=== PATIENT | female | born 1975 | race Caucasian/White ===

== ENCOUNTER 2023-04-26 02:41 | Emergency (ER) | payer OTHER, MEDICAID, SELFPAY ==
[2023-04-26 02:55] VITALS: PULSE 71; O2SAT 97
[2023-04-26 02:59] VITALS: BP 176/81; PULSE 74; RESP 26; TEMP 37.1; O2SAT 97; BMI 41.1
--- NOTE | 2023-04-26 03:06 | DI.RAD.S_ITS ---
PROCEDURE: XR CHEST 2V INDICATIONS: PRODUCTIVE COUGH TECHNIQUE: 2 views of the chest were acquired. COMPARISON: None. FINDINGS: Surgical changes and devices: Status post left clavicle fixation Lungs and pleura: Lungs are clear. No pleural effusions or pneumothorax. Mediastinum: Mediastinal contours are normal. Heart size is normal. Bones and chest wall: No suspicious bony abnormalities. Soft tissues appear unremarkable. IMPRESSION: No acute cardiopulmonary abnormality is seen. Findings are concordant with preliminary interpretation provided by [facility]. Approved by: Jo Pardees M.D. on 04/26/2023 at 11:34
--- NOTE | 2023-04-26 03:07 | ED_ITS ---
HPI - URI/Sore Throat General Chief Complaint: Shortness of Breath/Dyspnea Stated Complaint: cold gotten worse, possible uti, back pain, sweats Time Seen by Provider: 04/26/23 02:44 Source: patient Mode of arrival: Ambulatory History of Present Illness HPI Narrative: 47-year-old female with history of asthma presents by private vehicle from home for cough, body aches, possible UTI. Patient was seen at [place] [facility] 3 days ago for productive cough. She states that she tested negative for strep throat and had an unremarkable x-ray. She was sent home with steroids and Tessalon Perles, but states she was upset because she was discharged without antibiotics. She states that she feels like her cough has gotten worse. She feels intermittently hot and cold and continues to have a productive cough. She also states that she thinks that she may have a urinary tract infection. When she coughs she leaks urine and has been wearing a diaper due to her stress incontinence. Related Data Home Medications Medication Instructions Recorded Confirmed CA PANTOTHENATE/FOLIC ACID/VIT 1 tab PO QDAY ##0 07/05/12 (MULTIVITAMIN) Previous Rx's Medication Instructions Recorded hydrocodone-homatropine 5 mg-1.5 5 ml PO Q4-6H PRN cough #200 mL 04/26/23 mg/5 mL oral syrup (Hydrocodone Compound) Allergies Allergy/AdvReac Type Severity Reaction Status Date / Time amoxicillin Allergy Verified 04/26/23 02:59 latex Allergy Verified 04/26/23 02:59 Review of Systems Review of Systems Narrative: Negative except as noted above Patient History Social History Smoking Status: Current every day smoker Smoking Status: Current every day smoker Substance Use Type: does not use Exam Initial Vital Signs Initial Vital Signs: Vital Signs Pulse Rate 71 04/26/23 02:55 Pulse Oximetry 97 04/26/23 02:55 Const: Awake, alert, no acute distress, nontoxic appearing Cardiac: regular rate, regular rhythm RESP: Speaking in complete sentences without dyspnea, soft expiratory wheezes upper lung james GI: Atraumatic, soft, nontender, nondistended, no rebound, no guarding MSK: Atraumatic, full range of motion, pulses equal Skin: Warm, Dry, intact, no rashes Neuro: AO x3, CN II-XII grossly intact, moves all extremities Psych: affect normal, mood normal, not suicidal, not homicidal Course Orders Ordered: ED Orders 04/26/23 03:06 Chest [XR chest 2V] Stat 04/26/23 03:07 UA Complete [Urinalysis and Microscopic] Stat 04/26/23 03:40 CBC Auto Diff [Complete Blood Count AUTO DIFF] Stat CMP [Comprehensive Metabolic Panel] Stat Discontinued Medications Albuterol/Ipratropium (Albuterol/Ipratropium 3 Ml Ampul) 6 ml INH NOW ONE Stop: 04/26/23 03:07 Last Admin: 04/26/23 03:19 Dose: 6 ml Documented By: Dexamethasone (Dexamethasone 10 Mg/Ml Vial) 10 mg IV NOW ONE Stop: 04/26/23 03:07 Last Admin: 04/26/23 03:52 Dose: 10 mg Documented By: Sodium Chloride (Normal Saline 0.9%) 1,000 mls @ 1,000 mls/hr IV BOLUS ONE Stop: 04/26/23 04:05 Last Admin: 04/26/23 03:47 Dose: 1,000 mls/hr Documented By: Ketorolac Tromethamine (Ketorolac 30 Mg/Ml Vial) 15 mg IV NOW ONE Stop: 04/26/23 03:07 Last Admin: 04/26/23 03:50 Dose: 15 mg Documented By: Ondansetron HCl (Ondansetron 4 Mg/2 Ml Inj) 4 mg IV NOW ONE Stop: 04/26/23 03:07 Last Admin: 04/26/23 03:49 Dose: 4 mg Documented By: Vital Signs Vital signs: Vital Signs - 8 hr 04/26/23 02:55 04/26/23 02:59 04/26/23 03:44 Temperature 98.8 F Pulse Rate 71 74 69 Respiratory Rate 26 H Blood Pressure 176/81 H Pulse Oximetry 97 97 99 Oxygen Delivery Method Room Air 04/26/23 03:46 04/26/23 03:46 04/26/23 04:00 Temperature Pulse Rate 68 Respiratory Rate Blood Pressure 150/74 H 149/72 H Pulse Oximetry 97 Oxygen Delivery Method 04/26/23 04:00 Temperature Pulse Rate 63 Respiratory Rate 18 Blood Pressure Pulse Oximetry 96 Oxygen Delivery Method MDM - URI/Sore Throat Lab Data 04/26/23 03:40 04/26/23 03:40 Labs: Lab Results 04/26/23 Range/Units 03:40 WBC 13.4 H (4.5-11.0) X10^3/uL RBC 4.70 (4.0-5.2) X10^6/uL Hgb 13.1 (12.0-16.0) g/dL Hct 39.6 (36-46) % MCV 84.2 (80-100) fL MCH 27.9 (26-34) PG MCHC 33.1 (30-36) % RDW 12.8 (11.6-14.8) % Plt Count 356 (150-400) X10^3/uL Neut % (Auto) 79.3 H (50-75) % Lymph % (Auto) 15.8 L (25-40) % [place] % (Auto) 3.6 (3-14) % Eos % (Auto) 0.1 L (2-4) % Baso % (Auto) 1.2 (0-2) % Neut # (Auto) 86356 H (5727-0365) /uL Lymph # (Auto) 2100 (4971-3419) /uL [place] # (Auto) 500 (0-900) /uL Eos # (Auto) 0 (0-450) /uL Baso # (Auto) 200 H (0-100) /uL Sodium 140 (137-145) mmol/L Potassium 4.1 (3.4-5.1) mmol/L Chloride 107 (98-107) mmol/L Carbon Dioxide 22 (22-32) mmol/L BUN 9 (7-17) mg/dL Creatinine 0.52 (0.52-1.04) mg/dL Estimated GFR > 60 (>60) mL/min BUN/Creatinine Ratio 17.3 (6-22) Glucose 127 H (70-100) mg/dL Calcium 9.2 (8.4-10.2) mg/dL Total Bilirubin 0.3 (0.2-1.3) mg/dL AST 18 (14-36) IU/L ALT 18 (<35) IU/L Alkaline Phosphatase 67 (38-126) U/L Total Protein 7.9 (6.3-8.2) g/dL Albumin 4.1 (3.5-5.0) g/dL Globulin 3.8 (1.7-4.1) g/dL Albumin/Globulin Ratio 1.1 (1.0-2.8) Point of Care Testing Test Results Negative Urine Dip Bedside Urine Glucose Negative Bedside Urine Bilirubin - Negative Bedside Urine Ketone - Negative Urine Specific [place] 1.01 Bedside Urine Occult Blood +/- Bedside Urine pH 7 Bedside Urine Protein - Negative Bedside Urine Urobilinogen - Negative Bedside Urine Nitrite - Negative Bedside Urine Leukocytes - Negative Esterase MDM Narrative Medical decision making narrative: Well-appearing patient with worsening cough with back pain and stress incontinence following an upper respiratory infection. Patient is speaking in complete sentences without dyspnea, saturating well on room air. She does have mild expiratory wheezes on pulmonary exam. We will order additional steroids and breathing treatments. Patient feeling improved after nebulizers and additional steroids. No further wheezing on pulmonary exam. Laboratory work is significant for mild leukocytosis with WBC count 13.4, however she has been on steroids for the last 3 days and has no other signs or symptoms of a bacterial illness. Urinalysis negative for infection. Two-view chest x-ray negative for pneumonia. Patient advised of lab and imaging findings, we will send additional cough medications to pharmacy of choice. Patient advised of the anticipated course of recovering from bronchitis. She states that she has plenty of refills of her albuterol inhaler and does not need any additional at this time. ED return precautions discussed at bedside. Patient expressed understanding of the plan and is in agreement at this time. All questions answered at the time of discharge. Discharge Plan Departure Patient Disposition: Home Clinical Impression: Bronchitis, Bilateral wheezing Instructions: DI for Acute Bronchitis Prescriptions: New hydrocodone-homatropine [Hydrocodone Compound] 5-1.5 mg/5 mL syrup 5 ml PO Q4-6H PRN (Reason: cough) Qty: 200 0RF No Action CA PANTOTHENATE/FOLIC ACID/VIT (MULTIVITAMIN) 1 tab PO QDAY Qty: 0 Referrals: Man Burks MD [Primary Care Provider] - Stand Alone Forms: Patient Portal/API
[2023-04-26] MEDS: ALBUTEROL/IPRATROPIUM 3 ML AMPUL 6 ML INH (03:19)
[2023-04-26 03:44] VITALS: PULSE 69; O2SAT 99
[2023-04-26 03:46] VITALS: BP 150/74; PULSE 68; O2SAT 97
[2023-04-26] MEDS: SODIUM CHLORIDE 0.9% 1,000 ML 1000 ML IV (03:47)
[2023-04-26] MEDS: ONDANSETRON 4 MG/2 ML INJ IV (03:49)
[2023-04-26] MEDS: KETOROLAC 30 MG/ML VIAL 15 MG IV (03:50)
[2023-04-26] MEDS: DEXAMETHASONE 10 MG/ML VIAL IV (03:52)
[2023-04-26 03:53] LABS: Add Manual Diff / Slide Review NO; Basophils Absolute Auto 200 /uL (0-100); Basophils Percent Auto 1.2 % (0-2); Eosinophils Absolute Auto 0 /uL (0-450); Eosinophils Percent Auto 0.1 % (2-4); Hematocrit 39.6 % (36-46); Hemoglobin 13.1 g/dL (12.0-16.0); Lymphocytes Absolute Auto 2100 /uL (1100-4500); Lymphocytes Percent Auto 15.8 % (25-40); Mean Corpuscular HGB Conc 33.1 % (30-36); Mean Corpuscular Hemoglobin 27.9 PG (26-34); Mean Corpuscular Volume 84.2 fL (80-100); Monocytes Absolute Auto 500 /uL (0-900); Monocytes Percent Auto 3.6 % (3-14); Neutrophils Absolute Auto 10600 /uL (1500-7000); Neutrophils Percent Auto 79.3 % (50-75); Platelet Count 356 X10^3/uL (150-400); Red Cell Distribution Width 12.8 % (11.6-14.8); White Blood Cell Count 13.4 X10^3/uL (4.5-11.0)
[2023-04-26 04:00] VITALS: BP 149/72; PULSE 63; RESP 18; O2SAT 96
[2023-04-26 04:02] LABS: Alanine Aminotransferase 18 IU/L (<35); Albumin 4.1 g/dL (3.5-5.0); Albumin Globulin Ratio 1.1 (1.0-2.8); Alkaline Phosphatase 67 U/L (38-126); Aspartate Aminotransferase 18 IU/L (14-36); BUN Creatinine Ratio 17.3 (6-22); Bilirubin Total 0.3 mg/dL (0.2-1.3); Blood Urea Nitrogen 9 mg/dL (7-17); Calcium 9.2 mg/dL (8.4-10.2); Carbon Dioxide 22 mmol/L (22-32); Chloride 107 mmol/L (98-107); Estimated Glomerular Filt Rate > 60 mL/min (>60); Globulin 3.8 g/dL (1.7-4.1); Glucose 127 mg/dL (70-100); HEMOLYSIS < 15 (0-50); Potassium 4.1 mmol/L (3.4-5.1); Sodium 140 mmol/L (137-145); Total Protein 7.9 g/dL (6.3-8.2)
== END 2023-04-26 05:25 | disposition home or self-care (01) ==
PROVIDERS: Emergency Provider Emergency Medicine; PCP Family Medicine
DX: J40 Bronchitis, not specified as acute or chronic (principal)
CPT/HCPCS: 36415; 71046; 80053; 81003; 81025; 85025; 94640; 96374; 96375; 99284; J1100; J1885; J2405

== ENCOUNTER 2023-10-06 02:35 | Emergency (ER) | payer OTHER, MEDICAID, SELFPAY ==
[2023-10-06 02:40] VITALS: PULSE 88; RESP 18; TEMP 36.6; O2SAT 100; BMI 37.3
--- NOTE | 2023-10-06 03:07 | ED.WOUNDLAC ---
HPI - Wound/Laceration General Chief Complaint: Wound/Laceration Stated Complaint: cut finger left hand Time Seen by Provider: 10/06/23 02:40 Source: patient Mode of arrival: Ambulatory History of Present Illness HPI narrative: 47-year-old female presents for evaluation of laceration. Patient accidentally cut her hand on a piece of staying glass at home while trying to find the TV remote. States that she has had a tetanus shot within the last 5 years. She states that the wound bled a lot initially and she did not have a bandage, so she came to the ER. Related Data Home Medications Medication Instructions Recorded Confirmed CA PANTOTHENATE/FOLIC ACID/VIT 1 tab PO QDAY ##0 07/05/12 (MULTIVITAMIN) Previous Rx's Medication Instructions Recorded hydrocodone-homatropine 5 mg-1.5 5 ml PO Q4-6H PRN cough #200 mL 04/26/23 mg/5 mL oral syrup (Hydrocodone Compound) Allergies Allergy/AdvReac Type Severity Reaction Status Date / Time amoxicillin Allergy Verified 04/26/23 02:59 latex Allergy Verified 04/26/23 02:59 Patient History Social History Smoking Status: Current every day smoker Smoking Status: Current every day smoker Substance Use Type: does not use Exam Initial Vital Signs Initial Vital Signs: Vital Signs Temperature 97.9 F 10/06/23 02:40 Pulse Rate 88 10/06/23 02:40 Respiratory Rate 18 10/06/23 02:40 Pulse Oximetry 100 10/06/23 02:40 Oxygen Delivery Method Room Air 10/06/23 02:40 Const: Awake, alert, no acute distress, nontoxic appearing MSK: Atraumatic, full range of motion, pulses equal Skin: Warm, Dry, 1 cm superficial laceration Neuro: AO x3, CN II-XII grossly intact, moves all extremities Course Vital Signs Vital signs: Vital Signs - 8 hr 10/06/23 02:40 Temperature 97.9 F Pulse Rate 88 Respiratory Rate 18 Pulse Oximetry 100 Oxygen Delivery Method Room Air MDM - Wound/Laceration MDM Narrative Medical decision making narrative: Small laceration from stain glass. Up-to-date on tetanus. Wound cleaned by nursing staff. Small amount of Dermabond applied. Band-Aid applied. Extra Band-Aids sent with the patient home Discharge Plan Departure Patient Disposition: Home Clinical Impression: Laceration Instructions: DI for Minor Laceration Activity Restrictions/Additional Instructions: Keep clean and dry. This will heal on its own in the next several days. Prescriptions: No Action CA PANTOTHENATE/FOLIC ACID/VIT (MULTIVITAMIN) 1 tab PO QDAY Qty: 0 hydrocodone-homatropine [Hydrocodone Compound] 5-1.5 mg/5 mL syrup 5 ml PO Q4-6H PRN (Reason: cough) Qty: 200 0RF Referrals: Man Burks MD [Primary Care Provider] - Stand Alone Forms: Patient Portal/API
== END 2023-10-06 03:29 | disposition home or self-care (01) ==
PROVIDERS: Emergency Provider Emergency Medicine; PCP Family Medicine
DX: S61.219A Laceration without foreign body of unspecified finger without damage to nail, initial encounter (principal); W25.XXXA Contact with sharp glass, initial encounter
CPT/HCPCS: 99281; 99282

== ENCOUNTER 2023-10-29 07:19 | Emergency (ER) | payer OTHER, MEDICAID, SELFPAY ==
[2023-10-29 07:37] VITALS: BP 159/106; PULSE 97; RESP 18; TEMP 37.1; O2SAT 98; BMI 41.1
[2023-10-29 07:44] VITALS: PULSE 88
[2023-10-29 07:46] VITALS: BP 159/106; PULSE 97; RESP 18; TEMP 37.1; O2SAT 98; BMI 41.1
--- NOTE | 2023-10-29 07:59 | ED.EXTPRO ---
HPI - Extremity Problem General Chief complaint: Extremity Problem,Nontraumatic Stated complaint: r knee sx 10/27 needs pain meds Time Seen by Provider: 10/29/23 07:43 Source: patient and family Mode of arrival: Wheelchair History of Present Illness HPI Narrative: Patient healthy 48-year-old female presents today with severe right knee pain. She is status post total knee arthroplasty out of orthopedics and [place] she would surgery on October 26. She reports severe pain. She says she ran out of her oxycodone last night her last dose was at 2:30 a.m.. She called yesterday for refill on her medication they were supposed to send it in but they have not. Denies any fever or chills. There is no erythema. She is trying to keep it elevated as much as possible. Related Data Home Medications Medication Instructions Recorded Confirmed CA PANTOTHENATE/FOLIC ACID/VIT 1 tab PO QDAY ##0 07/05/12 (MULTIVITAMIN) Previous Rx's Medication Instructions Recorded hydrocodone-homatropine 5 mg-1.5 5 ml PO Q4-6H PRN cough #200 mL 04/26/23 mg/5 mL oral syrup (Hydrocodone Compound) Allergies Allergy/AdvReac Type Severity Reaction Status Date / Time amoxicillin Allergy Verified 04/26/23 02:59 latex Allergy Verified 04/26/23 02:59 Patient History Social History Smoking Status: Current every day smoker Smoking Status: Current every day smoker Substance Use Type: does not use Exam Initial Vital Signs Initial Vital Signs: Vital Signs Temperature 98.8 F 10/29/23 07:37 Pulse Rate 97 H 10/29/23 07:37 Respiratory Rate 18 10/29/23 07:37 Blood Pressure 159/106 H 10/29/23 07:37 Pulse Oximetry 98 10/29/23 07:37 Oxygen Delivery Method Room Air 10/29/23 07:37 GENERAL: Crying tearful 48-year-old female CARDIOVASCULAR: peripheral pulses in tact, cap refill <2 sec RESPIRATORY: No respiratory distress, speaks in full sentences without difficulty EXTREMITIES: Normal range of motion, no clubbing or edema. Neurovascularly intact Right lower extremity postsurgical bandage in place Candelario wrap in place Candelario wrap has been removed no significant erythema distal pedal pulse is present NEUROLOGICAL: Cranial nerves II through XII grossly intact. Normal gait and speech. SKIN: Warm, dry, no petechiae, no rashes or lesions. Course Orders Ordered: ED Orders 10/29/23 08:03 US perip venous low extrem rt Stat Discontinued Medications Hydromorphone HCl (Hydromorphone 1 Mg Inj) 1 mg SUBCUT NOW ONE Stop: 10/29/23 08:04 Last Admin: 10/29/23 08:22 Dose: 1 mg Documented By: KIKE Oxycodone HCl (Oxycodone Ir 5 Mg Tablet) 10 mg PO NOW ONE Stop: 10/29/23 09:19 Last Admin: 10/29/23 09:44 Dose: 10 mg Documented By: KIKE Vital Signs Vital signs: Vital Signs - 8 hr 10/29/23 07:37 10/29/23 07:44 10/29/23 07:46 Temperature 98.8 F 98.8 F Pulse Rate 97 H 97 H Pulse Rate [Right Posterior Tibial] 88 Respiratory Rate 18 18 Blood Pressure 159/106 H 159/106 H Pulse Oximetry 98 98 Oxygen Delivery Method Room Air Room Air 10/29/23 08:12 10/29/23 09:47 Temperature Pulse Rate 99 H 69 Pulse Rate [Right Posterior Tibial] Respiratory Rate 18 18 Blood Pressure 160/99 H 178/88 H Pulse Oximetry 96 96 Oxygen Delivery Method Room Air MDM - Extremity (Nontraumatic) Imaging Data US - DVT: Radiologist's Impression: PROCEDURE: US [facility] VENOUS LOW EXTREM RT INDICATIONS: POST TKA - SWELLING/PAIN TECHNIQUE: Real-time imaging, as well as color and pulse Doppler interrogation, were performed of the lower extremity deep veins from the inguinal ligament to the popliteal fossa, with documentation of the visualized calf veins. COMPARISON: None. FINDINGS: The common femoral, femoral, popliteal, and the visualized calf veins are normally compressible, and free of intraluminal thrombus. Color and pulse Doppler demonstrate normal phasic intraluminal flow. There is normal augmentation response to distal compression maneuver. Of note, the proximal to mid posterior tibial vein are not well seen; however, the distal posterior tibial vein is compressible with no thrombus. The peroneal vein is not well seen secondary to edema. The focal area of pain in the right lateral knee corresponds an ovoid complex fluid collection measuring 6.6 x 0.8 x 2.8 cm. IMPRESSION: 1. No findings of lower extremity deep venous thrombosis. Of note, the below the knee veins are not well seen secondary to edema. 2. Small complex fluid collection in the right lateral knee corresponds to focal area of pain measuring 6.6 x 0.8 x 2.8 cm which may reflect a hematoma. Dictated by: Enedina Centeno M.D. on 10/29/2023 at 9:07 MDM Narrative Medical decision making narrative: Patient is a 48-year-old female postop day 3. Right TKA presenting today with severe right knee pain. She is out of her oxycodone. He does have significant swelling on exam and she is quite tearful. Peripheral pulses are intact pain is not out of proportion. No concern for compartment syndrome. She has no erythema or evidence of infection. Ultrasound is negative for DVT but does show swelling and fluid collection right lateral knee measuring 6.6 x 0.8 x 2.8 cm probably reflecting a hematoma at the area of pain for patient At this time patient's orthopedic has called in a prescription for her oxycodone. Recommend supportive care elevation and ice. She was given subcutaneous Dilaudid here in the ED which did seem to help Discharge Plan Departure Patient Disposition: Home Clinical Impression: Post-operative pain Activity Restrictions/Additional Instructions: *You have been diagnosed with postoperative pain *What to do: At this time please elevate and ice as much as possible. Ambulation as tolerated. Please talk with your orthopedic surgeon in regards to pain medications *Continue to take medications as directed *Follow up with your primary care provider in 2-3 days or call [phone] *Return to ER if you should have increasing redness fever pain or any new, worsening or concerning symptoms Prescriptions: No Action CA PANTOTHENATE/FOLIC ACID/VIT (MULTIVITAMIN) 1 tab PO QDAY Qty: 0 hydrocodone-homatropine [Hydrocodone Compound] 5-1.5 mg/5 mL syrup 5 ml PO Q4-6H PRN (Reason: cough) Qty: 200 0RF Referrals: Man Burks MD [Primary Care Provider] - Stand Alone Forms: Patient Portal/API
--- NOTE | 2023-10-29 08:03 | DI.US.S_ITS ---
PROCEDURE: US PERIPH VENOUS LOW EXTREM RT INDICATIONS: POST TKA - SWELLING/PAIN TECHNIQUE: Real-time imaging, as well as color and pulse Doppler interrogation, were performed of the lower extremity deep veins from the inguinal ligament to the popliteal fossa, with documentation of the visualized calf veins. COMPARISON: None. FINDINGS: The common femoral, femoral, popliteal, and the visualized calf veins are normally compressible, and free of intraluminal thrombus. Color and pulse Doppler demonstrate normal phasic intraluminal flow. There is normal augmentation response to distal compression maneuver. Of note, the proximal to mid posterior tibial vein are not well seen; however, the distal posterior tibial vein is compressible with no thrombus. The peroneal vein is not well seen secondary to edema. The focal area of pain in the right lateral knee corresponds an ovoid complex fluid collection measuring 6.6 x 0.8 x 2.8 cm. IMPRESSION: 1. No findings of lower extremity deep venous thrombosis. Of note, the below the knee veins are not well seen secondary to edema. 2. Small complex fluid collection in the right lateral knee corresponds to focal area of pain measuring 6.6 x 0.8 x 2.8 cm which may reflect a hematoma. Dictated by: Enedina Centeno M.D. on 10/29/2023 at 9:07 Approved by: Enedina Centeno M.D. on 10/29/2023 at 9:09
[2023-10-29 08:12] VITALS: BP 160/99; PULSE 99; RESP 18; O2SAT 96
[2023-10-29] MEDS: HYDROMORPHONE 1 MG INJ SUBCUT (08:22)
[2023-10-29] MEDS: OXYCODONE IR 5 MG TABLET 10 MG PO (09:44)
[2023-10-29 09:47] VITALS: BP 178/88; PULSE 69; RESP 18; O2SAT 96
== END 2023-10-29 09:55 | disposition home or self-care (01) ==
PROVIDERS: Emergency Provider Emergency Medicine; Family Provider Family Medicine; PCP Family Medicine
DX: G89.18 Other acute postprocedural pain (principal); M25.561 Pain in right knee; Z96.651 Presence of right artificial knee joint
CPT/HCPCS: 93971; 96372; 99283; J1170

== ENCOUNTER 2024-01-19 13:45 | Outpatient (RCR) | payer OTHER, MEDICAID, SELFPAY ==
--- NOTE | 2023-10-30 15:55 | PT.OIE ---
Current Diagnoses Unilateral primary osteoarthritis, right knee (10/30/23) Stiffness of right knee, not elsewhere classified (10/30/23) Other lack of coordination (10/30/23) Weakness (10/30/23) Visit Care Team Role Provider Type Man Burks MD Family Provider Non-Staff Primary Care Provider Specialty: Family Practice Address: [address] [place] [address], [id number] Email: Abe Cordova DO Attending Provider Non-Staff Referring Provider Specialty: Orthopedic Surgery Address: [address] [place] [address], [id number] Email: Physical Therapy Initial Evaluation PT-OP-A Visit Information Start: 10/30/23 07:30 Freq: Status: Active Protocol: Document 10/30/23 09:03 NM (Rec: 10/30/23 09:54 NM [id number]) Out-Patient Physical Therapy Visit Information Visit Information Visit Type Initial Evaluation Visit Note DOS: 10/27/23 R TKA Latex allergy Visit Start Time 09:05 Visit Stop Time 09:50 Visit Number 04/01 Evaluation Information Evaluation Date 10/30/23 Precautions Precautions latex allergy R TKA DOS 10/27/23 PT-OP-B Current Condition Start: 10/30/23 07:30 Freq: Status: Active Protocol: Document 10/30/23 09:03 NM (Rec: 10/30/23 09:54 NM [id number]) Current Condition History of Current Condition Onset Date DOS 10/27/23 Current Complaints pain, limited ROM and mobility History of Current Condition Pt present s/p R TKA from Dr. Abe Cordova on 10/26, [facility]. She presents with w /c, standard walker. She went to ED yesterday due to pain, she did not have her medication (oxycodone). Pt states that she had severe degeneration of her R knee, no specific AL. 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 States that she thinks she tore something in her L knee due to pain; severely hyperextends her L knee. She did not use an AD prior to surgery but had limited mobility. She is using standard walker at home, working on WB status. She is doing toe circles, ankle pumps, toe wiggles following discharge from hospital. She live with and her mom in an apartment. Pt lives in a home with an elevator, has stairs (lives on 3rd floor). Has a w/c, shower chair, FWW. Her leg is wrapped with soraya bandage, pt states has removed soraya bandage. Wearing 1 sandal . Pt is icing and elevating. Treatment Goals Patient/Caregiver Goals wants to be able to kneel, stairs PT-OP-C Subjective Start: 10/30/23 07:30 Freq: Status: Active Protocol: Document 10/30/23 09:03 NM (Rec: 10/30/23 09:54 NM [id number]) OP-PT Subjective Patient Comments Patient Comments pt consents to participate in PT Patient Questionnaires Lower Extremity Functional Scale LEFS Score 50 OP-PT Pain Assessment Location R knee Pain Location Details anterior knee to foot Intensity 8 Scale Used Numeric (0 - 10) Description Aching,Sharp Frequency Constant Pain Aggravating Factors Position,Changing Position,ADL 's,Activity,Standing,Sitting, Walking Pain Alleviating Factors Cold,Rest PT-OP-F Manual Assessment Start: 10/30/23 07:30 Freq: Status: Active Protocol: Document 10/30/23 09:03 NM (Rec: 10/30/23 17:12 NM [id number]) Manual Assessments Soft Tissue Assessment Soft Tissue Mobility Assessment Increased edema along entire RLE. Decreased R heel cord length Joint Mobility Assessment Joint Mobility Assessment Decreased AROM/PROM R knee with empty end feel PT-OP-G Mobility & Gait Start: 10/30/23 07:30 Freq: Status: Active Protocol: Document 10/30/23 09:03 NM (Rec: 10/30/23 17:12 NM [id number]) OP Mobility Evaluation Bed Mobility Rolling min A to assist with RLE Supine to and from Sit min A to assist with RLE to EOB Transfers Sit to Stand CGA to steady to standard walker, RLE in front and pt NWB OP Gait Assessment Gait Gait Assistance Required: Contact Guard Assist Distance (Feet) 20 Able to Maintain Weight Bearing Status No During Gait Assistive Devices Assistive Device Gait Belt,Standard Walker Gait Deviations General Gait Pattern Antalgic,Decreased Stride Length,Step-to Gait Factors Limiting Gait Function Factors Limiting Gait Function Decreased Activity Tolerance, Decreased Strength,Difficulty Following Directions, Incoordination,Limited Range of Motion,Pain,Poor Balance Comments Gait Comments Pt NWB on RLE despite education regarding WBAT. RLE is plantarflexed PT-OP-J Posture/Palpation/Skin Start: 10/30/23 07:30 Freq: Status: Active Protocol: Document 10/30/23 09:03 NM (Rec: 10/30/23 09:54 NM [id number]) Posture Evaluation Position Standing Head/C-Spine Posture Forward Head L-Spine Posture Increased Lordosis Shoulder Posture (L) Rounded,(R) Rounded,(L) Forward,(R) Forward Pelvis Posture Anteriorly Tilted Weight Distribution Weight Shifted Left,Decreased Wt.Bear on (R) Hip Posture (L) Externally Rotated,(R) Externally Rotated Knee Posture (L) Genu Valgus,(R) Genu Valgus Patellar Posture (L) Superior,(R) Superior Ankle/Foot Posture (R) Plantarflexed Comments Posture Comments Demos strong L knee hyperextension Palpation Assessment Location R knee Palpation Findings Edema,Soft Tissue Tightness Palpation Details Increased edema entire RLE, especially near incision No tenderness along posterior calf to knee/thigh Tenderness along R knee Skin Assessment Circumference Measurement RLE Location ankle figure 8 : 54 cm Comments around patellar: 45 cm Incisional Assessment Incision Appearance/Comments Incision covered by bandage with 1 spot of blood. Otherwise, clean, dry and intact. No signs or symptoms of infection or DVT Other Assessments Skin Assessment Comments Bruising along shanna-lateral thigh, posterior calf PT-OP-K Range of Motion Start: 10/30/23 07:30 Freq: Status: Active Protocol: Document 10/30/23 09:03 NM (Rec: 10/30/23 09:54 NM [id number]) Knee Goniometric Range of Motion Knee Right Flexion Active (degrees) 50 Extension Active (degrees) 20 Comments empty end feel Left Flexion Active (degrees) 120 Hyper-Extension Active 5 PT-OP-M Strength Start: 10/30/23 07:30 Freq: Status: Active Protocol: Document 10/30/23 09:03 NM (Rec: 10/30/23 09:54 NM [id number]) Hip Strength Hip Manual Muscle Testing Right Flexion (L2) 3- Fair- Extension (S1) 3- Fair- Abduction 3- Fair- Adduction 3- Fair- Comments extension tested in standing Left Flexion (L2) 4- Good- Extension (S1) 4- Good- Abduction 4- Good- Adduction 4- Good- Comments extension tested in standing Knee Strength Knee Manual Muscle Testing Right Flexion (S2) 3 Fair Extension (L3) 1 Trace Left Flexion (S2) 4- Good- Extension (L3) 4- Good- Ankle/Foot Strength Ankle and Foot Manual Muscle Testing Right Dorsiflexion (L4) 3+ Fair+ Plantarflexion (S1) 4+ Good+ Left Dorsiflexion (L4) 4 Good Plantarflexion (S1) 4 Good Inversion 4 Good PT-OP-Q Treatments Start: 10/30/23 07:30 Freq: Status: Active Protocol: Document 10/30/23 09:03 NM (Rec: 10/30/23 17:12 NM [id number]) Therapeutic Exercises Supine Exercises knee extension stretch Supine Exercise Name gravity assisted Side right Equipment Used towel roll under ankle Reps/Minutes 30 quad set Supine Exercise Name long sitting Side right Equipment Used small pillow under knee Reps/Minutes 10x2 hold Comments PT tapping at quad to facilitate; edu to perform tapping at home ankle pumps Supine Exercise Name for swelling management Side right Reps/Minutes 30 Sitting Exercises knee extension stretch Sitting Exercise Name gravity assisted (HEP) Side right Equipment Used heel rest of w/c Reps/Minutes 60 Comments cued to use lower surface vs chair, short times only knee flexion stretch Sitting Exercise Name slide RLE bwd, then L assist to flex ext (HEP) Side right Equipment Used AAROM Reps/Minutes 10 with 3 hold Comments cued to remain gentle, not push into pain heel slides Sitting Exercise Name long sitting; AAROM (HEP) Side right Equipment Used gait belt; cued AROM > AAROM to tolerance Reps/Minutes 2x10 Comments reports loosens w/ activity Self-Care/Home Management Treatment Education Patient Education Pain Management,Safety Other Education Education on signs and symptoms of DVT, infection with emphasis to immediately go to ER if occurs Recommended getting FWW for better mobility and to improve WB status PT-OP-T Assessment and Plan Start: 10/30/23 07:30 Freq: Status: Active Protocol: Document 10/30/23 09:03 NM (Rec: 10/30/23 17:12 NM [id number]) Physical Therapy Assessment Rehab Potential Rehabilitation Potential Fair Evaluation Complexity Number of Personal Factors/Comorbidities 3 or More Number of Body Systems Impaired 4 or More Clinical Presentation at Evaluation Stable Impairments Impairments Activity Tolerance,Balance, Edema,Functional Activities, Functional Mobility,Gait, Integument,Pain,Posture,ROM, Sensation,Soft Tissue Mobility ,Strength,Transfers Other Concerns Barriers to Rehabilitation PMH: blood pressure, falls, fibromyalgia, headaches, arthritis, neck pain, back pain, seizures Goals Six Impairment R knee flexion AROM lacking; currenlty 50 deg Short Term Goal (STG) Pt will improve R knee flexion to at least 90 deg in order to demonstrate improved ROM for stairs and gait STG Duration 6 weeks Skilled Nursing Goal (LTG) Pt will improve R knee flexion to at least 115 deg in order to demonstrate improved ROM for stairs and gait LTG Duration 10 weeks Five Impairment stairs Short Term Goal (STG) Pt will be able to perform at least 10 step ups with RLE and 1 or fewer hand rail assist in order to demonstrate increased R knee ROM and strength STG Duration 6 weeks Skilled Nursing Goal (LTG) Pt will perform at least 12 stairs with reciprocal pattern and 1 or fewer hand rail assist in order to demonstrate improved BLE strength and R knee mobility to perform stairs up to apartment LTG Duration 12 weeks Four Impairment gait Short Term Goal (STG) Pt will ambulate without LRAD at least short community distances (500 ft) in order to demonstrate improved BLE strength and normalized gait mechanics, if appropriate STG Duration 6 weeks Skilled Nursing Goal (LTG) Pt will ambulate without LRAD with normalized gait mechanics at least 1000 ft in order to demonstrate improved BLE strength, if appropriate LTG Duration 12 weeks Three Impairment transfers Short Term Goal (STG) Pt will be able to transfer on /off bed IND in order to demonstrate improved strength and less caregiver burden STG Duration 3 weeks Skilled Nursing Goal (LTG) Pt will be able to perform at least 10 STS with or without LRAD in order to demonstrate improved BLE strength for transfers and gait LTG Duration 12 weeks Two Impairment R knee strength Short Term Goal (STG) Pt will improve R knee flex/ ext strength to at least 4-/5 MMT in order to demonstrate increased strength for gait, transfers, and functional mobility STG Duration 8 weeks Telephoner Goal (LTG) Pt will improve R knee flex/ ext strength to at least 4+/5 MMT in order to demonstrate increased strength for gait, transfers, and functional mobility LTG Duration 12 weeks One Impairment R knee AROM ext lacking 20 deg Short Term Goal (STG) Pt will improve R knee extension AROM to at least 10 deg in order to improve terminal extension for gait STG Duration 4 weeks Skilled Nursing Goal (LTG) Pt will improve R knee extension AROM to at least 3 deg in order to improve terminal extension for gait LTG Duration 8 weeks Assessment Summary Assessment Pt is a 48 y.o. female presenting s/p R TKA performed on 10/28/23. Pt is currently using a wheelchair for mobility and a standard walker for ambulation; pt has several DME in her home. Pt is able to be WBAT, but is currently not placing weight on RLE due to pain during gait . PT educated pt on WB precautions, in addition to recommending use of FWW instead of standard walker. Pt currently has impairments in R knee ROM, strength, pain management, gait, standing tolerance, balance, activity tolerance, and QOL. Currently, pt has decreased quad activation. Pt's pain is well managed with medication and cryotherapy. Pt's incision is covered by bandage which is intact; no signs or symptoms of infection or DVT; pt and family educated on signs and symptoms, in addition to information regarding immediate transport to ED. Pt has limited number of insurance visits; thus, plan to reduce frequency as pt's ROM progresses. PT educated pt on exam findings and strongly emphasized importance of performing HEP for carryover between sessions. She would benefit from skilled PT for R knee mobility and strengthening, gait, and balance training in order to improve activity tolerance and functional mobility. Physical Therapy Plan Frequency and Duration Frequency of Treatment 1-2x/wk Duration of treatment (weeks) 12 Plan of Care Start Date 10/30/23 Plan of Care End Date 01/22/24 Therapeutic Interventions Therapeutic Interventions Balance Training,Gait Training ,Home Exercise Program,Joint Mobilizations,Lymphedema Management,Manual Therapy, Neuromuscular Re-education, Orthotic/Prosthetic Management ,Patient/Caregiver Education, Self-Care/Home Management, Sensory Integration,Soft Tissue Mobilization, Therapeutic Activities, Therapeutic Exercises Modalities Cold Pack/Ice Massage,Electric Stimulation,Hot Packs, Ultrasound Next Visit Focus/Plan Next Note Type Treatment Note Next Visit Plan e-stim quad swelling management. Review HEP: QS, knee flex and ext stretches, Heel slides, seated hip abduction, clams
--- NOTE | 2023-11-02 15:42 | PT.OTN ---
Current Diagnoses Unilateral primary osteoarthritis, right knee (11/02/23) Stiffness of right knee, not elsewhere classified (11/02/23) Other lack of coordination (11/02/23) Weakness (11/02/23) Physical Therapy Treatment Note PT-OP-A Visit Information Start: 10/30/23 07:30 Freq: Status: Active Protocol: Document 11/02/23 09:02 NM (Rec: 11/02/23 09:29 NM [id number]) Out-Patient Physical Therapy Visit Information Visit Information Visit Type Treatment Note Visit Note DOS: 10/27/23 R TKA Latex allergy Visit Start Time 09:02 Visit Stop Time 09:45 Visit Number 05/02 Evaluation Information Evaluation Date 10/30/23 Precautions Precautions latex allergy R TKA DOS 10/27/23 PT-OP-B Current Condition Start: 10/30/23 07:30 Freq: Status: Active Protocol: Document 10/30/23 09:03 NM (Rec: 10/30/23 09:54 NM [id number]) Current Condition History of Current Condition Onset Date DOS 10/27/23 Current Complaints pain, limited ROM and mobility History of Current Condition Pt present s/p R TKA from Dr. Abe Cordova on 10/26, [facility]. She presents with w /c, standard walker. She went to ED yesterday due to pain, she did not have her medication (oxycodone). Pt states that she had severe degeneration of her R knee, no specific AL. 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 States that she thinks she tore something in her L knee due to pain; severely hyperextends her L knee. She did not use an AD prior to surgery but had limited mobility. She is using standard walker at home, working on WB status. She is doing toe circles, ankle pumps, toe wiggles following discharge from hospital. She live with and her mom in an apartment. Pt lives in a home with an elevator, has stairs (lives on 3rd floor). Has a w/c, shower chair, FWW. Her leg is wrapped with soraya bandage, pt states has removed soraya bandage. Wearing 1 sandal . Pt is icing and elevating. Treatment Goals Patient/Caregiver Goals wants to be able to kneel, stairs PT-OP-C Subjective Start: 10/30/23 07:30 Freq: Status: Active Protocol: Document 11/02/23 09:02 NM (Rec: 11/02/23 09:29 NM [id number]) OP-PT Subjective Patient Comments Patient Comments Pt presents with w/c today, no walker. She did not go to [facility] on Thursday to get a different walker, so no walker right now; planning on going tomorrow when open. States / R knee pain, just took a pill this am PT-OP-F Manual Assessment Start: 10/30/23 07:30 Freq: Status: Active Protocol: Document 10/30/23 09:03 NM (Rec: 10/30/23 17:12 NM [id number]) Manual Assessments Soft Tissue Assessment Soft Tissue Mobility Assessment Increased edema along entire RLE. Decreased R heel cord length Joint Mobility Assessment Joint Mobility Assessment Decreased AROM/PROM R knee with empty end feel PT-OP-G Mobility & Gait Start: 10/30/23 07:30 Freq: Status: Active Protocol: Document 10/30/23 09:03 NM (Rec: 10/30/23 17:12 NM [id number]) OP Mobility Evaluation Bed Mobility Rolling min A to assist with RLE Supine to and from Sit min A to assist with RLE to EOB Transfers Sit to Stand CGA to steady to standard walker, RLE in front and pt NWB OP Gait Assessment Gait Gait Assistance Required: Contact Guard Assist Distance (Feet) 20 Able to Maintain Weight Bearing Status No During Gait Assistive Devices Assistive Device Gait Belt,Standard Walker Gait Deviations General Gait Pattern Antalgic,Decreased Stride Length,Step-to Gait Factors Limiting Gait Function Factors Limiting Gait Function Decreased Activity Tolerance, Decreased Strength,Difficulty Following Directions, Incoordination,Limited Range of Motion,Pain,Poor Balance Comments Gait Comments Pt NWB on RLE despite education regarding WBAT. RLE is plantarflexed PT-OP-J Posture/Palpation/Skin Start: 10/30/23 07:30 Freq: Status: Active Protocol: Document 10/30/23 09:03 NM (Rec: 10/30/23 09:54 NM [id number]) Posture Evaluation Position Standing Head/C-Spine Posture Forward Head L-Spine Posture Increased Lordosis Shoulder Posture (L) Rounded,(R) Rounded,(L) Forward,(R) Forward Pelvis Posture Anteriorly Tilted Weight Distribution Weight Shifted Left,Decreased Wt.Bear on (R) Hip Posture (L) Externally Rotated,(R) Externally Rotated Knee Posture (L) Genu Valgus,(R) Genu Valgus Patellar Posture (L) Superior,(R) Superior Ankle/Foot Posture (R) Plantarflexed Comments Posture Comments Demos strong L knee hyperextension Palpation Assessment Location R knee Palpation Findings Edema,Soft Tissue Tightness Palpation Details Increased edema entire RLE, especially near incision No tenderness along posterior calf to knee/thigh Tenderness along R knee Skin Assessment Circumference Measurement RLE Location ankle figure 8 : 54 cm Comments around patellar: 45 cm Incisional Assessment Incision Appearance/Comments Incision covered by bandage with 1 spot of blood. Otherwise, clean, dry and intact. No signs or symptoms of infection or DVT Other Assessments Skin Assessment Comments Bruising along shanna-lateral thigh, posterior calf PT-OP-K Range of Motion Start: 10/30/23 07:30 Freq: Status: Active Protocol: Document 10/30/23 09:03 NM (Rec: 10/30/23 09:54 NM [id number]) Knee Goniometric Range of Motion Knee Right Flexion Active (degrees) 50 Extension Active (degrees) 20 Comments empty end feel Left Flexion Active (degrees) 120 Hyper-Extension Active 5 PT-OP-M Strength Start: 10/30/23 07:30 Freq: Status: Active Protocol: Document 10/30/23 09:03 NM (Rec: 10/30/23 09:54 NM [id number]) Hip Strength Hip Manual Muscle Testing Right Flexion (L2) 3- Fair- Extension (S1) 3- Fair- Abduction 3- Fair- Adduction 3- Fair- Comments extension tested in standing Left Flexion (L2) 4- Good- Extension (S1) 4- Good- Abduction 4- Good- Adduction 4- Good- Comments extension tested in standing Knee Strength Knee Manual Muscle Testing Right Flexion (S2) 3 Fair Extension (L3) 1 Trace Left Flexion (S2) 4- Good- Extension (L3) 4- Good- Ankle/Foot Strength Ankle and Foot Manual Muscle Testing Right Dorsiflexion (L4) 3+ Fair+ Plantarflexion (S1) 4+ Good+ Left Dorsiflexion (L4) 4 Good Plantarflexion (S1) 4 Good Inversion 4 Good PT-OP-Q Treatments Start: 10/30/23 07:30 Freq: Status: Active Protocol: Document 11/02/23 09:02 NM (Rec: 11/02/23 09:29 NM [id number]) Therapeutic Exercises Supine Exercises quad set Supine Exercise Name long sitting Side right Equipment Used small pillow under knee Reps/Minutes 5x3 Comments PT tapping at quad to facilitate; trace activation Sitting Exercises march Sitting Exercise Name edu to trial at home Side right Reps/Minutes 5 Comments very limited ROM LAQ Sitting Exercise Name edu to trial at home Side right Equipment Used pt tapping on quad Reps/Minutes 5 Comments limited ROM heel slides Sitting Exercise Name long sitting; AAROM (HEP review) Side right Equipment Used 1. gait belt; cued AROM > AAROM to tolerance, 2. with roller Reps/Minutes 1. 10 w/ 3, 2. 5 w/ 5 Comments reports loosens w/ activity Gait Training Gait Activity FWW Device Used FWW Level of Assistance close SBA-CGA prn Surface stable Distance/Duration 40 ft Treatment Focus WBAT, foot flat, sequencing Comments Pt continues to demonstrate tendency for NWB on RLE with R foot pointed. Improved with cueing for foot flat in stance (unable to achieve heel strike) and increase use of UE to offload RLE; however, limited WB on RLE. Demos strong step to pattern Manual Therapy Treatment Consent Patient gave verbal consent for manual Yes treatment Soft Tissue Mobilization R knee Body Location swelling management Mobilization Type Rolling Intensity/Depth Superficial Body Position Hooklying Comments Superficial distal > proximal from ankle to thigh to swelling management. Educated on use of compression hose PT-OP-R Modalities Start: 11/02/23 09:29 Freq: Status: Active Protocol: Document 11/02/23 09:02 NM (Rec: 11/02/23 09:33 NM [id number]) Electric Stimulation Electric Stimulation German Stimulation Body Location R quad Intensity 16.5 Frequency 50 bps Contraction Type Normal Patient Position Sitting Comments 8 minutes: 10/20 cycle w/ 5 sec ramp in long sitting. Small pillow under leg for support, performing quad set. Monitored throughout for pain PT-OP-T Assessment and Plan Start: 10/30/23 07:30 Freq: Status: Active Protocol: Document 11/02/23 09:02 NM (Rec: 11/02/23 09:29 NM [id number]) Physical Therapy Assessment Goals Six Impairment R knee flexion AROM lacking; currenlty 50 deg Short Term Goal (STG) Pt will improve R knee flexion to at least 90 deg in order to demonstrate improved ROM for stairs and gait STG Duration 6 weeks Shelter Goal (LTG) Pt will improve R knee flexion to at least 115 deg in order to demonstrate improved ROM for stairs and gait LTG Duration 10 weeks Five Impairment stairs Short Term Goal (STG) Pt will be able to perform at least 10 step ups with RLE and 1 or fewer hand rail assist in order to demonstrate increased R knee ROM and strength STG Duration 6 weeks Social Work Nurse Goal (LTG) Pt will perform at least 12 stairs with reciprocal pattern and 1 or fewer hand rail assist in order to demonstrate improved BLE strength and R knee mobility to perform stairs up to apartment LTG Duration 12 weeks Four Impairment gait Short Term Goal (STG) Pt will ambulate without LRAD at least short community distances (500 ft) in order to demonstrate improved BLE strength and normalized gait mechanics, if appropriate STG Duration 6 weeks Social Work Nurse Goal (LTG) Pt will ambulate without LRAD with normalized gait mechanics at least 1000 ft in order to demonstrate improved BLE strength, if appropriate LTG Duration 12 weeks Three Impairment transfers Short Term Goal (STG) Pt will be able to transfer on /off bed IND in order to demonstrate improved strength and less caregiver burden STG Duration 3 weeks Shelter Goal (LTG) Pt will be able to perform at least 10 STS with or without LRAD in order to demonstrate improved BLE strength for transfers and gait LTG Duration 12 weeks Two Impairment R knee strength Short Term Goal (STG) Pt will improve R knee flex/ ext strength to at least 4-/5 MMT in order to demonstrate increased strength for gait, transfers, and functional mobility STG Duration 8 weeks Social Work Nurse Goal (LTG) Pt will improve R knee flex/ ext strength to at least 4+/5 MMT in order to demonstrate increased strength for gait, transfers, and functional mobility LTG Duration 12 weeks One Impairment R knee AROM ext lacking 20 deg Short Term Goal (STG) Pt will improve R knee extension AROM to at least 10 deg in order to improve terminal extension for gait STG Duration 4 weeks Social Work Nurse Goal (LTG) Pt will improve R knee extension AROM to at least 3 deg in order to improve terminal extension for gait LTG Duration 8 weeks Assessment Summary Assessment Pt tolerated session fair with good effort. Demos small improvement in quad/hip flexor activation compared to at initial evaluation Thursday; however, still trace activation of quad. Strong limitation in R knee extension and flexion AROM. Pt responds well to German e-stim to improve quad facilitation, but still limited; has decreased hip flexion AROM in sitting as well. Initiated manual therapy to assist with superfical soft tissue mobilization and swelling management of RLE. PT re- educated pt on elevation above heart level with cryotherapy. Requires less assist with transfers on/off bed, in addition to STS; still requires at 2 UE assist (1 FWW and 1 on chair) to rise. During gait treatment, pt still demosntrates strong preference for NWB of RLE. Demos slightly smoother motion with FWW than with standard walker, able to use UE to offload better with cueing. Pt also requires cues for WBAT on RLE, PT providing verbal cues for at least foot flat in stance with UE assist vs maintain knee flex with ankle plantarflexion. Pt would benefit from skilled PT for R knee mobility and strengthening in order to improve functional mobility. Physical Therapy Plan Frequency and Duration Frequency of Treatment 1-2x/wk Duration of treatment (weeks) 12 Plan of Care Start Date 10/30/23 Plan of Care End Date 01/22/24 Therapeutic Interventions Therapeutic Interventions Balance Training,Gait Training ,Home Exercise Program,Joint Mobilizations,Lymphedema Management,Manual Therapy, Neuromuscular Re-education, Orthotic/Prosthetic Management ,Patient/Caregiver Education, Self-Care/Home Management, Sensory Integration,Soft Tissue Mobilization, Therapeutic Activities, Therapeutic Exercises Modalities Cold Pack/Ice Massage,Electric Stimulation,Hot Packs, Ultrasound Next Visit Focus/Plan Next Note Type Treatment Note Next Visit Plan e-stim quad swelling management Review HEP: QS amd SAQ, knee flex and ext stretches, Heel slides, seated hip abduction, clams. STS, wall slides
--- NOTE | 2023-11-06 12:53 | PT.OTN ---
Current Diagnoses Unilateral primary osteoarthritis, right knee (11/06/23) Stiffness of right knee, not elsewhere classified (11/06/23) Other lack of coordination (11/06/23) Weakness (11/06/23) Physical Therapy Treatment Note PT-OP-A Visit Information Start: 10/30/23 07:30 Freq: Status: Active Protocol: Document 11/06/23 11:17 NM (Rec: 11/06/23 12:28 NM [id number]) Out-Patient Physical Therapy Visit Information Visit Information Visit Type Treatment Note Visit Note DOS: 10/27/23 R TKA Latex allergy Visit Start Time 11:19 Visit Stop Time 12:09 Visit Number 05/30 Evaluation Information Evaluation Date 10/30/23 Precautions Precautions latex allergy R TKA DOS 10/27/23 PT-OP-B Current Condition Start: 10/30/23 07:30 Freq: Status: Active Protocol: Document 10/30/23 09:03 NM (Rec: 10/30/23 09:54 NM [id number]) Current Condition History of Current Condition Onset Date DOS 10/27/23 Current Complaints pain, limited ROM and mobility History of Current Condition Pt present s/p R TKA from Dr. Abe Cordova on 10/26, [facility]. She presents with w /c, standard walker. She went to ED yesterday due to pain, she did not have her medication (oxycodone). Pt states that she had severe degeneration of her R knee, no specific AL. 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 States that she thinks she tore something in her L knee due to pain; severely hyperextends her L knee. She did not use an AD prior to surgery but had limited mobility. She is using standard walker at home, working on WB status. She is doing toe circles, ankle pumps, toe wiggles following discharge from hospital. She live with and her mom in an apartment. Pt lives in a home with an elevator, has stairs (lives on 3rd floor). Has a w/c, shower chair, FWW. Her leg is wrapped with soraya bandage, pt states has removed soraya bandage. Wearing 1 sandal . Pt is icing and elevating. Treatment Goals Patient/Caregiver Goals wants to be able to kneel, stairs PT-OP-C Subjective Start: 10/30/23 07:30 Freq: Status: Active Protocol: Document 11/06/23 11:17 NM (Rec: 11/06/23 12:28 NM [id number]) OP-PT Subjective Patient Comments Patient Comments Pt presents with increased swelling in RLE, bruising evident at ankle to knee. Swelling is increased at thigh , calf. Pt has been wearing a compression sock but states that it broke so she needs a new one. Her pain levels fluctuate between 7-8/10. Pt also reports that she slept a lot yesterday so didn't walk as much. States better getting into bed PT-OP-F Manual Assessment Start: 10/30/23 07:30 Freq: Status: Active Protocol: Document 10/30/23 09:03 NM (Rec: 10/30/23 17:12 NM [id number]) Manual Assessments Soft Tissue Assessment Soft Tissue Mobility Assessment Increased edema along entire RLE. Decreased R heel cord length Joint Mobility Assessment Joint Mobility Assessment Decreased AROM/PROM R knee with empty end feel PT-OP-G Mobility & Gait Start: 10/30/23 07:30 Freq: Status: Active Protocol: Document 10/30/23 09:03 NM (Rec: 10/30/23 17:12 NM [id number]) OP Mobility Evaluation Bed Mobility Rolling min A to assist with RLE Supine to and from Sit min A to assist with RLE to EOB Transfers Sit to Stand CGA to steady to standard walker, RLE in front and pt NWB OP Gait Assessment Gait Gait Assistance Required: Contact Guard Assist Distance (Feet) 20 Able to Maintain Weight Bearing Status No During Gait Assistive Devices Assistive Device Gait Belt,Standard Walker Gait Deviations General Gait Pattern Antalgic,Decreased Stride Length,Step-to Gait Factors Limiting Gait Function Factors Limiting Gait Function Decreased Activity Tolerance, Decreased Strength,Difficulty Following Directions, Incoordination,Limited Range of Motion,Pain,Poor Balance Comments Gait Comments Pt NWB on RLE despite education regarding WBAT. RLE is plantarflexed PT-OP-J Posture/Palpation/Skin Start: 10/30/23 07:30 Freq: Status: Active Protocol: Document 10/30/23 09:03 NM (Rec: 10/30/23 09:54 NM [id number]) Posture Evaluation Position Standing Head/C-Spine Posture Forward Head L-Spine Posture Increased Lordosis Shoulder Posture (L) Rounded,(R) Rounded,(L) Forward,(R) Forward Pelvis Posture Anteriorly Tilted Weight Distribution Weight Shifted Left,Decreased Wt.Bear on (R) Hip Posture (L) Externally Rotated,(R) Externally Rotated Knee Posture (L) Genu Valgus,(R) Genu Valgus Patellar Posture (L) Superior,(R) Superior Ankle/Foot Posture (R) Plantarflexed Comments Posture Comments Demos strong L knee hyperextension Palpation Assessment Location R knee Palpation Findings Edema,Soft Tissue Tightness Palpation Details Increased edema entire RLE, especially near incision No tenderness along posterior calf to knee/thigh Tenderness along R knee Skin Assessment Circumference Measurement RLE Location ankle figure 8 : 54 cm Comments around patellar: 45 cm Incisional Assessment Incision Appearance/Comments Incision covered by bandage with 1 spot of blood. Otherwise, clean, dry and intact. No signs or symptoms of infection or DVT Other Assessments Skin Assessment Comments Bruising along shanna-lateral thigh, posterior calf PT-OP-K Range of Motion Start: 10/30/23 07:30 Freq: Status: Active Protocol: Document 10/30/23 09:03 NM (Rec: 10/30/23 09:54 NM [id number]) Knee Goniometric Range of Motion Knee Right Flexion Active (degrees) 50 Extension Active (degrees) 20 Comments empty end feel Left Flexion Active (degrees) 120 Hyper-Extension Active 5 PT-OP-M Strength Start: 10/30/23 07:30 Freq: Status: Active Protocol: Document 10/30/23 09:03 NM (Rec: 10/30/23 09:54 NM [id number]) Hip Strength Hip Manual Muscle Testing Right Flexion (L2) 3- Fair- Extension (S1) 3- Fair- Abduction 3- Fair- Adduction 3- Fair- Comments extension tested in standing Left Flexion (L2) 4- Good- Extension (S1) 4- Good- Abduction 4- Good- Adduction 4- Good- Comments extension tested in standing Knee Strength Knee Manual Muscle Testing Right Flexion (S2) 3 Fair Extension (L3) 1 Trace Left Flexion (S2) 4- Good- Extension (L3) 4- Good- Ankle/Foot Strength Ankle and Foot Manual Muscle Testing Right Dorsiflexion (L4) 3+ Fair+ Plantarflexion (S1) 4+ Good+ Left Dorsiflexion (L4) 4 Good Plantarflexion (S1) 4 Good Inversion 4 Good PT-OP-Q Treatments Start: 10/30/23 07:30 Freq: Status: Active Protocol: Document 11/06/23 11:17 NM (Rec: 11/06/23 12:28 NM [id number]) Therapeutic Exercises Supine Exercises SAQ Supine Exercise Name HEP Side right Equipment Used small foam roller Reps/Minutes 2x8 w/ PT assist for TKE at end range Comments improved quad activation, minor end range lag knee flexion Side bilateral Equipment Used blue andorran ball Reps/Minutes 15 ea Comments cued use RLE more than L; ROM improve 90 to 100 deg knee extension stretch Supine Exercise Name gravity assisted Side right Equipment Used towel roll under ankle Reps/Minutes 30 quad set Supine Exercise Name long sitting Side right Equipment Used small pillow under knee Reps/Minutes 5x3 Comments PT tapping at quad to facilitate; trace activation ankle pumps Supine Exercise Name for swelling management Side right Equipment Used elevated on bolster Reps/Minutes 2x60 Sitting Exercises knee extension Side right Resistance AROM Equipment Used foot pressing into blue andorran ball for TKE Reps/Minutes 15 with 2 hold Comments improved quad activation, fatiguing; PT assist w/ positioning march Side right Reps/Minutes 10 Comments warm up; improved ROM LAQ Side right Reps/Minutes 3 Comments improved quad activation and ROM but still limited overall knee flexion stretch Sitting Exercise Name slide RLE bwd, then L assist to flex ext (HEP review) Side right Equipment Used AROM > AAROM w/ slider Reps/Minutes 15 with 3 hold Comments cued to remain gentle, not push into pain Gait Training Gait Activity FWW Device Used FWW Level of Assistance close SBA Surface stable Distance/Duration 100 ft, 50 ft, 25 ft, 25 ft Treatment Focus WBAT, foot flat, sequencing, step through pattern Comments Improved WB on RLE with initial cueing as pt hesitant. Able to maintain foot flat, unable to heel strike but improved toe off from stance phase. Still demos step to pattern with LLE. Requires cues to push with UE more with R stance to decrease pain and improve TKE Manual Therapy Treatment Other Other Manual Treatments Assessment for DVT: Pt continues to present with bruising along R anterior and posterior lower leg, in addition to dark bruises along R heel. No increased redness or temperature compared to LLE . No tenderness along posterior calf except along bruising near knee. (-) Cody' s sign. with Farhad Jiménez, PT Swellin cm at R ankle circumferance (28 cm L), 50 cm at mid calf (30 cm L), 46 cm R at patella (40 cm L), 58 cm figure 8 Self-Care/Home Management Treatment Education Other Education 8 minutes- with Farhad Jiménez , PT, education on signs/ symptoms of DVT and swelling management PT-OP-R Modalities Start: 11/02/23 09:29 Freq: Status: Active Protocol: Document 11/06/23 11:17 NM (Rec: 11/06/23 12:28 NM [id number]) Hot Pack/Cold Pack Treatment Cold Pack Location R knee Patient Position Hooklying Patient Tolerance Good Comments skin PT-OP-T Assessment and Plan Start: 10/30/23 07:30 Freq: Status: Active Protocol: Document 11/06/23 11:17 NM (Rec: 11/06/23 12:28 NM [id number]) Physical Therapy Assessment Goals Six Impairment R knee flexion AROM lacking; currenlty 50 deg Short Term Goal (STG) Pt will improve R knee flexion to at least 90 deg in order to demonstrate improved ROM for stairs and gait STG Duration 6 weeks Shelter Goal (LTG) Pt will improve R knee flexion to at least 115 deg in order to demonstrate improved ROM for stairs and gait LTG Duration 10 weeks Five Impairment stairs Short Term Goal (STG) Pt will be able to perform at least 10 step ups with RLE and 1 or fewer hand rail assist in order to demonstrate increased R knee ROM and strength STG Duration 6 weeks Shelter Goal (LTG) Pt will perform at least 12 stairs with reciprocal pattern and 1 or fewer hand rail assist in order to demonstrate improved BLE strength and R knee mobility to perform stairs up to apartment LTG Duration 12 weeks Four Impairment gait Short Term Goal (STG) Pt will ambulate without LRAD at least short community distances (500 ft) in order to demonstrate improved BLE strength and normalized gait mechanics, if appropriate STG Duration 6 weeks Cissp Goal (LTG) Pt will ambulate without LRAD with normalized gait mechanics at least 1000 ft in order to demonstrate improved BLE strength, if appropriate LTG Duration 12 weeks Three Impairment transfers Short Term Goal (STG) Pt will be able to transfer on /off bed IND in order to demonstrate improved strength and less caregiver burden STG Duration 3 weeks Shelter Goal (LTG) Pt will be able to perform at least 10 STS with or without LRAD in order to demonstrate improved BLE strength for transfers and gait LTG Duration 12 weeks Two Impairment R knee strength Short Term Goal (STG) Pt will improve R knee flex/ ext strength to at least 4-/5 MMT in order to demonstrate increased strength for gait, transfers, and functional mobility STG Duration 8 weeks Cissp Goal (LTG) Pt will improve R knee flex/ ext strength to at least 4+/5 MMT in order to demonstrate increased strength for gait, transfers, and functional mobility LTG Duration 12 weeks One Impairment R knee AROM ext lacking 20 deg Short Term Goal (STG) Pt will improve R knee extension AROM to at least 10 deg in order to improve terminal extension for gait STG Duration 4 weeks Shelter Goal (LTG) Pt will improve R knee extension AROM to at least 3 deg in order to improve terminal extension for gait LTG Duration 8 weeks Assessment Summary Assessment Pt tolerated session well. Currently 10 days post-op. Demos improved quad activation and knee flexion with exercise today. Pt able to perform SAQ with slight knee ext lag compared to last session. Demos good effort. Continued with promoting knee extension ROM and quad facilitation with knee extension into a ball. Better quad/hip flexor activation today in sitting. Pt R knee flexion AROM improved from 90 deg to 100 deg following knee flex on ball. Emphasis on gait training today to improve pt WB on RLE in stance and for improved weight acceptance into foot flat. Pt still demos hesistant step-to gait pattern but improved with reps . Fatigues quickly and limited by decreased activity tolerance. Pt still has increased swelling in RLE. Educated on signs/symptoms DVT . Physical Therapy Plan Frequency and Duration Frequency of Treatment 1-2x/wk Duration of treatment (weeks) 12 Plan of Care Start Date 10/30/23 Plan of Care End Date 01/22/24 Therapeutic Interventions Therapeutic Interventions Balance Training,Gait Training ,Home Exercise Program,Joint Mobilizations,Lymphedema Management,Manual Therapy, Neuromuscular Re-education, Orthotic/Prosthetic Management ,Patient/Caregiver Education, Self-Care/Home Management, Sensory Integration,Soft Tissue Mobilization, Therapeutic Activities, Therapeutic Exercises Modalities Cold Pack/Ice Massage,Electric Stimulation,Hot Packs, Ultrasound Next Visit Focus/Plan Next Note Type Treatment Note Next Visit Plan e-stim quad for SAQ swelling management work STS, QS and SAQ > LAQ, knee ext into ball, wall slide or ball knee flex, knee flex and ext stretches, seated hip abduction, clams. STS, wall slides. Gait to promote WBAT, step through
--- NOTE | 2023-11-10 16:33 | PT.OTN ---
Current Diagnoses Unilateral primary osteoarthritis, right knee (11/13/23) Stiffness of right knee, not elsewhere classified (11/13/23) Other lack of coordination (11/13/23) Weakness (11/13/23) Physical Therapy Treatment Note PT-OP-A Visit Information Start: 10/30/23 07:30 Freq: Status: Active Protocol: Document 11/17/23 16:16 TS (Rec: 11/17/23 16:23 TS [id number]) Out-Patient Physical Therapy Visit Information Visit Information Visit Type Treatment Note Visit Note DOS: 10/27/23 R TKA Latex allergy Visit Start Time 13:45 Visit Stop Time 14:28 Visit Number 06/30 Number of TEST RACK OPERATOR Visits 1 PT-OP-B Current Condition Start: 10/30/23 07:30 Freq: Status: Active Protocol: Document 10/30/23 09:03 NM (Rec: 10/30/23 09:54 NM [id number]) Current Condition History of Current Condition Onset Date DOS 10/27/23 Current Complaints pain, limited ROM and mobility History of Current Condition Pt present s/p R TKA from Dr. Abe Cordova on 10/26, [facility]. She presents with w /c, standard walker. She went to ED yesterday due to pain, she did not have her medication (oxycodone). Pt states that she had severe degeneration of her R knee, no specific AL. 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 States that she thinks she tore something in her L knee due to pain; severely hyperextends her L knee. She did not use an AD prior to surgery but had limited mobility. She is using standard walker at home, working on WB status. She is doing toe circles, ankle pumps, toe wiggles following discharge from hospital. She live with and her mom in an apartment. Pt lives in a home with an elevator, has stairs (lives on 3rd floor). Has a w/c, shower chair, FWW. Her leg is wrapped with soraya bandage, pt states has removed soraya bandage. Wearing 1 sandal . Pt is icing and elevating. Treatment Goals Patient/Caregiver Goals wants to be able to kneel, stairs PT-OP-C Subjective Start: 10/30/23 07:30 Freq: Status: Active Protocol: Document 11/17/23 16:16 TS (Rec: 11/17/23 16:23 TS [id number]) OP-PT Subjective Patient Comments Patient Comments Pt reports using heat on knee for pain. She has been doing her HEP and has been ambulating out in the community. Bruising on leg is mostly gone. PT-OP-F Manual Assessment Start: 10/30/23 07:30 Freq: Status: Active Protocol: Document 10/30/23 09:03 NM (Rec: 10/30/23 17:12 NM [id number]) Manual Assessments Soft Tissue Assessment Soft Tissue Mobility Assessment Increased edema along entire RLE. Decreased R heel cord length Joint Mobility Assessment Joint Mobility Assessment Decreased AROM/PROM R knee with empty end feel PT-OP-G Mobility & Gait Start: 10/30/23 07:30 Freq: Status: Active Protocol: Document 10/30/23 09:03 NM (Rec: 10/30/23 17:12 NM [id number]) OP Mobility Evaluation Bed Mobility Rolling min A to assist with RLE Supine to and from Sit min A to assist with RLE to EOB Transfers Sit to Stand CGA to steady to standard walker, RLE in front and pt NWB OP Gait Assessment Gait Gait Assistance Required: Contact Guard Assist Distance (Feet) 20 Able to Maintain Weight Bearing Status No During Gait Assistive Devices Assistive Device Gait Belt,Standard Walker Gait Deviations General Gait Pattern Antalgic,Decreased Stride Length,Step-to Gait Factors Limiting Gait Function Factors Limiting Gait Function Decreased Activity Tolerance, Decreased Strength,Difficulty Following Directions, Incoordination,Limited Range of Motion,Pain,Poor Balance Comments Gait Comments Pt NWB on RLE despite education regarding WBAT. RLE is plantarflexed PT-OP-J Posture/Palpation/Skin Start: 10/30/23 07:30 Freq: Status: Active Protocol: Document 10/30/23 09:03 NM (Rec: 10/30/23 09:54 NM [id number]) Posture Evaluation Position Standing Head/C-Spine Posture Forward Head L-Spine Posture Increased Lordosis Shoulder Posture (L) Rounded,(R) Rounded,(L) Forward,(R) Forward Pelvis Posture Anteriorly Tilted Weight Distribution Weight Shifted Left,Decreased Wt.Bear on (R) Hip Posture (L) Externally Rotated,(R) Externally Rotated Knee Posture (L) Genu Valgus,(R) Genu Valgus Patellar Posture (L) Superior,(R) Superior Ankle/Foot Posture (R) Plantarflexed Comments Posture Comments Demos strong L knee hyperextension Palpation Assessment Location R knee Palpation Findings Edema,Soft Tissue Tightness Palpation Details Increased edema entire RLE, especially near incision No tenderness along posterior calf to knee/thigh Tenderness along R knee Skin Assessment Circumference Measurement RLE Location ankle figure 8 : 54 cm Comments around patellar: 45 cm Incisional Assessment Incision Appearance/Comments Incision covered by bandage with 1 spot of blood. Otherwise, clean, dry and intact. No signs or symptoms of infection or DVT Other Assessments Skin Assessment Comments Bruising along shanna-lateral thigh, posterior calf PT-OP-K Range of Motion Start: 10/30/23 07:30 Freq: Status: Active Protocol: Document 10/30/23 09:03 NM (Rec: 10/30/23 09:54 NM [id number]) Knee Goniometric Range of Motion Knee Right Flexion Active (degrees) 50 Extension Active (degrees) 20 Comments empty end feel Left Flexion Active (degrees) 120 Hyper-Extension Active 5 PT-OP-M Strength Start: 10/30/23 07:30 Freq: Status: Active Protocol: Document 10/30/23 09:03 NM (Rec: 10/30/23 09:54 NM [id number]) Hip Strength Hip Manual Muscle Testing Right Flexion (L2) 3- Fair- Extension (S1) 3- Fair- Abduction 3- Fair- Adduction 3- Fair- Comments extension tested in standing Left Flexion (L2) 4- Good- Extension (S1) 4- Good- Abduction 4- Good- Adduction 4- Good- Comments extension tested in standing Knee Strength Knee Manual Muscle Testing Right Flexion (S2) 3 Fair Extension (L3) 1 Trace Left Flexion (S2) 4- Good- Extension (L3) 4- Good- Ankle/Foot Strength Ankle and Foot Manual Muscle Testing Right Dorsiflexion (L4) 3+ Fair+ Plantarflexion (S1) 4+ Good+ Left Dorsiflexion (L4) 4 Good Plantarflexion (S1) 4 Good Inversion 4 Good PT-OP-Q Treatments Start: 10/30/23 07:30 Freq: Status: Active Protocol: Document 11/17/23 16:16 TS (Rec: 11/17/23 16:23 TS [id number]) Therapeutic Exercises Supine Exercises knee extension stretch Supine Exercise Name gravity assisted Side right Equipment Used towel roll under ankle Reps/Minutes 30 Comments Feels good stretch. quad set Supine Exercise Name long sitting Side right Equipment Used small pillow under knee Reps/Minutes 5x3 Sitting Exercises march Side right Reps/Minutes 10 LAQ Side right Reps/Minutes 7 Comments Improved quad act. Leans back in sitting for compensation heel slides Sitting Exercise Name long sitting; AAROM (HEP review) Side right Equipment Used AAROM Reps/Minutes 5x5 hold Comments increased knee flexion. Self-Care/Home Management Treatment Education Other Education Educated pt on ice pack use at home and not heat at this time. Ice pack was applied to knee for 10mins due to burning pain in back of calf. Pt reported decreased pain. PT-OP-R Modalities Start: 11/02/23 09:29 Freq: Status: Active Protocol: Document 11/13/23 08:17 NM (Rec: 11/13/23 09:03 NM [id number]) Electric Stimulation Electric Stimulation Congolese Stimulation Body Location R quad Intensity 16.5 Frequency 50 bps Contraction Type Normal Patient Position Sitting Comments 8 minutes: 10/10 cycle w/ 0.5 sec ramp in long sitting and sitting off EOB. Foam roller under leg for support, performing quad set, LAQ, knee ext into ball. Monitored throughout for pain and assessing skin prior/after, improved quad activation PT-OP-T Assessment and Plan Start: 10/30/23 07:30 Freq: Status: Active Protocol: Document 11/17/23 16:16 TS (Rec: 11/17/23 16:23 TS [id number]) Physical Therapy Assessment Goals Six Impairment R knee flexion AROM lacking; currently 50 deg Short Term Goal (STG) Pt will improve R knee flexion to at least 90 deg in order to demonstrate improved ROM for stairs and gait 11/10/23: 89D AROM 11/13/23: 98 deg post manual and wall slides STG Duration 6 weeks Auto Striper Goal (LTG) Pt will improve R knee flexion to at least 115 deg in order to demonstrate improved ROM for stairs and gait LTG Duration 10 weeks Five Impairment stairs Short Term Goal (STG) Pt will be able to perform at least 10 step ups with RLE and 1 or fewer hand rail assist in order to demonstrate increased R knee ROM and strength STG Duration 6 weeks Group Home Goal (LTG) Pt will perform at least 12 stairs with reciprocal pattern and 1 or fewer hand rail assist in order to demonstrate improved BLE strength and R knee mobility to perform stairs up to apartment LTG Duration 12 weeks Four Impairment gait Short Term Goal (STG) Pt will ambulate without LRAD at least short community distances (500 ft) in order to demonstrate improved BLE strength and normalized gait mechanics, if appropriate STG Duration 6 weeks Group Home Goal (LTG) Pt will ambulate without LRAD with normalized gait mechanics at least 1000 ft in order to demonstrate improved BLE strength, if appropriate LTG Duration 12 weeks Three Impairment transfers Short Term Goal (STG) Pt will be able to transfer on /off bed IND in order to demonstrate improved strength and less caregiver burden 11/13/23: pt able to transfer on /off bed IND with minimal pain STG Duration 3 weeks MET Group Home Goal (LTG) Pt will be able to perform at least 10 STS with or without LRAD in order to demonstrate improved BLE strength for transfers and gait LTG Duration 12 weeks Two Impairment R knee strength Short Term Goal (STG) Pt will improve R knee flex/ ext strength to at least 4-/5 MMT in order to demonstrate increased strength for gait, transfers, and functional mobility STG Duration 8 weeks Auto Striper Goal (LTG) Pt will improve R knee flex/ ext strength to at least 4+/5 MMT in order to demonstrate increased strength for gait, transfers, and functional mobility LTG Duration 12 weeks One Impairment R knee AROM ext lacking 20 deg Short Term Goal (STG) Pt will improve R knee extension AROM to at least 10 deg in order to improve terminal extension for gait 11/13/23: lacking 10 deg ext post e-stim and manual tx STG Duration 4 weeks Group Home Goal (LTG) Pt will improve R knee extension AROM to at least 3 deg in order to improve terminal extension for gait LTG Duration 8 weeks Assessment Summary Assessment Pt has increased pain and burning in calf muscle this session. Demonstrates increased quad act with LAQ. She has 89D of AROM this session. Swelling has improved and has slight bruising around ankle. Educated pt on not using heat at this time to reduce swelling, recommended speaking to MD at 2 week follow up about use of heat. [ End ] Physical Therapy Plan Next Visit Focus/Plan Next Visit Plan e-stim quad for SAQ swelling management work STS, QS and SAQ > LAQ, knee ext into ball, wall slide or ball knee flex, knee flex and ext stretches, seated hip abduction, clams. STS, wall
--- NOTE | 2023-11-10 16:44 | PT.OTN ---
Current Diagnoses Unilateral primary osteoarthritis, right knee (11/10/23) Stiffness of right knee, not elsewhere classified (11/10/23) Other lack of coordination (11/10/23) Weakness (11/10/23) Physical Therapy Treatment Note PT-OP-A Visit Information Start: 10/30/23 07:30 Freq: Status: Active Protocol: Document 11/10/23 13:42 TS (Rec: 11/10/23 16:43 TS [id number]) Out-Patient Physical Therapy Visit Information Visit Information Visit Type Treatment Note Visit Note DOS: 10/27/23 R TKA Latex allergy Visit Start Time 13:45 Visit Stop Time 14:28 Visit Number 06/30 Number of ASSISTANT PROFESSOR OF MARINE BIOLOGY Visits 1 PT-OP-B Current Condition Start: 10/30/23 07:30 Freq: Status: Active Protocol: Document 10/30/23 09:03 NM (Rec: 10/30/23 09:54 NM [id number]) Current Condition History of Current Condition Onset Date DOS 10/27/23 Current Complaints pain, limited ROM and mobility History of Current Condition Pt present s/p R TKA from Dr. Abe Cordova on 10/26, [facility]. She presents with w /c, standard walker. She went to ED yesterday due to pain, she did not have her medication (oxycodone). Pt states that she had severe degeneration of her R knee, no specific AL. 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 States that she thinks she tore something in her L knee due to pain; severely hyperextends her L knee. She did not use an AD prior to surgery but had limited mobility. She is using standard walker at home, working on WB status. She is doing toe circles, ankle pumps, toe wiggles following discharge from hospital. She live with and her mom in an apartment. Pt lives in a home with an elevator, has stairs (lives on 3rd floor). Has a w/c, shower chair, FWW. Her leg is wrapped with soraya bandage, pt states has removed soraya bandage. Wearing 1 sandal . Pt is icing and elevating. Treatment Goals Patient/Caregiver Goals wants to be able to kneel, stairs PT-OP-C Subjective Start: 10/30/23 07:30 Freq: Status: Active Protocol: Document 11/10/23 13:42 TS (Rec: 11/10/23 16:43 TS [id number]) OP-PT Subjective Patient Comments Patient Comments Pt reports using heat on knee for pain. She has been doing her HEP and has been ambulating out in the community. Bruising on leg is mostly gone. PT-OP-F Manual Assessment Start: 10/30/23 07:30 Freq: Status: Active Protocol: Document 10/30/23 09:03 NM (Rec: 10/30/23 17:12 NM [id number]) Manual Assessments Soft Tissue Assessment Soft Tissue Mobility Assessment Increased edema along entire RLE. Decreased R heel cord length Joint Mobility Assessment Joint Mobility Assessment Decreased AROM/PROM R knee with empty end feel PT-OP-G Mobility & Gait Start: 10/30/23 07:30 Freq: Status: Active Protocol: Document 10/30/23 09:03 NM (Rec: 10/30/23 17:12 NM [id number]) OP Mobility Evaluation Bed Mobility Rolling min A to assist with RLE Supine to and from Sit min A to assist with RLE to EOB Transfers Sit to Stand CGA to steady to standard walker, RLE in front and pt NWB OP Gait Assessment Gait Gait Assistance Required: Contact Guard Assist Distance (Feet) 20 Able to Maintain Weight Bearing Status No During Gait Assistive Devices Assistive Device Gait Belt,Standard Walker Gait Deviations General Gait Pattern Antalgic,Decreased Stride Length,Step-to Gait Factors Limiting Gait Function Factors Limiting Gait Function Decreased Activity Tolerance, Decreased Strength,Difficulty Following Directions, Incoordination,Limited Range of Motion,Pain,Poor Balance Comments Gait Comments Pt NWB on RLE despite education regarding WBAT. RLE is plantarflexed PT-OP-J Posture/Palpation/Skin Start: 10/30/23 07:30 Freq: Status: Active Protocol: Document 10/30/23 09:03 NM (Rec: 10/30/23 09:54 NM [id number]) Posture Evaluation Position Standing Head/C-Spine Posture Forward Head L-Spine Posture Increased Lordosis Shoulder Posture (L) Rounded,(R) Rounded,(L) Forward,(R) Forward Pelvis Posture Anteriorly Tilted Weight Distribution Weight Shifted Left,Decreased Wt.Bear on (R) Hip Posture (L) Externally Rotated,(R) Externally Rotated Knee Posture (L) Genu Valgus,(R) Genu Valgus Patellar Posture (L) Superior,(R) Superior Ankle/Foot Posture (R) Plantarflexed Comments Posture Comments Demos strong L knee hyperextension Palpation Assessment Location R knee Palpation Findings Edema,Soft Tissue Tightness Palpation Details Increased edema entire RLE, especially near incision No tenderness along posterior calf to knee/thigh Tenderness along R knee Skin Assessment Circumference Measurement RLE Location ankle figure 8 : 54 cm Comments around patellar: 45 cm Incisional Assessment Incision Appearance/Comments Incision covered by bandage with 1 spot of blood. Otherwise, clean, dry and intact. No signs or symptoms of infection or DVT Other Assessments Skin Assessment Comments Bruising along shanna-lateral thigh, posterior calf PT-OP-K Range of Motion Start: 10/30/23 07:30 Freq: Status: Active Protocol: Document 10/30/23 09:03 NM (Rec: 10/30/23 09:54 NM [id number]) Knee Goniometric Range of Motion Knee Right Flexion Active (degrees) 50 Extension Active (degrees) 20 Comments empty end feel Left Flexion Active (degrees) 120 Hyper-Extension Active 5 PT-OP-M Strength Start: 10/30/23 07:30 Freq: Status: Active Protocol: Document 10/30/23 09:03 NM (Rec: 10/30/23 09:54 NM [id number]) Hip Strength Hip Manual Muscle Testing Right Flexion (L2) 3- Fair- Extension (S1) 3- Fair- Abduction 3- Fair- Adduction 3- Fair- Comments extension tested in standing Left Flexion (L2) 4- Good- Extension (S1) 4- Good- Abduction 4- Good- Adduction 4- Good- Comments extension tested in standing Knee Strength Knee Manual Muscle Testing Right Flexion (S2) 3 Fair Extension (L3) 1 Trace Left Flexion (S2) 4- Good- Extension (L3) 4- Good- Ankle/Foot Strength Ankle and Foot Manual Muscle Testing Right Dorsiflexion (L4) 3+ Fair+ Plantarflexion (S1) 4+ Good+ Left Dorsiflexion (L4) 4 Good Plantarflexion (S1) 4 Good Inversion 4 Good PT-OP-Q Treatments Start: 10/30/23 07:30 Freq: Status: Active Protocol: Document 11/10/23 13:42 TS (Rec: 11/10/23 16:43 TS [id number]) Therapeutic Exercises Supine Exercises knee extension stretch Supine Exercise Name gravity assisted Side right Equipment Used towel roll under ankle Reps/Minutes 30 Comments Feels good stretch. quad set Supine Exercise Name long sitting Side right Equipment Used small pillow under knee Reps/Minutes 5x3 Sitting Exercises march Side right Reps/Minutes 10 LAQ Side right Reps/Minutes 7 Comments Improved quad act. Leans back in sitting for compensation heel slides Sitting Exercise Name long sitting; AAROM (HEP review) Side right Equipment Used AAROM Reps/Minutes 5x5 hold Comments increased knee flexion. Self-Care/Home Management Treatment Education Other Education Educated pt on ice pack use at home and not heat at this time. Ice pack was applied to knee for 10mins due to burning pain in back of calf. Pt reported decreased pain. PT-OP-R Modalities Start: 11/02/23 09:29 Freq: Status: Active Protocol: Document 11/06/23 11:17 NM (Rec: 11/06/23 12:28 NM [id number]) Hot Pack/Cold Pack Treatment Cold Pack Location R knee Patient Position Hooklying Patient Tolerance Good Comments skin PT-OP-T Assessment and Plan Start: 10/30/23 07:30 Freq: Status: Active Protocol: Document 11/10/23 13:42 TS (Rec: 11/10/23 16:43 TS [id number]) Physical Therapy Assessment Goals Six Impairment R knee flexion AROM lacking; currenlty 50 deg Short Term Goal (STG) Pt will improve R knee flexion to at least 90 deg in order to demonstrate improved ROM for stairs and gait 11/10/23: 89D AROM STG Duration 6 weeks Penitentiary Goal (LTG) Pt will improve R knee flexion to at least 115 deg in order to demonstrate improved ROM for stairs and gait LTG Duration 10 weeks Five Impairment stairs Short Term Goal (STG) Pt will be able to perform at least 10 step ups with RLE and 1 or fewer hand rail assist in order to demonstrate increased R knee ROM and strength STG Duration 6 weeks Penitentiary Goal (LTG) Pt will perform at least 12 stairs with reciprocal pattern and 1 or fewer hand rail assist in order to demonstrate improved BLE strength and R knee mobility to perform stairs up to apartment LTG Duration 12 weeks Four Impairment gait Short Term Goal (STG) Pt will ambulate without LRAD at least short community distances (500 ft) in order to demonstrate improved BLE strength and normalized gait mechanics, if appropriate STG Duration 6 weeks Penitentiary Goal (LTG) Pt will ambulate without LRAD with normalized gait mechanics at least 1000 ft in order to demonstrate improved BLE strength, if appropriate LTG Duration 12 weeks Three Impairment transfers Short Term Goal (STG) Pt will be able to transfer on /off bed IND in order to demonstrate improved strength and less caregiver burden STG Duration 3 weeks Penitentiary Goal (LTG) Pt will be able to perform at least 10 STS with or without LRAD in order to demonstrate improved BLE strength for transfers and gait LTG Duration 12 weeks Two Impairment R knee strength Short Term Goal (STG) Pt will improve R knee flex/ ext strength to at least 4-/5 MMT in order to demonstrate increased strength for gait, transfers, and functional mobility STG Duration 8 weeks Manager Search Goal (LTG) Pt will improve R knee flex/ ext strength to at least 4+/5 MMT in order to demonstrate increased strength for gait, transfers, and functional mobility LTG Duration 12 weeks One Impairment R knee AROM ext lacking 20 deg Short Term Goal (STG) Pt will improve R knee extension AROM to at least 10 deg in order to improve terminal extension for gait STG Duration 4 weeks Manager Search Goal (LTG) Pt will improve R knee extension AROM to at least 3 deg in order to improve terminal extension for gait LTG Duration 8 weeks Assessment Summary Assessment Pt has increased pain and burning in calf muscle this session. Demonstrates increased quad act with LAQ. She has 89D of AROM this session. Swelling has improved and has slight bruising around ankle. Educated pt on not using heat at this time to reduce swelling, recommended speaking to MD at 2 week follow up about use of heat. Physical Therapy Plan Next Visit Focus/Plan Next Note Type Treatment Note Next Visit Plan e-stim quad for SAQ swelling management work STS, QS and SAQ > LAQ, knee ext into ball, wall slide or ball knee flex, knee flex and ext stretches, seated hip abduction, clams. STS, wall slides. Gait to promote WBAT, step through
--- NOTE | 2023-11-13 13:29 | PT.OTN ---
Current Diagnoses Unilateral primary osteoarthritis, right knee (11/13/23) Stiffness of right knee, not elsewhere classified (11/13/23) Other lack of coordination (11/13/23) Weakness (11/13/23) Physical Therapy Treatment Note PT-OP-A Visit Information Start: 10/30/23 07:30 Freq: Status: Active Protocol: Document 11/13/23 08:17 NM (Rec: 11/13/23 09:03 NM [id number]) Out-Patient Physical Therapy Visit Information Visit Information Visit Type Treatment Note Visit Note DOS: 10/27/23 R TKA Latex allergy Visit Start Time 08:18 Visit Stop Time 09:00 Visit Number 07/30 Number of HOSPICE SOCIAL WORKER Visits 0 Evaluation Information Evaluation Date 10/30/23 Precautions Precautions latex allergy R TKA DOS 10/27/23 PT-OP-B Current Condition Start: 10/30/23 07:30 Freq: Status: Active Protocol: Document 10/30/23 09:03 NM (Rec: 10/30/23 09:54 NM [id number]) Current Condition History of Current Condition Onset Date DOS 10/27/23 Current Complaints pain, limited ROM and mobility History of Current Condition Pt present s/p R TKA from Dr. Abe Cordova on 10/26, [facility]. She presents with w /c, standard walker. She went to ED yesterday due to pain, she did not have her medication (oxycodone). Pt states that she had severe degeneration of her R knee, no specific AL. 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 States that she thinks she tore something in her L knee due to pain; severely hyperextends her L knee. She did not use an AD prior to surgery but had limited mobility. She is using standard walker at home, working on WB status. She is doing toe circles, ankle pumps, toe wiggles following discharge from hospital. She live with and her mom in an apartment. Pt lives in a home with an elevator, has stairs (lives on 3rd floor). Has a w/c, shower chair, FWW. Her leg is wrapped with soraya bandage, pt states has removed soraya bandage. Wearing 1 sandal . Pt is icing and elevating. Treatment Goals Patient/Caregiver Goals wants to be able to kneel, stairs PT-OP-C Subjective Start: 10/30/23 07:30 Freq: Status: Active Protocol: Document 11/13/23 08:17 NM (Rec: 11/13/23 09:03 NM [id number]) OP-PT Subjective Patient Comments Patient Comments Pt reports 6/10 R knee pain today. Saw surgeon yesterday, reports that MD is happy and can remove bandage next week. Pt's swelling is lessened. Reports compliance with HEP 2- 3x/day. States has been trying to FWW, states gets up once every two hours. Feels like walking better but still slow and limited. Tries not to overdo it. Pt states MD said can use heat as desired on scar as long as feels good and does not cause pain. PT-OP-F Manual Assessment Start: 10/30/23 07:30 Freq: Status: Active Protocol: Document 10/30/23 09:03 NM (Rec: 10/30/23 17:12 NM [id number]) Manual Assessments Soft Tissue Assessment Soft Tissue Mobility Assessment Increased edema along entire RLE. Decreased R heel cord length Joint Mobility Assessment Joint Mobility Assessment Decreased AROM/PROM R knee with empty end feel PT-OP-G Mobility & Gait Start: 10/30/23 07:30 Freq: Status: Active Protocol: Document 10/30/23 09:03 NM (Rec: 10/30/23 17:12 NM [id number]) OP Mobility Evaluation Bed Mobility Rolling min A to assist with RLE Supine to and from Sit min A to assist with RLE to EOB Transfers Sit to Stand CGA to steady to standard walker, RLE in front and pt NWB OP Gait Assessment Gait Gait Assistance Required: Contact Guard Assist Distance (Feet) 20 Able to Maintain Weight Bearing Status No During Gait Assistive Devices Assistive Device Gait Belt,Standard Walker Gait Deviations General Gait Pattern Antalgic,Decreased Stride Length,Step-to Gait Factors Limiting Gait Function Factors Limiting Gait Function Decreased Activity Tolerance, Decreased Strength,Difficulty Following Directions, Incoordination,Limited Range of Motion,Pain,Poor Balance Comments Gait Comments Pt NWB on RLE despite education regarding WBAT. RLE is plantarflexed PT-OP-J Posture/Palpation/Skin Start: 10/30/23 07:30 Freq: Status: Active Protocol: Document 10/30/23 09:03 NM (Rec: 10/30/23 09:54 NM [id number]) Posture Evaluation Position Standing Head/C-Spine Posture Forward Head L-Spine Posture Increased Lordosis Shoulder Posture (L) Rounded,(R) Rounded,(L) Forward,(R) Forward Pelvis Posture Anteriorly Tilted Weight Distribution Weight Shifted Left,Decreased Wt.Bear on (R) Hip Posture (L) Externally Rotated,(R) Externally Rotated Knee Posture (L) Genu Valgus,(R) Genu Valgus Patellar Posture (L) Superior,(R) Superior Ankle/Foot Posture (R) Plantarflexed Comments Posture Comments Demos strong L knee hyperextension Palpation Assessment Location R knee Palpation Findings Edema,Soft Tissue Tightness Palpation Details Increased edema entire RLE, especially near incision No tenderness along posterior calf to knee/thigh Tenderness along R knee Skin Assessment Circumference Measurement RLE Location ankle figure 8 : 54 cm Comments around patellar: 45 cm Incisional Assessment Incision Appearance/Comments Incision covered by bandage with 1 spot of blood. Otherwise, clean, dry and intact. No signs or symptoms of infection or DVT Other Assessments Skin Assessment Comments Bruising along shanna-lateral thigh, posterior calf PT-OP-K Range of Motion Start: 10/30/23 07:30 Freq: Status: Active Protocol: Document 10/30/23 09:03 NM (Rec: 10/30/23 09:54 NM [id number]) Knee Goniometric Range of Motion Knee Right Flexion Active (degrees) 50 Extension Active (degrees) 20 Comments empty end feel Left Flexion Active (degrees) 120 Hyper-Extension Active 5 PT-OP-M Strength Start: 10/30/23 07:30 Freq: Status: Active Protocol: Document 10/30/23 09:03 NM (Rec: 10/30/23 09:54 NM [id number]) Hip Strength Hip Manual Muscle Testing Right Flexion (L2) 3- Fair- Extension (S1) 3- Fair- Abduction 3- Fair- Adduction 3- Fair- Comments extension tested in standing Left Flexion (L2) 4- Good- Extension (S1) 4- Good- Abduction 4- Good- Adduction 4- Good- Comments extension tested in standing Knee Strength Knee Manual Muscle Testing Right Flexion (S2) 3 Fair Extension (L3) 1 Trace Left Flexion (S2) 4- Good- Extension (L3) 4- Good- Ankle/Foot Strength Ankle and Foot Manual Muscle Testing Right Dorsiflexion (L4) 3+ Fair+ Plantarflexion (S1) 4+ Good+ Left Dorsiflexion (L4) 4 Good Plantarflexion (S1) 4 Good Inversion 4 Good PT-OP-Q Treatments Start: 10/30/23 07:30 Freq: Status: Active Protocol: Document 11/13/23 08:17 NM (Rec: 11/13/23 09:03 NM [id number]) Therapeutic Exercises Supine Exercises bridge Supine Exercise Name HEP Side bilateral Equipment Used arms across chest Reps/Minutes 2x10x2 Comments RLe slightly further for pain mgmt; cued strong glute squeeze wall slide Supine Exercise Name for knee flexion: 1. sustained stretch, 2. heel slides Side right Reps/Minutes 1. 4 min, 2. 10x2 Comments pre- 92 deg; 98 deg post knee flexion Side bilateral Equipment Used orange sao tomean ball Reps/Minutes 20 ea Comments cued use RLE more than L quad set Supine Exercise Name during e-stim Side right Equipment Used 1/2 foam roller under knee Reps/Minutes 3 min Comments no heel elevation Sitting Exercises knee extension Sitting Exercise Name during e-stim Side right Equipment Used foot pressing into blue sao tomean ball for TKE Reps/Minutes 2 min LAQ Sitting Exercise Name during e-stim Side right Reps/Minutes 3 min Comments less trunk comp, still lacking TKE knee extension stretch Sitting Exercise Name gravity assisted (HEP review) Side right Equipment Used on 1/2 foam roller Reps/Minutes 2x60 Manual Therapy Treatment Consent Patient gave verbal consent for manual Yes treatment Soft Tissue Mobilization R knee Body Location swelling management, HS, quad, calf Mobilization Type Rolling Intensity/Depth Superficial Body Position Hooklying Comments Superficial distal > proximal from ankle to thigh to swelling management. Increased restrictions of HS, hip flexors. Tenderness at posterior knee and distal hamstring Other Other Manual Treatments Bruising noted along posterior heel in strap-like position, dark red/purple. Bruising also noted along R lateral malleolus, deep purple-red. Pt states that she bumped it on her wheelchair PT-OP-R Modalities Start: 11/02/23 09:29 Freq: Status: Active Protocol: Document 11/13/23 08:17 NM (Rec: 11/13/23 09:03 NM [id number]) Electric Stimulation Electric Stimulation Icelandic Stimulation Body Location R quad Intensity 16.5 Frequency 50 bps Contraction Type Normal Patient Position Sitting Comments 8 minutes: 10/10 cycle w/ 0.5 sec ramp in long sitting and sitting off EOB. Foam roller under leg for support, performing quad set, LAQ, knee ext into ball. Monitored throughout for pain and assessing skin prior/after, improved quad activation PT-OP-T Assessment and Plan Start: 10/30/23 07:30 Freq: Status: Active Protocol: Document 11/13/23 08:17 NM (Rec: 11/13/23 09:03 NM [id number]) Physical Therapy Assessment Goals Six Impairment R knee flexion AROM lacking; currently 50 deg Short Term Goal (STG) Pt will improve R knee flexion to at least 90 deg in order to demonstrate improved ROM for stairs and gait 11/10/23: 89D AROM 11/13/23: 98 deg post manual and wall slides STG Duration 6 weeks Skilled Nursing Goal (LTG) Pt will improve R knee flexion to at least 115 deg in order to demonstrate improved ROM for stairs and gait LTG Duration 10 weeks Five Impairment stairs Short Term Goal (STG) Pt will be able to perform at least 10 step ups with RLE and 1 or fewer hand rail assist in order to demonstrate increased R knee ROM and strength STG Duration 6 weeks Sewer Pipe Layer Helper Goal (LTG) Pt will perform at least 12 stairs with reciprocal pattern and 1 or fewer hand rail assist in order to demonstrate improved BLE strength and R knee mobility to perform stairs up to apartment LTG Duration 12 weeks Four Impairment gait Short Term Goal (STG) Pt will ambulate without LRAD at least short community distances (500 ft) in order to demonstrate improved BLE strength and normalized gait mechanics, if appropriate STG Duration 6 weeks Sewer Pipe Layer Helper Goal (LTG) Pt will ambulate without LRAD with normalized gait mechanics at least 1000 ft in order to demonstrate improved BLE strength, if appropriate LTG Duration 12 weeks Three Impairment transfers Short Term Goal (STG) Pt will be able to transfer on /off bed IND in order to demonstrate improved strength and less caregiver burden 11/13/23: pt able to transfer on /off bed IND with minimal pain STG Duration 3 weeks MET Skilled Nursing Goal (LTG) Pt will be able to perform at least 10 STS with or without LRAD in order to demonstrate improved BLE strength for transfers and gait LTG Duration 12 weeks Two Impairment R knee strength Short Term Goal (STG) Pt will improve R knee flex/ ext strength to at least 4-/5 MMT in order to demonstrate increased strength for gait, transfers, and functional mobility STG Duration 8 weeks Sewer Pipe Layer Helper Goal (LTG) Pt will improve R knee flex/ ext strength to at least 4+/5 MMT in order to demonstrate increased strength for gait, transfers, and functional mobility LTG Duration 12 weeks One Impairment R knee AROM ext lacking 20 deg Short Term Goal (STG) Pt will improve R knee extension AROM to at least 10 deg in order to improve terminal extension for gait 11/13/23: lacking 10 deg ext post e-stim and manual tx STG Duration 4 weeks Sewer Pipe Layer Helper Goal (LTG) Pt will improve R knee extension AROM to at least 3 deg in order to improve terminal extension for gait LTG Duration 8 weeks Assessment Summary Assessment Pt tolerated session well. Currently 2 weeks post op. Pt has 98 deg R knee flexion at end of session, limited by swelling, pain, and girth of lower calf muscle. Progressed to wall slides to improve R knee flexion AROM; cues required to prevent pt from remaining within comfortable knee flexion ROM. Pt progressed to bridge. Educated to avoid maintaining hip ER positioning in sitting and supine for sustained periods. Demos better quad activation today with LAQ, knee ext, but lacking 10 deg of terminal knee extension. Continued with Icelandic e-stim to improve quad activation. PT educated on ambulating with FWW at home for safety since she reports her balance feels off and to ambulate several times per hour to help with swelling and stiffness management. Pt would benefit from skilled PT for R knee flexibility and strengthening to improve functional mobility and transfers. Physical Therapy Plan Frequency and Duration Frequency of Treatment 1-2x/wk Duration of treatment (weeks) 12 Plan of Care Start Date 10/30/23 Plan of Care End Date 01/22/24 Therapeutic Interventions Therapeutic Interventions Balance Training,Gait Training ,Home Exercise Program,Joint Mobilizations,Lymphedema Management,Manual Therapy, Neuromuscular Re-education, Orthotic/Prosthetic Management ,Patient/Caregiver Education, Self-Care/Home Management, Sensory Integration,Soft Tissue Mobilization, Therapeutic Activities, Therapeutic Exercises Modalities Cold Pack/Ice Massage,Electric Stimulation,Hot Packs, Ultrasound Next Visit Focus/Plan Next Note Type Treatment Note Next Visit Plan Practice gait with 4WW if pt brings next session. e-stim quad for LAQ, knee ext. STS from elevated surface to FWW, SAQ > LAQ, wall slides and knee flex on ball, knee ext into ball, knee flex and ext stretches, seated hip abduction, lateral stepping without resistance but with hand support. swelling management and STM to HS/quad, TFL Normalize gait with FWW or 4WW
--- NOTE | 2023-11-20 12:23 | PT.OTN ---
Current Diagnoses Unilateral primary osteoarthritis, right knee (11/20/23) Stiffness of right knee, not elsewhere classified (11/20/23) Other lack of coordination (11/20/23) Weakness (11/20/23) Physical Therapy Treatment Note PT-OP-A Visit Information Start: 10/30/23 07:30 Freq: Status: Active Protocol: Document 11/20/23 11:23 NM (Rec: 11/20/23 12:22 NM [id number]) Out-Patient Physical Therapy Visit Information Visit Information Visit Type Treatment Note Visit Note DOS: 10/27/23 R TKA Latex allergy Visit Start Time 11:24 Visit Stop Time 12:04 Visit Number 08/30 Evaluation Information Evaluation Date 10/30/23 Precautions Precautions latex allergy R TKA DOS 10/27/23 PT-OP-B Current Condition Start: 10/30/23 07:30 Freq: Status: Active Protocol: Document 10/30/23 09:03 NM (Rec: 10/30/23 09:54 NM [id number]) Current Condition History of Current Condition Onset Date DOS 10/27/23 Current Complaints pain, limited ROM and mobility History of Current Condition Pt present s/p R TKA from Dr. Abe Cordova on 10/26, [facility]. She presents with w /c, standard walker. She went to ED yesterday due to pain, she did not have her medication (oxycodone). Pt states that she had severe degeneration of her R knee, no specific AL. 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 States that she thinks she tore something in her L knee due to pain; severely hyperextends her L knee. She did not use an AD prior to surgery but had limited mobility. She is using standard walker at home, working on WB status. She is doing toe circles, ankle pumps, toe wiggles following discharge from hospital. She live with and her mom in an apartment. Pt lives in a home with an elevator, has stairs (lives on 3rd floor). Has a w/c, shower chair, FWW. Her leg is wrapped with soraya bandage, pt states has removed soraya bandage. Wearing 1 sandal . Pt is icing and elevating. Treatment Goals Patient/Caregiver Goals wants to be able to kneel, stairs PT-OP-C Subjective Start: 10/30/23 07:30 Freq: Status: Active Protocol: Document 11/20/23 11:23 NM (Rec: 11/20/23 12:22 NM [id number]) OP-PT Subjective Patient Comments Patient Comments Pt reports doing better but was sick earlier this week. She presents with FWW. Has been trying to walk around home without help or AD. Pt reports that she went the ER the other night, had electricity from R hip to to the knee, got meds filled; also has sciatic issues; states resolved. Reports compliance with HEP. Cat also jumped on her RLE yesterday, landing at top of scar; now has a red guy at the tip of her scar. PT-OP-F Manual Assessment Start: 10/30/23 07:30 Freq: Status: Active Protocol: Document 10/30/23 09:03 NM (Rec: 10/30/23 17:12 NM [id number]) Manual Assessments Soft Tissue Assessment Soft Tissue Mobility Assessment Increased edema along entire RLE. Decreased R heel cord length Joint Mobility Assessment Joint Mobility Assessment Decreased AROM/PROM R knee with empty end feel PT-OP-G Mobility & Gait Start: 10/30/23 07:30 Freq: Status: Active Protocol: Document 10/30/23 09:03 NM (Rec: 10/30/23 17:12 NM [id number]) OP Mobility Evaluation Bed Mobility Rolling min A to assist with RLE Supine to and from Sit min A to assist with RLE to EOB Transfers Sit to Stand CGA to steady to standard walker, RLE in front and pt NWB OP Gait Assessment Gait Gait Assistance Required: Contact Guard Assist Distance (Feet) 20 Able to Maintain Weight Bearing Status No During Gait Assistive Devices Assistive Device Gait Belt,Standard Walker Gait Deviations General Gait Pattern Antalgic,Decreased Stride Length,Step-to Gait Factors Limiting Gait Function Factors Limiting Gait Function Decreased Activity Tolerance, Decreased Strength,Difficulty Following Directions, Incoordination,Limited Range of Motion,Pain,Poor Balance Comments Gait Comments Pt NWB on RLE despite education regarding WBAT. RLE is plantarflexed PT-OP-J Posture/Palpation/Skin Start: 10/30/23 07:30 Freq: Status: Active Protocol: Document 10/30/23 09:03 NM (Rec: 10/30/23 09:54 NM [id number]) Posture Evaluation Position Standing Head/C-Spine Posture Forward Head L-Spine Posture Increased Lordosis Shoulder Posture (L) Rounded,(R) Rounded,(L) Forward,(R) Forward Pelvis Posture Anteriorly Tilted Weight Distribution Weight Shifted Left,Decreased Wt.Bear on (R) Hip Posture (L) Externally Rotated,(R) Externally Rotated Knee Posture (L) Genu Valgus,(R) Genu Valgus Patellar Posture (L) Superior,(R) Superior Ankle/Foot Posture (R) Plantarflexed Comments Posture Comments Demos strong L knee hyperextension Palpation Assessment Location R knee Palpation Findings Edema,Soft Tissue Tightness Palpation Details Increased edema entire RLE, especially near incision No tenderness along posterior calf to knee/thigh Tenderness along R knee Skin Assessment Circumference Measurement RLE Location ankle figure 8 : 54 cm Comments around patellar: 45 cm Incisional Assessment Incision Appearance/Comments Incision covered by bandage with 1 spot of blood. Otherwise, clean, dry and intact. No signs or symptoms of infection or DVT Other Assessments Skin Assessment Comments Bruising along shanna-lateral thigh, posterior calf PT-OP-K Range of Motion Start: 10/30/23 07:30 Freq: Status: Active Protocol: Document 10/30/23 09:03 NM (Rec: 10/30/23 09:54 NM [id number]) Knee Goniometric Range of Motion Knee Right Flexion Active (degrees) 50 Extension Active (degrees) 20 Comments empty end feel Left Flexion Active (degrees) 120 Hyper-Extension Active 5 PT-OP-M Strength Start: 10/30/23 07:30 Freq: Status: Active Protocol: Document 10/30/23 09:03 NM (Rec: 10/30/23 09:54 NM [id number]) Hip Strength Hip Manual Muscle Testing Right Flexion (L2) 3- Fair- Extension (S1) 3- Fair- Abduction 3- Fair- Adduction 3- Fair- Comments extension tested in standing Left Flexion (L2) 4- Good- Extension (S1) 4- Good- Abduction 4- Good- Adduction 4- Good- Comments extension tested in standing Knee Strength Knee Manual Muscle Testing Right Flexion (S2) 3 Fair Extension (L3) 1 Trace Left Flexion (S2) 4- Good- Extension (L3) 4- Good- Ankle/Foot Strength Ankle and Foot Manual Muscle Testing Right Dorsiflexion (L4) 3+ Fair+ Plantarflexion (S1) 4+ Good+ Left Dorsiflexion (L4) 4 Good Plantarflexion (S1) 4 Good Inversion 4 Good PT-OP-Q Treatments Start: 10/30/23 07:30 Freq: Status: Active Protocol: Document 11/20/23 11:23 NM (Rec: 11/20/23 12:22 NM [id number]) Therapeutic Exercises Supine Exercises knee flexion Side bilateral Equipment Used orange portuguese ball Reps/Minutes 20 ea Comments cued use RLE more than L knee extension stretch Supine Exercise Name gravity assisted Side right Equipment Used 4 block under ankle/calf Reps/Minutes 2 min Sitting Exercises STS Sitting Exercise Name HEP Side bilateral Equipment Used standard chair, arms in front for ant weight shift Reps/Minutes 2x5 Comments better w/ fwd reach, but still momentum; cued TKE, slow lower LAQ Side right Reps/Minutes 15x3 hold Comments pt tapping for facilitation; improved quad act, still lack TKE Standing Exercises side steps Side bilateral Resistance AROM Equipment Used B hand support on rail Reps/Minutes 10 ft ea direction Comments mild pain in R stance, cued TKE minisquats Side bilateral Equipment Used standard chair behind pt Reps/Minutes 15 TKE Standing Exercise Name HEP Side right Resistance level 3 band at knee-latex free Equipment Used PT holding band Reps/Minutes 15x3 hold Comments cued limit trunk motion, hip ext; improved quad set Gait Training Gait Activity spc Device Used spc Level of Assistance close SBA Surface stable Distance/Duration 8 minutes Treatment Focus sequencing, WB, stance TKE, positioning, balance Comments Education and rationale for placement in L hand, sequencing. Pt performing various distances around clinic. Cueing for TKE, heel strike, knee/hip flex during swing, and upright posture. Improved sequecing with reps. Performed also with STS transfer from standard chair. IND at end of session Manual Therapy Treatment Consent Patient gave verbal consent for manual Yes treatment Soft Tissue Mobilization R knee Body Location swelling management, HS, quad, calf Mobilization Type Rolling Intensity/Depth Superficial Body Position Hooklying Comments Superficial distal > proximal from ankle to thigh to swelling management. Still exhibits a lot of swelling at her thigh compared to the rest of her leg. Increased restrictions of HS, quad. Tenderness at posterior knee and distal hamstring, reduced with mobilization 100 deg (pre) > 102 deg post, 11 deg > 10 deg Joint Mobilizations R knee Joint patellar, tibiofemoral Direction sup/inf, PA and AP Grade II Body Position Hooklying Reps/Duration 10 ea Comments Monitored for pain. Post soft tissue mobilization to improve joint mobility. Limited patellar motion and small tibiofemoral motion too. Monitored for pain Neuro Re-Education Treatment Balance Activities SLS Details for time Comments LLE: 10 sec RLE: 2 sec before LOB Self-Care/Home Management Treatment Education Patient Education Fall Risk,Joint Protection, Pain Management Other Education Educated on continued use of AD at home, recommended spc use over discarding AD since 4ww does not fit well throughout home. Recommended compression hose from sock to thigh on RLE to decrease swelling PT-OP-R Modalities Start: 11/02/23 09:29 Freq: Status: Active Protocol: Document 11/13/23 08:17 NM (Rec: 11/13/23 09:03 NM [id number]) Electric Stimulation Electric Stimulation Thai Stimulation Body Location R quad Intensity 16.5 Frequency 50 bps Contraction Type Normal Patient Position Sitting Comments 8 minutes: 10/10 cycle w/ 0.5 sec ramp in long sitting and sitting off EOB. Foam roller under leg for support, performing quad set, LAQ, knee ext into ball. Monitored throughout for pain and assessing skin prior/after, improved quad activation PT-OP-T Assessment and Plan Start: 10/30/23 07:30 Freq: Status: Active Protocol: Document 11/20/23 11:23 NM (Rec: 11/20/23 12:22 NM [id number]) Physical Therapy Assessment Goals Six Impairment R knee flexion AROM lacking; currently 50 deg Short Term Goal (STG) Pt will improve R knee flexion to at least 90 deg in order to demonstrate improved ROM for stairs and gait 11/10/23: 89D AROM 11/13/23: 98 deg post manual and wall slides 11/20/23: 100 deg prior to manual treatment STG Duration 6 weeks MET Correction Goal (LTG) Pt will improve R knee flexion to at least 115 deg in order to demonstrate improved ROM for stairs and gait LTG Duration 10 weeks Five Impairment stairs Short Term Goal (STG) Pt will be able to perform at least 10 step ups with RLE and 1 or fewer hand rail assist in order to demonstrate increased R knee ROM and strength STG Duration 6 weeks Correction Goal (LTG) Pt will perform at least 12 stairs with reciprocal pattern and 1 or fewer hand rail assist in order to demonstrate improved BLE strength and R knee mobility to perform stairs up to apartment LTG Duration 12 weeks Four Impairment gait Short Term Goal (STG) Pt will ambulate without LRAD at least short community distances (500 ft) in order to demonstrate improved BLE strength and normalized gait mechanics, if appropriate STG Duration 6 weeks Slot Machine Key Person Goal (LTG) Pt will ambulate without LRAD with normalized gait mechanics at least 1000 ft in order to demonstrate improved BLE strength, if appropriate LTG Duration 12 weeks Three Impairment transfers Short Term Goal (STG) Pt will be able to transfer on /off bed IND in order to demonstrate improved strength and less caregiver burden 11/13/23: pt able to transfer on /off bed IND with minimal pain STG Duration 3 weeks MET Correction Goal (LTG) Pt will be able to perform at least 10 STS with or without LRAD in order to demonstrate improved BLE strength for transfers and gait LTG Duration 12 weeks Two Impairment R knee strength Short Term Goal (STG) Pt will improve R knee flex/ ext strength to at least 4-/5 MMT in order to demonstrate increased strength for gait, transfers, and functional mobility STG Duration 8 weeks Correction Goal (LTG) Pt will improve R knee flex/ ext strength to at least 4+/5 MMT in order to demonstrate increased strength for gait, transfers, and functional mobility LTG Duration 12 weeks One Impairment R knee AROM ext lacking 20 deg Short Term Goal (STG) Pt will improve R knee extension AROM to at least 10 deg in order to improve terminal extension for gait 11/13/23: lacking 10 deg ext post e-stim and manual tx STG Duration 4 weeks Slot Machine Key Person Goal (LTG) Pt will improve R knee extension AROM to at least 3 deg in order to improve terminal extension for gait LTG Duration 8 weeks Assessment Summary Assessment Pt tolerated session well, demonstrates improved quad activation. Pt progressed to standing TKE with band to facilitate better knee extension during stance and gait. Trialed mini-squats and STS for improved transfers, BLE strengthening, and knee flexion. Pt requires cueing initially for form, still reliant on momentum to rise but demonstrates improved weight shifting and equal weight bearing with reps. Currently 3 weeks post op; has 100 deg R knee flexion at start of session (102 post) and still lacking 10 deg of ext at end of session. Pt would benefit from skilled PT for progressive BLE strengthening and flexibility of R knee in order to maximize functional mobility, improve balance, promote independence and decrease fall risk. Physical Therapy Plan Frequency and Duration Frequency of Treatment 1-2x/wk Duration of treatment (weeks) 12 Plan of Care Start Date 10/30/23 Plan of Care End Date 01/22/24 Therapeutic Interventions Therapeutic Interventions Balance Training,Gait Training ,Home Exercise Program,Joint Mobilizations,Lymphedema Management,Manual Therapy, Neuromuscular Re-education, Orthotic/Prosthetic Management ,Patient/Caregiver Education, Self-Care/Home Management, Sensory Integration,Soft Tissue Mobilization, Therapeutic Activities, Therapeutic Exercises Modalities Cold Pack/Ice Massage,Electric Stimulation,Hot Packs, Ultrasound Next Visit Focus/Plan Next Note Type Treatment Note Next Visit Plan Review STS vs mini-squat, LAQ and TKE. wall slides vs knee flex. Lateral stepping, seated hip abduction e-stim quad for LAQ as needed, knee ext. swelling management and STM to HS/quad, TFL; grade I-II joint mob of knee and patella Normalize gait with 4ww and/or spc
--- NOTE | 2023-11-24 16:37 | PT.OTN ---
Current Diagnoses Unilateral primary osteoarthritis, right knee (11/24/23) Stiffness of right knee, not elsewhere classified (11/24/23) Other lack of coordination (11/24/23) Weakness (11/24/23) Physical Therapy Treatment Note PT-OP-A Visit Information Start: 10/30/23 07:30 Freq: Status: Active Protocol: Document 11/24/23 14:32 TS (Rec: 11/24/23 16:37 TS [id number]) Out-Patient Physical Therapy Visit Information Visit Information Visit Type Treatment Note Visit Start Time 14:30 Visit Stop Time 15:15 Visit Number 09/29 Number of IT DATA ARCHITECT Visits 1 PT-OP-B Current Condition Start: 10/30/23 07:30 Freq: Status: Active Protocol: Document 10/30/23 09:03 NM (Rec: 10/30/23 09:54 NM [id number]) Current Condition History of Current Condition Onset Date DOS 10/27/23 Current Complaints pain, limited ROM and mobility History of Current Condition Pt present s/p R TKA from Dr. Abe Cordova on 10/26, [facility]. She presents with w /c, standard walker. She went to ED yesterday due to pain, she did not have her medication (oxycodone). Pt states that she had severe degeneration of her R knee, no specific AL. 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 States that she thinks she tore something in her L knee due to pain; severely hyperextends her L knee. She did not use an AD prior to surgery but had limited mobility. She is using standard walker at home, working on WB status. She is doing toe circles, ankle pumps, toe wiggles following discharge from hospital. She live with and her mom in an apartment. Pt lives in a home with an elevator, has stairs (lives on 3rd floor). Has a w/c, shower chair, FWW. Her leg is wrapped with soraya bandage, pt states has removed soraya bandage. Wearing 1 sandal . Pt is icing and elevating. Treatment Goals Patient/Caregiver Goals wants to be able to kneel, stairs PT-OP-C Subjective Start: 10/30/23 07:30 Freq: Status: Active Protocol: Document 11/24/23 14:32 TS (Rec: 11/24/23 16:37 TS [id number]) OP-PT Subjective Patient Comments Patient Comments Pt reports she is seeing progress. Came in today with 4WW. PT-OP-F Manual Assessment Start: 10/30/23 07:30 Freq: Status: Active Protocol: Document 10/30/23 09:03 NM (Rec: 10/30/23 17:12 NM [id number]) Manual Assessments Soft Tissue Assessment Soft Tissue Mobility Assessment Increased edema along entire RLE. Decreased R heel cord length Joint Mobility Assessment Joint Mobility Assessment Decreased AROM/PROM R knee with empty end feel PT-OP-G Mobility & Gait Start: 10/30/23 07:30 Freq: Status: Active Protocol: Document 10/30/23 09:03 NM (Rec: 10/30/23 17:12 NM [id number]) OP Mobility Evaluation Bed Mobility Rolling min A to assist with RLE Supine to and from Sit min A to assist with RLE to EOB Transfers Sit to Stand CGA to steady to standard walker, RLE in front and pt NWB OP Gait Assessment Gait Gait Assistance Required: Contact Guard Assist Distance (Feet) 20 Able to Maintain Weight Bearing Status No During Gait Assistive Devices Assistive Device Gait Belt,Standard Walker Gait Deviations General Gait Pattern Antalgic,Decreased Stride Length,Step-to Gait Factors Limiting Gait Function Factors Limiting Gait Function Decreased Activity Tolerance, Decreased Strength,Difficulty Following Directions, Incoordination,Limited Range of Motion,Pain,Poor Balance Comments Gait Comments Pt NWB on RLE despite education regarding WBAT. RLE is plantarflexed PT-OP-J Posture/Palpation/Skin Start: 10/30/23 07:30 Freq: Status: Active Protocol: Document 10/30/23 09:03 NM (Rec: 10/30/23 09:54 NM [id number]) Posture Evaluation Position Standing Head/C-Spine Posture Forward Head L-Spine Posture Increased Lordosis Shoulder Posture (L) Rounded,(R) Rounded,(L) Forward,(R) Forward Pelvis Posture Anteriorly Tilted Weight Distribution Weight Shifted Left,Decreased Wt.Bear on (R) Hip Posture (L) Externally Rotated,(R) Externally Rotated Knee Posture (L) Genu Valgus,(R) Genu Valgus Patellar Posture (L) Superior,(R) Superior Ankle/Foot Posture (R) Plantarflexed Comments Posture Comments Demos strong L knee hyperextension Palpation Assessment Location R knee Palpation Findings Edema,Soft Tissue Tightness Palpation Details Increased edema entire RLE, especially near incision No tenderness along posterior calf to knee/thigh Tenderness along R knee Skin Assessment Circumference Measurement RLE Location ankle figure 8 : 54 cm Comments around patellar: 45 cm Incisional Assessment Incision Appearance/Comments Incision covered by bandage with 1 spot of blood. Otherwise, clean, dry and intact. No signs or symptoms of infection or DVT Other Assessments Skin Assessment Comments Bruising along shanna-lateral thigh, posterior calf PT-OP-K Range of Motion Start: 10/30/23 07:30 Freq: Status: Active Protocol: Document 10/30/23 09:03 NM (Rec: 10/30/23 09:54 NM [id number]) Knee Goniometric Range of Motion Knee Right Flexion Active (degrees) 50 Extension Active (degrees) 20 Comments empty end feel Left Flexion Active (degrees) 120 Hyper-Extension Active 5 PT-OP-M Strength Start: 10/30/23 07:30 Freq: Status: Active Protocol: Document 10/30/23 09:03 NM (Rec: 10/30/23 09:54 NM [id number]) Hip Strength Hip Manual Muscle Testing Right Flexion (L2) 3- Fair- Extension (S1) 3- Fair- Abduction 3- Fair- Adduction 3- Fair- Comments extension tested in standing Left Flexion (L2) 4- Good- Extension (S1) 4- Good- Abduction 4- Good- Adduction 4- Good- Comments extension tested in standing Knee Strength Knee Manual Muscle Testing Right Flexion (S2) 3 Fair Extension (L3) 1 Trace Left Flexion (S2) 4- Good- Extension (L3) 4- Good- Ankle/Foot Strength Ankle and Foot Manual Muscle Testing Right Dorsiflexion (L4) 3+ Fair+ Plantarflexion (S1) 4+ Good+ Left Dorsiflexion (L4) 4 Good Plantarflexion (S1) 4 Good Inversion 4 Good PT-OP-Q Treatments Start: 10/30/23 07:30 Freq: Status: Active Protocol: Document 11/24/23 14:32 TS (Rec: 11/24/23 16:37 TS [id number]) Therapeutic Exercises Supine Exercises bridge Supine Exercise Name HEP Side bilateral Equipment Used arms across chest Reps/Minutes 2x10x2 Comments Decreased knee flex on R side knee flexion Side bilateral Equipment Used orange serbian ball Reps/Minutes 20 ea Comments cued use RLE more than L Sitting Exercises Seated hip ABD Resistance LVL 3 latex free Reps/Minutes x15 Comments some discomfort in knee STS Sitting Exercise Name HEP Side bilateral Reps/Minutes 2x5 Comments Cued for hip hinge, less momentum used to today from 18 high. LAQ Side right Reps/Minutes 15x3 hold Comments cued for decreased hip flexion Standing Exercises TKE Standing Exercise Name HEP Side right Resistance level 3 band at knee-latex free Equipment Used PT holding band Reps/Minutes 15x3 hold Manual Therapy Treatment Joint Mobilizations R knee Joint patellar, tibiofemoral Direction sup/inf, PA and AP Grade II Body Position Hooklying Reps/Duration 10 ea Comments Pt has some discomfort with AP 's, reduced pressure PT-OP-R Modalities Start: 11/02/23 09:29 Freq: Status: Active Protocol: Document 11/13/23 08:17 NM (Rec: 11/13/23 09:03 NM [id number]) Electric Stimulation Electric Stimulation Georgian Stimulation Body Location R quad Intensity 16.5 Frequency 50 bps Contraction Type Normal Patient Position Sitting Comments 8 minutes: 10/10 cycle w/ 0.5 sec ramp in long sitting and sitting off EOB. Foam roller under leg for support, performing quad set, LAQ, knee ext into ball. Monitored throughout for pain and assessing skin prior/after, improved quad activation PT-OP-T Assessment and Plan Start: 10/30/23 07:30 Freq: Status: Active Protocol: Document 11/24/23 14:32 TS (Rec: 11/24/23 16:37 TS [id number]) Physical Therapy Assessment Goals Six Impairment R knee flexion AROM lacking; currently 50 deg Short Term Goal (STG) Pt will improve R knee flexion to at least 90 deg in order to demonstrate improved ROM for stairs and gait 11/10/23: 89D AROM 11/13/23: 98 deg post manual and wall slides 11/20/23: 100 deg prior to manual treatment STG Duration 6 weeks MET Detention Goal (LTG) Pt will improve R knee flexion to at least 115 deg in order to demonstrate improved ROM for stairs and gait LTG Duration 10 weeks Five Impairment stairs Short Term Goal (STG) Pt will be able to perform at least 10 step ups with RLE and 1 or fewer hand rail assist in order to demonstrate increased R knee ROM and strength STG Duration 6 weeks Detention Goal (LTG) Pt will perform at least 12 stairs with reciprocal pattern and 1 or fewer hand rail assist in order to demonstrate improved BLE strength and R knee mobility to perform stairs up to apartment LTG Duration 12 weeks Four Impairment gait Short Term Goal (STG) Pt will ambulate without LRAD at least short community distances (500 ft) in order to demonstrate improved BLE strength and normalized gait mechanics, if appropriate STG Duration 6 weeks Staff Internist Office Based Only Goal (LTG) Pt will ambulate without LRAD with normalized gait mechanics at least 1000 ft in order to demonstrate improved BLE strength, if appropriate LTG Duration 12 weeks Three Impairment transfers Short Term Goal (STG) Pt will be able to transfer on /off bed IND in order to demonstrate improved strength and less caregiver burden 11/13/23: pt able to transfer on /off bed IND with minimal pain STG Duration 3 weeks MET Staff Internist Office Based Only Goal (LTG) Pt will be able to perform at least 10 STS with or without LRAD in order to demonstrate improved BLE strength for transfers and gait LTG Duration 12 weeks Two Impairment R knee strength Short Term Goal (STG) Pt will improve R knee flex/ ext strength to at least 4-/5 MMT in order to demonstrate increased strength for gait, transfers, and functional mobility STG Duration 8 weeks Staff Internist Office Based Only Goal (LTG) Pt will improve R knee flex/ ext strength to at least 4+/5 MMT in order to demonstrate increased strength for gait, transfers, and functional mobility LTG Duration 12 weeks One Impairment R knee AROM ext lacking 20 deg Short Term Goal (STG) Pt will improve R knee extension AROM to at least 10 deg in order to improve terminal extension for gait 11/13/23: lacking 10 deg ext post e-stim and manual tx STG Duration 4 weeks Staff Internist Office Based Only Goal (LTG) Pt will improve R knee extension AROM to at least 3 deg in order to improve terminal extension for gait LTG Duration 8 weeks Assessment Summary Assessment Continued TKE and LAQ for knee extension, pt continues to lack full knee ext. She demonstrated deeper squat with use of handrail assist. Pt was instructed in pattela mobs and scar tissue management for at home. With increased reps of STS's pt demonstrated decreased use of momentum from 18 high surface. Pt would benefit from skilled PT for progressive BLE strengthening and flexibility of R knee in order to maximize functional mobility, improve balance, promote independence and decrease fall risk. [ End ] Physical Therapy Plan Next Visit Focus/Plan Next Visit Plan Review sidesteps, TKE and mini -squats, continue manual therapy.
--- NOTE | 2023-11-27 16:14 | PT.OTN ---
Current Diagnoses Unilateral primary osteoarthritis, right knee (11/27/23) Stiffness of right knee, not elsewhere classified (11/27/23) Other lack of coordination (11/27/23) Weakness (11/27/23) Physical Therapy Treatment Note PT-OP-A Visit Information Start: 10/30/23 07:30 Freq: Status: Active Protocol: Document 11/27/23 14:30 TS (Rec: 11/27/23 16:13 TS [id number]) Out-Patient Physical Therapy Visit Information Visit Information Visit Type Treatment Note Visit Start Time 14:40 Visit Stop Time 15:15 Visit Number 10/30 Number of LEADITE WORKER Visits 2 PT-OP-B Current Condition Start: 10/30/23 07:30 Freq: Status: Active Protocol: Document 10/30/23 09:03 NM (Rec: 10/30/23 09:54 NM [id number]) Current Condition History of Current Condition Onset Date DOS 10/27/23 Current Complaints pain, limited ROM and mobility History of Current Condition Pt present s/p R TKA from Dr. Abe Cordova on 10/26, [facility]. She presents with w /c, standard walker. She went to ED yesterday due to pain, she did not have her medication (oxycodone). Pt states that she had severe degeneration of her R knee, no specific AL. 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 States that she thinks she tore something in her L knee due to pain; severely hyperextends her L knee. She did not use an AD prior to surgery but had limited mobility. She is using standard walker at home, working on WB status. She is doing toe circles, ankle pumps, toe wiggles following discharge from hospital. She live with and her mom in an apartment. Pt lives in a home with an elevator, has stairs (lives on 3rd floor). Has a w/c, shower chair, FWW. Her leg is wrapped with soraya bandage, pt states has removed soraya bandage. Wearing 1 sandal . Pt is icing and elevating. Treatment Goals Patient/Caregiver Goals wants to be able to kneel, stairs PT-OP-C Subjective Start: 10/30/23 07:30 Freq: Status: Active Protocol: Document 11/27/23 14:30 TS (Rec: 11/27/23 16:13 TS [id number]) OP-PT Subjective Patient Comments Patient Comments Pt reports some bruising on anterior portion of knee from AP and had some pain later that day. She has been walking around the grocery store. PT-OP-F Manual Assessment Start: 10/30/23 07:30 Freq: Status: Active Protocol: Document 10/30/23 09:03 NM (Rec: 10/30/23 17:12 NM [id number]) Manual Assessments Soft Tissue Assessment Soft Tissue Mobility Assessment Increased edema along entire RLE. Decreased R heel cord length Joint Mobility Assessment Joint Mobility Assessment Decreased AROM/PROM R knee with empty end feel PT-OP-G Mobility & Gait Start: 10/30/23 07:30 Freq: Status: Active Protocol: Document 10/30/23 09:03 NM (Rec: 10/30/23 17:12 NM [id number]) OP Mobility Evaluation Bed Mobility Rolling min A to assist with RLE Supine to and from Sit min A to assist with RLE to EOB Transfers Sit to Stand CGA to steady to standard walker, RLE in front and pt NWB OP Gait Assessment Gait Gait Assistance Required: Contact Guard Assist Distance (Feet) 20 Able to Maintain Weight Bearing Status No During Gait Assistive Devices Assistive Device Gait Belt,Standard Walker Gait Deviations General Gait Pattern Antalgic,Decreased Stride Length,Step-to Gait Factors Limiting Gait Function Factors Limiting Gait Function Decreased Activity Tolerance, Decreased Strength,Difficulty Following Directions, Incoordination,Limited Range of Motion,Pain,Poor Balance Comments Gait Comments Pt NWB on RLE despite education regarding WBAT. RLE is plantarflexed PT-OP-J Posture/Palpation/Skin Start: 10/30/23 07:30 Freq: Status: Active Protocol: Document 10/30/23 09:03 NM (Rec: 10/30/23 09:54 NM [id number]) Posture Evaluation Position Standing Head/C-Spine Posture Forward Head L-Spine Posture Increased Lordosis Shoulder Posture (L) Rounded,(R) Rounded,(L) Forward,(R) Forward Pelvis Posture Anteriorly Tilted Weight Distribution Weight Shifted Left,Decreased Wt.Bear on (R) Hip Posture (L) Externally Rotated,(R) Externally Rotated Knee Posture (L) Genu Valgus,(R) Genu Valgus Patellar Posture (L) Superior,(R) Superior Ankle/Foot Posture (R) Plantarflexed Comments Posture Comments Demos strong L knee hyperextension Palpation Assessment Location R knee Palpation Findings Edema,Soft Tissue Tightness Palpation Details Increased edema entire RLE, especially near incision No tenderness along posterior calf to knee/thigh Tenderness along R knee Skin Assessment Circumference Measurement RLE Location ankle figure 8 : 54 cm Comments around patellar: 45 cm Incisional Assessment Incision Appearance/Comments Incision covered by bandage with 1 spot of blood. Otherwise, clean, dry and intact. No signs or symptoms of infection or DVT Other Assessments Skin Assessment Comments Bruising along shanna-lateral thigh, posterior calf PT-OP-K Range of Motion Start: 10/30/23 07:30 Freq: Status: Active Protocol: Document 10/30/23 09:03 NM (Rec: 10/30/23 09:54 NM [id number]) Knee Goniometric Range of Motion Knee Right Flexion Active (degrees) 50 Extension Active (degrees) 20 Comments empty end feel Left Flexion Active (degrees) 120 Hyper-Extension Active 5 PT-OP-M Strength Start: 10/30/23 07:30 Freq: Status: Active Protocol: Document 10/30/23 09:03 NM (Rec: 10/30/23 09:54 NM [id number]) Hip Strength Hip Manual Muscle Testing Right Flexion (L2) 3- Fair- Extension (S1) 3- Fair- Abduction 3- Fair- Adduction 3- Fair- Comments extension tested in standing Left Flexion (L2) 4- Good- Extension (S1) 4- Good- Abduction 4- Good- Adduction 4- Good- Comments extension tested in standing Knee Strength Knee Manual Muscle Testing Right Flexion (S2) 3 Fair Extension (L3) 1 Trace Left Flexion (S2) 4- Good- Extension (L3) 4- Good- Ankle/Foot Strength Ankle and Foot Manual Muscle Testing Right Dorsiflexion (L4) 3+ Fair+ Plantarflexion (S1) 4+ Good+ Left Dorsiflexion (L4) 4 Good Plantarflexion (S1) 4 Good Inversion 4 Good PT-OP-Q Treatments Start: 10/30/23 07:30 Freq: Status: Active Protocol: Document 11/27/23 14:30 TS (Rec: 11/27/23 16:13 TS [id number]) Therapeutic Exercises Sitting Exercises heel slides Sitting Exercise Name long sitting; AAROM (HEP review) Side right Equipment Used AAROM Reps/Minutes 5x5 hold Comments increased knee flexion. Standing Exercises Step ups Reps/Minutes x12 side steps Side bilateral Reps/Minutes 4x10' TKE Standing Exercise Name HEP Side right Resistance level 3 band at knee-latex free Equipment Used PT holding band Reps/Minutes 15x3 hold PT-OP-R Modalities Start: 11/02/23 09:29 Freq: Status: Active Protocol: Document 11/13/23 08:17 NM (Rec: 11/13/23 09:03 NM [id number]) Electric Stimulation Electric Stimulation Icelandic Stimulation Body Location R quad Intensity 16.5 Frequency 50 bps Contraction Type Normal Patient Position Sitting Comments 8 minutes: 10/10 cycle w/ 0.5 sec ramp in long sitting and sitting off EOB. Foam roller under leg for support, performing quad set, LAQ, knee ext into ball. Monitored throughout for pain and assessing skin prior/after, improved quad activation PT-OP-T Assessment and Plan Start: 10/30/23 07:30 Freq: Status: Active Protocol: Document 11/27/23 14:30 TS (Rec: 11/27/23 16:13 TS [id number]) Physical Therapy Assessment Goals Six Impairment R knee flexion AROM lacking; currently 50 deg Short Term Goal (STG) Pt will improve R knee flexion to at least 90 deg in order to demonstrate improved ROM for stairs and gait 11/10/23: 89D AROM 11/13/23: 98 deg post manual and wall slides 11/20/23: 100 deg prior to manual treatment STG Duration 6 weeks MET Director Skills Goal (LTG) Pt will improve R knee flexion to at least 115 deg in order to demonstrate improved ROM for stairs and gait LTG Duration 10 weeks Five Impairment stairs Short Term Goal (STG) Pt will be able to perform at least 10 step ups with RLE and 1 or fewer hand rail assist in order to demonstrate increased R knee ROM and strength 11/27/23: met STG Duration 6 weeks Senior Living Goal (LTG) Pt will perform at least 12 stairs with reciprocal pattern and 1 or fewer hand rail assist in order to demonstrate improved BLE strength and R knee mobility to perform stairs up to apartment LTG Duration 12 weeks Four Impairment gait Short Term Goal (STG) Pt will ambulate without LRAD at least short community distances (500 ft) in order to demonstrate improved BLE strength and normalized gait mechanics, if appropriate 11/27/23: 250' with 4WW, 250' w /out 4WW. STG Duration 6 weeks Director Skills Goal (LTG) Pt will ambulate without LRAD with normalized gait mechanics at least 1000 ft in order to demonstrate improved BLE strength, if appropriate LTG Duration 12 weeks Three Impairment transfers Short Term Goal (STG) Pt will be able to transfer on /off bed IND in order to demonstrate improved strength and less caregiver burden 11/13/23: pt able to transfer on /off bed IND with minimal pain STG Duration 3 weeks MET Senior Living Goal (LTG) Pt will be able to perform at least 10 STS with or without LRAD in order to demonstrate improved BLE strength for transfers and gait LTG Duration 12 weeks Two Impairment R knee strength Short Term Goal (STG) Pt will improve R knee flex/ ext strength to at least 4-/5 MMT in order to demonstrate increased strength for gait, transfers, and functional mobility STG Duration 8 weeks Director Skills Goal (LTG) Pt will improve R knee flex/ ext strength to at least 4+/5 MMT in order to demonstrate increased strength for gait, transfers, and functional mobility LTG Duration 12 weeks One Impairment R knee AROM ext lacking 20 deg Short Term Goal (STG) Pt will improve R knee extension AROM to at least 10 deg in order to improve terminal extension for gait 11/13/23: lacking 10 deg ext post e-stim and manual tx STG Duration 4 weeks Senior Living Goal (LTG) Pt will improve R knee extension AROM to at least 3 deg in order to improve terminal extension for gait LTG Duration 8 weeks Assessment Summary Assessment Pt ambulated ~250'with 4WW and ~250' without 4WW this session. She completed steps x12 with no handrail assist. Knee ext visually seems ot be improving but still limited in flexion. Continues to have swelling in RLE that limits her, her knee is warm to the touch. Physical Therapy Plan Next Visit Focus/Plan Next Visit Plan Review sidesteps, continue TKE and swelling management.
--- NOTE | 2023-12-04 16:43 | PT.OTN ---
Current Diagnoses Unilateral primary osteoarthritis, right knee (12/04/23) Stiffness of right knee, not elsewhere classified (12/04/23) Other lack of coordination (12/04/23) Weakness (12/04/23) Physical Therapy Treatment Note PT-OP-A Visit Information Start: 10/30/23 07:30 Freq: Status: Active Protocol: Document 12/04/23 14:32 TS (Rec: 12/04/23 16:43 TS [id number]) Out-Patient Physical Therapy Visit Information Visit Information Visit Type Treatment Note Visit Start Time 14:35 Visit Stop Time 15:15 Visit Number 11/30 Number of TALLOW REFINER Visits 3 PT-OP-B Current Condition Start: 10/30/23 07:30 Freq: Status: Active Protocol: Document 10/30/23 09:03 NM (Rec: 10/30/23 09:54 NM [id number]) Current Condition History of Current Condition Onset Date DOS 10/27/23 Current Complaints pain, limited ROM and mobility History of Current Condition Pt present s/p R TKA from Dr. Abe Cordova on 10/26, [facility]. She presents with w /c, standard walker. She went to ED yesterday due to pain, she did not have her medication (oxycodone). Pt states that she had severe degeneration of her R knee, no specific AL. 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 States that she thinks she tore something in her L knee due to pain; severely hyperextends her L knee. She did not use an AD prior to surgery but had limited mobility. She is using standard walker at home, working on WB status. She is doing toe circles, ankle pumps, toe wiggles following discharge from hospital. She live with and her mom in an apartment. Pt lives in a home with an elevator, has stairs (lives on 3rd floor). Has a w/c, shower chair, FWW. Her leg is wrapped with soraya bandage, pt states has removed soraya bandage. Wearing 1 sandal . Pt is icing and elevating. Treatment Goals Patient/Caregiver Goals wants to be able to kneel, stairs PT-OP-C Subjective Start: 10/30/23 07:30 Freq: Status: Active Protocol: Document 12/04/23 14:32 TS (Rec: 12/04/23 16:43 TS [id number]) OP-PT Subjective Patient Comments Patient Comments Pt reports stiffness and pain in the morning, feels the cold is impacting her. She is compliant with her HEP and continues to ice/heat. PT-OP-F Manual Assessment Start: 10/30/23 07:30 Freq: Status: Active Protocol: Document 10/30/23 09:03 NM (Rec: 10/30/23 17:12 NM [id number]) Manual Assessments Soft Tissue Assessment Soft Tissue Mobility Assessment Increased edema along entire RLE. Decreased R heel cord length Joint Mobility Assessment Joint Mobility Assessment Decreased AROM/PROM R knee with empty end feel PT-OP-G Mobility & Gait Start: 10/30/23 07:30 Freq: Status: Active Protocol: Document 10/30/23 09:03 NM (Rec: 10/30/23 17:12 NM [id number]) OP Mobility Evaluation Bed Mobility Rolling min A to assist with RLE Supine to and from Sit min A to assist with RLE to EOB Transfers Sit to Stand CGA to steady to standard walker, RLE in front and pt NWB OP Gait Assessment Gait Gait Assistance Required: Contact Guard Assist Distance (Feet) 20 Able to Maintain Weight Bearing Status No During Gait Assistive Devices Assistive Device Gait Belt,Standard Walker Gait Deviations General Gait Pattern Antalgic,Decreased Stride Length,Step-to Gait Factors Limiting Gait Function Factors Limiting Gait Function Decreased Activity Tolerance, Decreased Strength,Difficulty Following Directions, Incoordination,Limited Range of Motion,Pain,Poor Balance Comments Gait Comments Pt NWB on RLE despite education regarding WBAT. RLE is plantarflexed PT-OP-J Posture/Palpation/Skin Start: 10/30/23 07:30 Freq: Status: Active Protocol: Document 10/30/23 09:03 NM (Rec: 10/30/23 09:54 NM [id number]) Posture Evaluation Position Standing Head/C-Spine Posture Forward Head L-Spine Posture Increased Lordosis Shoulder Posture (L) Rounded,(R) Rounded,(L) Forward,(R) Forward Pelvis Posture Anteriorly Tilted Weight Distribution Weight Shifted Left,Decreased Wt.Bear on (R) Hip Posture (L) Externally Rotated,(R) Externally Rotated Knee Posture (L) Genu Valgus,(R) Genu Valgus Patellar Posture (L) Superior,(R) Superior Ankle/Foot Posture (R) Plantarflexed Comments Posture Comments Demos strong L knee hyperextension Palpation Assessment Location R knee Palpation Findings Edema,Soft Tissue Tightness Palpation Details Increased edema entire RLE, especially near incision No tenderness along posterior calf to knee/thigh Tenderness along R knee Skin Assessment Circumference Measurement RLE Location ankle figure 8 : 54 cm Comments around patellar: 45 cm Incisional Assessment Incision Appearance/Comments Incision covered by bandage with 1 spot of blood. Otherwise, clean, dry and intact. No signs or symptoms of infection or DVT Other Assessments Skin Assessment Comments Bruising along shanna-lateral thigh, posterior calf PT-OP-K Range of Motion Start: 10/30/23 07:30 Freq: Status: Active Protocol: Document 10/30/23 09:03 NM (Rec: 10/30/23 09:54 NM [id number]) Knee Goniometric Range of Motion Knee Right Flexion Active (degrees) 50 Extension Active (degrees) 20 Comments empty end feel Left Flexion Active (degrees) 120 Hyper-Extension Active 5 PT-OP-M Strength Start: 10/30/23 07:30 Freq: Status: Active Protocol: Document 10/30/23 09:03 NM (Rec: 10/30/23 09:54 NM [id number]) Hip Strength Hip Manual Muscle Testing Right Flexion (L2) 3- Fair- Extension (S1) 3- Fair- Abduction 3- Fair- Adduction 3- Fair- Comments extension tested in standing Left Flexion (L2) 4- Good- Extension (S1) 4- Good- Abduction 4- Good- Adduction 4- Good- Comments extension tested in standing Knee Strength Knee Manual Muscle Testing Right Flexion (S2) 3 Fair Extension (L3) 1 Trace Left Flexion (S2) 4- Good- Extension (L3) 4- Good- Ankle/Foot Strength Ankle and Foot Manual Muscle Testing Right Dorsiflexion (L4) 3+ Fair+ Plantarflexion (S1) 4+ Good+ Left Dorsiflexion (L4) 4 Good Plantarflexion (S1) 4 Good Inversion 4 Good PT-OP-Q Treatments Start: 10/30/23 07:30 Freq: Status: Active Protocol: Document 12/04/23 14:32 TS (Rec: 12/04/23 16:43 TS [id number]) Therapeutic Exercises Sitting Exercises STS Sitting Exercise Name HEP Side bilateral Reps/Minutes x5 Comments Has good carryover, no use of hands Standing Exercises Flexion on stair Standing Exercise Name Flexion ROM Reps/Minutes x10 Step ups Side bilateral Reps/Minutes x12 Comments Requires B handrail assist for leading with RLE. side steps Side bilateral Reps/Minutes 4x10' Comments Feels in glutes, better form this session. minisquats Side bilateral Equipment Used standard chair behind pt Reps/Minutes 15 Comments She is getting a deeper squat. TKE Standing Exercise Name HEP Side right Resistance level 3 band at knee-latex free Equipment Used PT holding band Reps/Minutes 15x3 hold Manual Therapy Treatment Soft Tissue Mobilization R knee Body Location swelling management, HS, quad, calf Mobilization Type Rolling Intensity/Depth Superficial Body Position Hooklying Comments Superficial distal > proximal from ankle to thigh to swelling management. Reports tightness in distal hs and distal quad. PT-OP-R Modalities Start: 11/02/23 09:29 Freq: Status: Active Protocol: Document 11/13/23 08:17 NM (Rec: 11/13/23 09:03 NM [id number]) Electric Stimulation Electric Stimulation [place] Islander Stimulation Body Location R quad Intensity 16.5 Frequency 50 bps Contraction Type Normal Patient Position Sitting Comments 8 minutes: 10/10 cycle w/ 0.5 sec ramp in long sitting and sitting off EOB. Foam roller under leg for support, performing quad set, LAQ, knee ext into ball. Monitored throughout for pain and assessing skin prior/after, improved quad activation PT-OP-T Assessment and Plan Start: 10/30/23 07:30 Freq: Status: Active Protocol: Document 12/04/23 14:32 TS (Rec: 12/04/23 16:43 TS [id number]) Physical Therapy Assessment Goals Six Impairment R knee flexion AROM lacking; currently 50 deg Short Term Goal (STG) Pt will improve R knee flexion to at least 90 deg in order to demonstrate improved ROM for stairs and gait 11/10/23: 89D AROM 11/13/23: 98 deg post manual and wall slides 11/20/23: 100 deg prior to manual treatment 12/04/23:100D prior to treatment. STG Duration 6 weeks MET Technical Proposal Writer Goal (LTG) Pt will improve R knee flexion to at least 115 deg in order to demonstrate improved ROM for stairs and gait LTG Duration 10 weeks Five Impairment stairs Short Term Goal (STG) Pt will be able to perform at least 10 step ups with RLE and 1 or fewer hand rail assist in order to demonstrate increased R knee ROM and strength 11/27/23: met STG Duration 6 weeks Half-Way Goal (LTG) Pt will perform at least 12 stairs with reciprocal pattern and 1 or fewer hand rail assist in order to demonstrate improved BLE strength and R knee mobility to perform stairs up to apartment LTG Duration 12 weeks Four Impairment gait Short Term Goal (STG) Pt will ambulate without LRAD at least short community distances (500 ft) in order to demonstrate improved BLE strength and normalized gait mechanics, if appropriate 11/27/23: 250' with 4WW, 250' w /out 4WW. STG Duration 6 weeks Technical Proposal Writer Goal (LTG) Pt will ambulate without LRAD with normalized gait mechanics at least 1000 ft in order to demonstrate improved BLE strength, if appropriate LTG Duration 12 weeks Three Impairment transfers Short Term Goal (STG) Pt will be able to transfer on /off bed IND in order to demonstrate improved strength and less caregiver burden 11/13/23: pt able to transfer on /off bed IND with minimal pain STG Duration 3 weeks MET Half-Way Goal (LTG) Pt will be able to perform at least 10 STS with or without LRAD in order to demonstrate improved BLE strength for transfers and gait LTG Duration 12 weeks Two Impairment R knee strength Short Term Goal (STG) Pt will improve R knee flex/ ext strength to at least 4-/5 MMT in order to demonstrate increased strength for gait, transfers, and functional mobility STG Duration 8 weeks Technical Proposal Writer Goal (LTG) Pt will improve R knee flex/ ext strength to at least 4+/5 MMT in order to demonstrate increased strength for gait, transfers, and functional mobility LTG Duration 12 weeks One Impairment R knee AROM ext lacking 20 deg Short Term Goal (STG) Pt will improve R knee extension AROM to at least 10 deg in order to improve terminal extension for gait 11/13/23: lacking 10 deg ext post e-stim and manual tx 12/04/23: Deg 7 STG Duration 4 weeks Half-Way Goal (LTG) Pt will improve R knee extension AROM to at least 3 deg in order to improve terminal extension for gait LTG Duration 8 weeks Assessment Summary Assessment Pt continues to have about 100 deg of flexion in R knee. Ext improved to ~7 deg in ext. She has improved form with STS and no use of hands. She is getting deeper into her mini squat with handrail assist. She is requiring B handrail assist for leading up with RLE during step ups. Physical Therapy Plan Next Visit Focus/Plan Next Visit Plan Continue sidesteps, manual therapy/ swelling management, flexion on stairs and step ups leading with RLE.
--- NOTE | 2023-12-08 15:51 | PT.OTN ---
Current Diagnoses Unilateral primary osteoarthritis, right knee (12/08/23) Stiffness of right knee, not elsewhere classified (12/08/23) Other lack of coordination (12/08/23) Weakness (12/08/23) Physical Therapy Treatment Note PT-OP-A Visit Information Start: 10/30/23 07:30 Freq: Status: Active Protocol: Document 12/08/23 13:45 TS (Rec: 12/08/23 15:50 TS [id number]) Out-Patient Physical Therapy Visit Information Visit Information Visit Type Treatment Note Visit Start Time 13:50 Visit Stop Time 14:30 Visit Number 12/30 Number of CREATIVE ARTS THERAPIST Visits 4 PT-OP-B Current Condition Start: 10/30/23 07:30 Freq: Status: Active Protocol: Document 10/30/23 09:03 NM (Rec: 10/30/23 09:54 NM [id number]) Current Condition History of Current Condition Onset Date DOS 10/27/23 Current Complaints pain, limited ROM and mobility History of Current Condition Pt present s/p R TKA from Dr. Abe Cordova on 10/26, [facility]. She presents with w /c, standard walker. She went to ED yesterday due to pain, she did not have her medication (oxycodone). Pt states that she had severe degeneration of her R knee, no specific AL. 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 States that she thinks she tore something in her L knee due to pain; severely hyperextends her L knee. She did not use an AD prior to surgery but had limited mobility. She is using standard walker at home, working on WB status. She is doing toe circles, ankle pumps, toe wiggles following discharge from hospital. She live with and her mom in an apartment. Pt lives in a home with an elevator, has stairs (lives on 3rd floor). Has a w/c, shower chair, FWW. Her leg is wrapped with soraya bandage, pt states has removed soraya bandage. Wearing 1 sandal . Pt is icing and elevating. Treatment Goals Patient/Caregiver Goals wants to be able to kneel, stairs PT-OP-C Subjective Start: 10/30/23 07:30 Freq: Status: Active Protocol: Document 12/08/23 13:45 TS (Rec: 12/08/23 15:50 TS [id number]) OP-PT Subjective Patient Comments Patient Comments Pt reports increased swelling in R ankle, has some dry/ peeling skin on her R ankle. R knee is aching more and scar is a more vibrant red color. Has a follow up appointment tomorrow with surgeon. PT-OP-F Manual Assessment Start: 10/30/23 07:30 Freq: Status: Active Protocol: Document 10/30/23 09:03 NM (Rec: 10/30/23 17:12 NM [id number]) Manual Assessments Soft Tissue Assessment Soft Tissue Mobility Assessment Increased edema along entire RLE. Decreased R heel cord length Joint Mobility Assessment Joint Mobility Assessment Decreased AROM/PROM R knee with empty end feel PT-OP-G Mobility & Gait Start: 10/30/23 07:30 Freq: Status: Active Protocol: Document 10/30/23 09:03 NM (Rec: 10/30/23 17:12 NM [id number]) OP Mobility Evaluation Bed Mobility Rolling min A to assist with RLE Supine to and from Sit min A to assist with RLE to EOB Transfers Sit to Stand CGA to steady to standard walker, RLE in front and pt NWB OP Gait Assessment Gait Gait Assistance Required: Contact Guard Assist Distance (Feet) 20 Able to Maintain Weight Bearing Status No During Gait Assistive Devices Assistive Device Gait Belt,Standard Walker Gait Deviations General Gait Pattern Antalgic,Decreased Stride Length,Step-to Gait Factors Limiting Gait Function Factors Limiting Gait Function Decreased Activity Tolerance, Decreased Strength,Difficulty Following Directions, Incoordination,Limited Range of Motion,Pain,Poor Balance Comments Gait Comments Pt NWB on RLE despite education regarding WBAT. RLE is plantarflexed PT-OP-J Posture/Palpation/Skin Start: 10/30/23 07:30 Freq: Status: Active Protocol: Document 10/30/23 09:03 NM (Rec: 10/30/23 09:54 NM [id number]) Posture Evaluation Position Standing Head/C-Spine Posture Forward Head L-Spine Posture Increased Lordosis Shoulder Posture (L) Rounded,(R) Rounded,(L) Forward,(R) Forward Pelvis Posture Anteriorly Tilted Weight Distribution Weight Shifted Left,Decreased Wt.Bear on (R) Hip Posture (L) Externally Rotated,(R) Externally Rotated Knee Posture (L) Genu Valgus,(R) Genu Valgus Patellar Posture (L) Superior,(R) Superior Ankle/Foot Posture (R) Plantarflexed Comments Posture Comments Demos strong L knee hyperextension Palpation Assessment Location R knee Palpation Findings Edema,Soft Tissue Tightness Palpation Details Increased edema entire RLE, especially near incision No tenderness along posterior calf to knee/thigh Tenderness along R knee Skin Assessment Circumference Measurement RLE Location ankle figure 8 : 54 cm Comments around patellar: 45 cm Incisional Assessment Incision Appearance/Comments Incision covered by bandage with 1 spot of blood. Otherwise, clean, dry and intact. No signs or symptoms of infection or DVT Other Assessments Skin Assessment Comments Bruising along shanna-lateral thigh, posterior calf PT-OP-K Range of Motion Start: 10/30/23 07:30 Freq: Status: Active Protocol: Document 10/30/23 09:03 NM (Rec: 10/30/23 09:54 NM [id number]) Knee Goniometric Range of Motion Knee Right Flexion Active (degrees) 50 Extension Active (degrees) 20 Comments empty end feel Left Flexion Active (degrees) 120 Hyper-Extension Active 5 PT-OP-M Strength Start: 10/30/23 07:30 Freq: Status: Active Protocol: Document 10/30/23 09:03 NM (Rec: 10/30/23 09:54 NM [id number]) Hip Strength Hip Manual Muscle Testing Right Flexion (L2) 3- Fair- Extension (S1) 3- Fair- Abduction 3- Fair- Adduction 3- Fair- Comments extension tested in standing Left Flexion (L2) 4- Good- Extension (S1) 4- Good- Abduction 4- Good- Adduction 4- Good- Comments extension tested in standing Knee Strength Knee Manual Muscle Testing Right Flexion (S2) 3 Fair Extension (L3) 1 Trace Left Flexion (S2) 4- Good- Extension (L3) 4- Good- Ankle/Foot Strength Ankle and Foot Manual Muscle Testing Right Dorsiflexion (L4) 3+ Fair+ Plantarflexion (S1) 4+ Good+ Left Dorsiflexion (L4) 4 Good Plantarflexion (S1) 4 Good Inversion 4 Good PT-OP-Q Treatments Start: 10/30/23 07:30 Freq: Status: Active Protocol: Document 12/08/23 13:45 TS (Rec: 12/08/23 15:50 TS [id number]) Therapeutic Exercises Sitting Exercises knee flexion stretch Sitting Exercise Name slide RLE bwd, then L assist to flex ext (HEP review) Side right Equipment Used AROM > AAROM w/ slider Reps/Minutes 15 with 3 hold Comments cued to remain gentle, not push into pain Standing Exercises Heel Raise Reps/Minutes x20 Comments Has some popping in knee cap . Flexion on stair Standing Exercise Name Flexion ROM Reps/Minutes x20 side steps Side bilateral Reps/Minutes 4x10' Comments Feels in glutes, better form this session. minisquats Side bilateral Equipment Used standard chair behind pt Reps/Minutes 15 Comments Gets deeper into squat TKE Standing Exercise Name HEP Side right Resistance level 3 band at knee-latex free Equipment Used PT holding band Reps/Minutes 15x3 hold Manual Therapy Treatment Soft Tissue Mobilization R knee Body Location swelling management, HS, quad, calf Mobilization Type Rolling Intensity/Depth Superficial Body Position Hooklying Comments Superficial distal > proximal from ankle to thigh to swelling management. Reports decreased tightness in R hamstring. PT-OP-R Modalities Start: 11/02/23 09:29 Freq: Status: Active Protocol: Document 11/13/23 08:17 NM (Rec: 11/13/23 09:03 NM [id number]) Electric Stimulation Electric Stimulation [place] Stimulation Body Location R quad Intensity 16.5 Frequency 50 bps Contraction Type Normal Patient Position Sitting Comments 8 minutes: 10/10 cycle w/ 0.5 sec ramp in long sitting and sitting off EOB. Foam roller under leg for support, performing quad set, LAQ, knee ext into ball. Monitored throughout for pain and assessing skin prior/after, improved quad activation PT-OP-T Assessment and Plan Start: 10/30/23 07:30 Freq: Status: Active Protocol: Document 12/08/23 13:45 TS (Rec: 12/08/23 15:50 TS [id number]) Physical Therapy Assessment Goals Six Impairment R knee flexion AROM lacking; currently 50 deg Short Term Goal (STG) Pt will improve R knee flexion to at least 90 deg in order to demonstrate improved ROM for stairs and gait 11/10/23: 89D AROM 11/13/23: 98 deg post manual and wall slides 11/20/23: 100 deg prior to manual treatment 12/04/23:100D prior to treatment. STG Duration 6 weeks MET Monorail Charger Operator Goal (LTG) Pt will improve R knee flexion to at least 115 deg in order to demonstrate improved ROM for stairs and gait LTG Duration 10 weeks Five Impairment stairs Short Term Goal (STG) Pt will be able to perform at least 10 step ups with RLE and 1 or fewer hand rail assist in order to demonstrate increased R knee ROM and strength 11/27/23: met STG Duration 6 weeks Snf Goal (LTG) Pt will perform at least 12 stairs with reciprocal pattern and 1 or fewer hand rail assist in order to demonstrate improved BLE strength and R knee mobility to perform stairs up to apartment LTG Duration 12 weeks Four Impairment gait Short Term Goal (STG) Pt will ambulate without LRAD at least short community distances (500 ft) in order to demonstrate improved BLE strength and normalized gait mechanics, if appropriate 11/27/23: 250' with 4WW, 250' w /out 4WW. STG Duration 6 weeks Snf Goal (LTG) Pt will ambulate without LRAD with normalized gait mechanics at least 1000 ft in order to demonstrate improved BLE strength, if appropriate LTG Duration 12 weeks Three Impairment transfers Short Term Goal (STG) Pt will be able to transfer on /off bed IND in order to demonstrate improved strength and less caregiver burden 11/13/23: pt able to transfer on /off bed IND with minimal pain STG Duration 3 weeks MET Snf Goal (LTG) Pt will be able to perform at least 10 STS with or without LRAD in order to demonstrate improved BLE strength for transfers and gait LTG Duration 12 weeks Two Impairment R knee strength Short Term Goal (STG) Pt will improve R knee flex/ ext strength to at least 4-/5 MMT in order to demonstrate increased strength for gait, transfers, and functional mobility STG Duration 8 weeks Monorail Charger Operator Goal (LTG) Pt will improve R knee flex/ ext strength to at least 4+/5 MMT in order to demonstrate increased strength for gait, transfers, and functional mobility LTG Duration 12 weeks One Impairment R knee AROM ext lacking 20 deg Short Term Goal (STG) Pt will improve R knee extension AROM to at least 10 deg in order to improve terminal extension for gait 11/13/23: lacking 10 deg ext post e-stim and manual tx 12/04/23: Deg 7 STG Duration 4 weeks Monorail Charger Operator Goal (LTG) Pt will improve R knee extension AROM to at least 3 deg in order to improve terminal extension for gait LTG Duration 8 weeks Assessment Summary Assessment Pt continues to have difficulty with flexion of knee, ext is improving. She continues to have swelling and top of knee is warm to the touch. She reports increased swelling in R ankle and some peeling skin. She continues to show imporvement in her mini squat getting deeper down. She has decreased tightness in distal hamstring with manual, distal quad continues to be tight. Physical Therapy Plan Next Visit Focus/Plan Next Visit Plan Ask how follow up appointment went. Assess swelling and R ankle. Continue sidesteps, manual therapy/ swelling management, flexion on stairs and step ups leading with RLE.
--- NOTE | 2023-12-15 15:47 | PT.OTN ---
Current Diagnoses Unilateral primary osteoarthritis, right knee (12/15/23) Stiffness of right knee, not elsewhere classified (12/15/23) Other lack of coordination (12/15/23) Weakness (12/15/23) Physical Therapy Treatment Note PT-OP-A Visit Information Start: 10/30/23 07:30 Freq: Status: Active Protocol: Document 12/15/23 12:57 NM (Rec: 12/15/23 13:48 NM [id number]) Out-Patient Physical Therapy Visit Information Visit Information Visit Type Progress Note Visit Start Time 13:00 Visit Stop Time 13:55 Visit Number 01/30 Evaluation Information Evaluation Date 10/30/23 Precautions Precautions latex allergy R TKA DOS 10/27/23 PT-OP-B Current Condition Start: 10/30/23 07:30 Freq: Status: Active Protocol: Document 10/30/23 09:03 NM (Rec: 10/30/23 09:54 NM [id number]) Current Condition History of Current Condition Onset Date DOS 10/27/23 Current Complaints pain, limited ROM and mobility History of Current Condition Pt present s/p R TKA from Dr. Abe Cordova on 10/26, [facility]. She presents with w /c, standard walker. She went to ED yesterday due to pain, she did not have her medication (oxycodone). Pt states that she had severe degeneration of her R knee, no specific AL. 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 States that she thinks she tore something in her L knee due to pain; severely hyperextends her L knee. She did not use an AD prior to surgery but had limited mobility. She is using standard walker at home, working on WB status. She is doing toe circles, ankle pumps, toe wiggles following discharge from hospital. She live with and her mom in an apartment. Pt lives in a home with an elevator, has stairs (lives on 3rd floor). Has a w/c, shower chair, FWW. Her leg is wrapped with soraya bandage, pt states has removed soraya bandage. Wearing 1 sandal . Pt is icing and elevating. Treatment Goals Patient/Caregiver Goals wants to be able to kneel, stairs PT-OP-C Subjective Start: 10/30/23 07:30 Freq: Status: Active Protocol: Document 12/15/23 12:57 NM (Rec: 12/15/23 13:48 NM [id number]) OP-PT Subjective Patient Comments Patient Comments Pt reports stiff today, states because of cold outside. Pt saw surgeon yesterday, states surgeon is pretty happy; reports still needs to work on ROM, states healing well. Still has swelling in R leg. Has follow up in 6 weeks from now. Pt reports that she is much improved since starting PT. Reports still has difficulty with getting in low places, stepping in/out of shower due to balance, still has stiffness with sitting, initial standing balance, transfer to toilet ( low), stairs going well. Has practiced standing on 1 foot. Still has some redness on either side of scar PT-OP-F Manual Assessment Start: 10/30/23 07:30 Freq: Status: Active Protocol: Document 10/30/23 09:03 NM (Rec: 10/30/23 17:12 NM [id number]) Manual Assessments Soft Tissue Assessment Soft Tissue Mobility Assessment Increased edema along entire RLE. Decreased R heel cord length Joint Mobility Assessment Joint Mobility Assessment Decreased AROM/PROM R knee with empty end feel PT-OP-G Mobility & Gait Start: 10/30/23 07:30 Freq: Status: Active Protocol: Document 10/30/23 09:03 NM (Rec: 10/30/23 17:12 NM [id number]) OP Mobility Evaluation Bed Mobility Rolling min A to assist with RLE Supine to and from Sit min A to assist with RLE to EOB Transfers Sit to Stand CGA to steady to standard walker, RLE in front and pt NWB OP Gait Assessment Gait Gait Assistance Required: Contact Guard Assist Distance (Feet) 20 Able to Maintain Weight Bearing Status No During Gait Assistive Devices Assistive Device Gait Belt,Standard Walker Gait Deviations General Gait Pattern Antalgic,Decreased Stride Length,Step-to Gait Factors Limiting Gait Function Factors Limiting Gait Function Decreased Activity Tolerance, Decreased Strength,Difficulty Following Directions, Incoordination,Limited Range of Motion,Pain,Poor Balance Comments Gait Comments Pt NWB on RLE despite education regarding WBAT. RLE is plantarflexed PT-OP-J Posture/Palpation/Skin Start: 10/30/23 07:30 Freq: Status: Active Protocol: Document 10/30/23 09:03 NM (Rec: 10/30/23 09:54 NM [id number]) Posture Evaluation Position Standing Head/C-Spine Posture Forward Head L-Spine Posture Increased Lordosis Shoulder Posture (L) Rounded,(R) Rounded,(L) Forward,(R) Forward Pelvis Posture Anteriorly Tilted Weight Distribution Weight Shifted Left,Decreased Wt.Bear on (R) Hip Posture (L) Externally Rotated,(R) Externally Rotated Knee Posture (L) Genu Valgus,(R) Genu Valgus Patellar Posture (L) Superior,(R) Superior Ankle/Foot Posture (R) Plantarflexed Comments Posture Comments Demos strong L knee hyperextension Palpation Assessment Location R knee Palpation Findings Edema,Soft Tissue Tightness Palpation Details Increased edema entire RLE, especially near incision No tenderness along posterior calf to knee/thigh Tenderness along R knee Skin Assessment Circumference Measurement RLE Location ankle figure 8 : 54 cm Comments around patellar: 45 cm Incisional Assessment Incision Appearance/Comments Incision covered by bandage with 1 spot of blood. Otherwise, clean, dry and intact. No signs or symptoms of infection or DVT Other Assessments Skin Assessment Comments Bruising along shanna-lateral thigh, posterior calf PT-OP-K Range of Motion Start: 10/30/23 07:30 Freq: Status: Active Protocol: Document 12/15/23 12:57 NM (Rec: 12/15/23 13:48 NM [id number]) Knee Goniometric Range of Motion Knee Right Flexion Active (degrees) 102 Extension Active (degrees) 3 Comments empty end feel IE: 50 deg flex, lacking 20 deg ext Left Flexion Active (degrees) 120 Hyper-Extension Active 5 PT-OP-M Strength Start: 10/30/23 07:30 Freq: Status: Active Protocol: Document 12/15/23 12:57 NM (Rec: 12/15/23 13:48 NM [id number]) Knee Strength Knee Manual Muscle Testing Right Flexion (S2) 4- Good- Extension (L3) 4- Good- Left Flexion (S2) 4- Good- Extension (L3) 4- Good- PT-OP-Q Treatments Start: 10/30/23 07:30 Freq: Status: Active Protocol: Document 12/15/23 12:57 NM (Rec: 12/15/23 13:48 NM [id number]) Therapeutic Exercises Standing Exercises wall squats Side bilateral Equipment Used back against wall Reps/Minutes 20 Comments cued knee flexion Flexion on stair Standing Exercise Name Flexion ROM Reps/Minutes 10x3 Comments post manual and quadruped mobilization; less tight following manual tx Step ups Side right Equipment Used 1 rail assist; 6 step up Reps/Minutes 2x10 ea Comments cued keep RLE on step as stepping down for eccentric control, slower contro Other Exercises knee flexion mobilization Other Exercise Name in quadruped Side bilateral Resistance level 6 Equipment Used mat on floor, pillow under knees; PT min assist for transfer, using plinth Reps/Minutes 10x5 hold Comments issued towel mobilization in supine for HEP Manual Therapy Treatment Consent Patient gave verbal consent for manual Yes treatment Soft Tissue Mobilization R knee Body Location swelling management, HS, quad, calf, scar mobilization Mobilization Type Instrument Assisted,Rolling, Strumming Intensity/Depth Superficial Body Position Hooklying Comments Cupping of scar distal > proximal using smallest cup size; monitored for pain. Adhesions noted near infra and mid patella. Slight redness along middle scar noted afterward. Continues to have mild quad restrictions, reduced with mobilization Joint Mobilizations R knee Joint tibiofemoral, patellar Direction post w/ mild distraction, sup/ inf Grade III Body Position Hooklying Reps/Duration 4x30 ea Comments 102>110 deg post mobilization. Still limited by scar, swelling, adipose tissue. Monitored for pain. Good response to mild distraction with flexion Self-Care/Home Management Treatment Education Patient Education Joint Protection,Pain Management Other Education Educated to continue with compression sock for swelling management. Issued knee flexion mobilization with towel at home instead of banded mobilization PT-OP-R Modalities Start: 11/02/23 09:29 Freq: Status: Active Protocol: Document 12/15/23 12:57 NM (Rec: 12/15/23 15:36 NM [id number]) Hot Pack/Cold Pack Treatment Cold Pack Location R knee Patient Position Supine Patient Tolerance Good Comments Skin assessed prior and after; monitored during modality. Gay and timer within reach. Pt has superficial redness on skin following ice x10 minutes . PT-OP-T Assessment and Plan Start: 10/30/23 07:30 Freq: Status: Active Protocol: Document 12/15/23 12:57 NM (Rec: 12/15/23 13:48 NM [id number]) Physical Therapy Assessment Goals Six Impairment R knee flexion AROM lacking; currently 50 deg Short Term Goal (STG) Pt will improve R knee flexion to at least 90 deg in order to demonstrate improved ROM for stairs and gait 11/10/23: 89D AROM 11/13/23: 98 deg post manual and wall slides 11/20/23: 100 deg prior to manual treatment 12/04/23:100D prior to treatment. STG Duration 6 weeks MET Fpc Goal (LTG) Pt will improve R knee flexion to at least 115 deg in order to demonstrate improved ROM for stairs and gait 12/15/23: 102 deg pre manual, 100 deg post manual LTG Duration 10 weeks PROGRESSING Five Impairment stairs Short Term Goal (STG) Pt will be able to perform at least 10 step ups with RLE and 1 or fewer hand rail assist in order to demonstrate increased R knee ROM and strength 11/27/23: met 12/15/23: 2x10 step ups on RLE wih 1 hand assist STG Duration 6 weeks MET Fpc Goal (LTG) Pt will perform at least 12 stairs with reciprocal pattern and 1 or fewer hand rail assist in order to demonstrate improved BLE strength and R knee mobility to perform stairs up to apartment LTG Duration 12 weeks Four Impairment gait Short Term Goal (STG) Pt will ambulate without LRAD at least short community distances (500 ft) in order to demonstrate improved BLE strength and normalized gait mechanics, if appropriate 11/27/23: 250' with 4WW, 250' w /out 4WW. 12/15/23: pt reports that she an make 3 laps around [facility] without an AD or a cart and no increase in R knee pain STG Duration 6 weeks PROGRESSING Pharmacy Services Representative Goal (LTG) Pt will ambulate without LRAD with normalized gait mechanics at least 1000 ft in order to demonstrate improved BLE strength, if appropriate LTG Duration 12 weeks Three Impairment transfers Short Term Goal (STG) Pt will be able to transfer on /off bed IND in order to demonstrate improved strength and less caregiver burden 11/13/23: pt able to transfer on /off bed IND with minimal pain STG Duration 3 weeks MET Pharmacy Services Representative Goal (LTG) Pt will be able to perform at least 10 STS with or without LRAD in order to demonstrate improved BLE strength for transfers and gait LTG Duration 12 weeks Two Impairment R knee strength Short Term Goal (STG) Pt will improve R knee flex/ ext strength to at least 4-/5 MMT in order to demonstrate increased strength for gait, transfers, and functional mobility 12/15/23: 4-/5 STG Duration 8 weeks Pharmacy Services Representative Goal (LTG) Pt will improve R knee flex/ ext strength to at least 4+/5 MMT in order to demonstrate increased strength for gait, transfers, and functional mobility LTG Duration 12 weeks One Impairment R knee AROM ext lacking 20 deg Short Term Goal (STG) Pt will improve R knee extension AROM to at least 10 deg in order to improve terminal extension for gait 11/13/23: lacking 10 deg ext post e-stim and manual tx 12/04/23: Deg 7 12/15/23: lacking 3 deg pre manual STG Duration 4 weeks Fpc Goal (LTG) Pt will improve R knee extension AROM to at least 3 deg in order to improve terminal extension for gait LTG Duration 8 weeks Assessment Summary Assessment Pt tolerated session fair, reporting soreness at end of session. Trialed quadruped knee flexion mobilization with PT min A for transfer. Improved R knee flexion AROM from 102 to 110 deg. Pt responds well to manual knee flexion mobilization and scar mobilization using cupping, as scar is restricting overall knee flexion. Does have redness over scar following cupping; pt previously educated on rationale and educated to monitor response. Has less tightness over scar at end of session however. Remainder of time spent on glute/quad strength and knee flexion AROM. Improved knee flexion via squat depth during wall squat; cued for equal weight bearing between RLE and LLE. Requires cueing for control on step back, has difficulty with eccentric lowering but none with step up . Pt would benefit from skilled PT for progressive R knee strengthening and mobilization in order to improve ADL tolerance and functional mobility. Physical Therapy Plan Frequency and Duration Frequency of Treatment 1-2x/wk Duration of treatment (weeks) 12 Plan of Care Start Date 10/30/23 Plan of Care End Date 01/22/24 Therapeutic Interventions Therapeutic Interventions Balance Training,Gait Training ,Home Exercise Program,Joint Mobilizations,Lymphedema Management,Manual Therapy, Neuromuscular Re-education, Orthotic/Prosthetic Management ,Patient/Caregiver Education, Self-Care/Home Management, Sensory Integration,Soft Tissue Mobilization, Therapeutic Activities, Therapeutic Exercises Modalities Cold Pack/Ice Massage,Electric Stimulation,Hot Packs, Ultrasound Next Visit Focus/Plan Next Visit Plan Assess tolerance for wall squat and cupping. Knee flexion mobilization (manual, not self w/ pt) and patellar mobilizations. STM to scar (no cupping unless pt ok w/ use) Progress to leg press with low resistance, hurdles for knee flexion. cont step ups fwd with eccentric control, add lateral step up on 4 step with hand support. Increase band resistance for side steps , add fwd and bwd monster walks. LAQ with cables if tolerated
--- NOTE | 2023-12-22 15:31 | PT.OTN ---
Current Diagnoses Unilateral primary osteoarthritis, right knee (12/22/23) Stiffness of right knee, not elsewhere classified (12/22/23) Other lack of coordination (12/22/23) Weakness (12/22/23) Physical Therapy Treatment Note PT-OP-A Visit Information Start: 10/30/23 07:30 Freq: Status: Active Protocol: Document 12/22/23 14:37 NM (Rec: 12/22/23 15:31 NM [id number]) Out-Patient Physical Therapy Visit Information Visit Information Visit Type Treatment Note Visit Note 03/18 post PN Visit Start Time 14:37 Visit Stop Time 15:20 Visit Number 03/01 Evaluation Information Evaluation Date 10/30/23 Precautions Precautions latex allergy R TKA DOS 10/27/23 PT-OP-B Current Condition Start: 10/30/23 07:30 Freq: Status: Active Protocol: Document 10/30/23 09:03 NM (Rec: 10/30/23 09:54 NM [id number]) Current Condition History of Current Condition Onset Date DOS 10/27/23 Current Complaints pain, limited ROM and mobility History of Current Condition Pt present s/p R TKA from Dr. Abe Cordova on 10/26, [facility]. She presents with w /c, standard walker. She went to ED yesterday due to pain, she did not have her medication (oxycodone). Pt states that she had severe degeneration of her R knee, no specific AL. 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 States that she thinks she tore something in her L knee due to pain; severely hyperextends her L knee. She did not use an AD prior to surgery but had limited mobility. She is using standard walker at home, working on WB status. She is doing toe circles, ankle pumps, toe wiggles following discharge from hospital. She live with and her mom in an apartment. Pt lives in a home with an elevator, has stairs (lives on 3rd floor). Has a w/c, shower chair, FWW. Her leg is wrapped with soraya bandage, pt states has removed soraya bandage. Wearing 1 sandal . Pt is icing and elevating. Treatment Goals Patient/Caregiver Goals wants to be able to kneel, stairs PT-OP-C Subjective Start: 10/30/23 07:30 Freq: Status: Active Protocol: Document 12/22/23 14:37 NM (Rec: 12/22/23 15:31 NM [id number]) OP-PT Subjective Patient Comments Patient Comments Pt reports that her knee is very tender, reports stiffness . Partial stiffness due to cold. Reports that cupping did not feel good after last session, reports was red at top of scar and scabbed, but not any more. She reports that overall since weather filter changer the weekend, had more stiffness and popping. She has 7/10 pain in her R knee. Reports exercises are going ok, reports wall squats are difficult and make her sore. PT-OP-F Manual Assessment Start: 10/30/23 07:30 Freq: Status: Active Protocol: Document 10/30/23 09:03 NM (Rec: 10/30/23 17:12 NM [id number]) Manual Assessments Soft Tissue Assessment Soft Tissue Mobility Assessment Increased edema along entire RLE. Decreased R heel cord length Joint Mobility Assessment Joint Mobility Assessment Decreased AROM/PROM R knee with empty end feel PT-OP-G Mobility & Gait Start: 10/30/23 07:30 Freq: Status: Active Protocol: Document 10/30/23 09:03 NM (Rec: 10/30/23 17:12 NM [id number]) OP Mobility Evaluation Bed Mobility Rolling min A to assist with RLE Supine to and from Sit min A to assist with RLE to EOB Transfers Sit to Stand CGA to steady to standard walker, RLE in front and pt NWB OP Gait Assessment Gait Gait Assistance Required: Contact Guard Assist Distance (Feet) 20 Able to Maintain Weight Bearing Status No During Gait Assistive Devices Assistive Device Gait Belt,Standard Walker Gait Deviations General Gait Pattern Antalgic,Decreased Stride Length,Step-to Gait Factors Limiting Gait Function Factors Limiting Gait Function Decreased Activity Tolerance, Decreased Strength,Difficulty Following Directions, Incoordination,Limited Range of Motion,Pain,Poor Balance Comments Gait Comments Pt NWB on RLE despite education regarding WBAT. RLE is plantarflexed PT-OP-J Posture/Palpation/Skin Start: 10/30/23 07:30 Freq: Status: Active Protocol: Document 10/30/23 09:03 NM (Rec: 10/30/23 09:54 NM [id number]) Posture Evaluation Position Standing Head/C-Spine Posture Forward Head L-Spine Posture Increased Lordosis Shoulder Posture (L) Rounded,(R) Rounded,(L) Forward,(R) Forward Pelvis Posture Anteriorly Tilted Weight Distribution Weight Shifted Left,Decreased Wt.Bear on (R) Hip Posture (L) Externally Rotated,(R) Externally Rotated Knee Posture (L) Genu Valgus,(R) Genu Valgus Patellar Posture (L) Superior,(R) Superior Ankle/Foot Posture (R) Plantarflexed Comments Posture Comments Demos strong L knee hyperextension Palpation Assessment Location R knee Palpation Findings Edema,Soft Tissue Tightness Palpation Details Increased edema entire RLE, especially near incision No tenderness along posterior calf to knee/thigh Tenderness along R knee Skin Assessment Circumference Measurement RLE Location ankle figure 8 : 54 cm Comments around patellar: 45 cm Incisional Assessment Incision Appearance/Comments Incision covered by bandage with 1 spot of blood. Otherwise, clean, dry and intact. No signs or symptoms of infection or DVT Other Assessments Skin Assessment Comments Bruising along shanna-lateral thigh, posterior calf PT-OP-K Range of Motion Start: 10/30/23 07:30 Freq: Status: Active Protocol: Document 12/15/23 12:57 NM (Rec: 12/15/23 13:48 NM [id number]) Knee Goniometric Range of Motion Knee Right Flexion Active (degrees) 102 Extension Active (degrees) 3 Comments empty end feel IE: 50 deg flex, lacking 20 deg ext Left Flexion Active (degrees) 120 Hyper-Extension Active 5 PT-OP-M Strength Start: 10/30/23 07:30 Freq: Status: Active Protocol: Document 12/15/23 12:57 NM (Rec: 12/15/23 13:48 NM [id number]) Knee Strength Knee Manual Muscle Testing Right Flexion (S2) 4- Good- Extension (L3) 4- Good- Left Flexion (S2) 4- Good- Extension (L3) 4- Good- PT-OP-Q Treatments Start: 10/30/23 07:30 Freq: Status: Active Protocol: Document 12/22/23 14:37 NM (Rec: 12/22/23 15:31 NM [id number]) Cardio Equipment Recumbent Bicycle Duration (Minutes) 5 Resistance 04 Seat Position 4 Other warm up; reports Gym Equipment Shuttle Recovery B squat Details lvl 3 latexfree band at thighs Resistance 50# (2 navy) Shuttle Recovery Platform Stable Reps/Time 2x10 Therapeutic Exercises Sitting Exercises LAQ Side right Resistance level 2 band at ankles Reps/Minutes 5x2 hold Comments reports popping at patella so d/c w/ band, pain only w/ ecc lower Standing Exercises wall squats Standing Exercise Name did not perform this session but edu to decrease depth for comfort Step ups Side bilateral Equipment Used 6 step up; flat hand for balance Reps/Minutes 15 ea Comments reports sore; cued control and level pelvis w/ eccentric lowering side steps Side bilateral Resistance level 3 band just below knees Reps/Minutes 4x10 ft Comments pain free in knee Manual Therapy Treatment Consent Patient gave verbal consent for manual Yes treatment Soft Tissue Mobilization R knee Body Location swelling management, HS, quad, calf, scar mobilization Mobilization Type Rolling,Strumming Intensity/Depth Superficial Body Position Hooklying Comments Slight redness along scar, most redness at most proximal point; mild scabbing along Educated to follow up with surgeon if redness continues. Scar mobility improved proximally but still slight adhesions distally Continues to have mild quad and HS restrictions, reduced with mobilization Joint Mobilizations R knee Joint tibiofemoral, patellar Direction post w/ mild distraction, sup/ inf Grade III Body Position Hooklying Reps/Duration 4x30 ea Comments 115 > 118 deg post mobilization, lacking 2 deg of ext. Still limited by scar, swelling, adipose tissue. Monitored for pain. Good response to mild distraction with flexion PT-OP-R Modalities Start: 11/02/23 09:29 Freq: Status: Active Protocol: Document 12/15/23 12:57 NM (Rec: 12/15/23 15:36 NM [id number]) Hot Pack/Cold Pack Treatment Cold Pack Location R knee Patient Position Supine Patient Tolerance Good Comments Skin assessed prior and after; monitored during modality. Gay and timer within reach. Pt has superficial redness on skin following ice x10 minutes . PT-OP-T Assessment and Plan Start: 10/30/23 07:30 Freq: Status: Active Protocol: Document 12/22/23 14:37 NM (Rec: 12/22/23 15:31 NM [id number]) Physical Therapy Assessment Goals Six Impairment R knee flexion AROM lacking; currently 50 deg Short Term Goal (STG) Pt will improve R knee flexion to at least 90 deg in order to demonstrate improved ROM for stairs and gait 11/10/23: 89D AROM 9/6/24: 98 deg post manual and wall slides 11/20/23: 100 deg prior to manual treatment 12/04/23:100D prior to treatment. STG Duration 6 weeks [facility] Goal (LTG) Pt will improve R knee flexion to at least 115 deg in order to demonstrate improved ROM for stairs and gait 12/15/23: 102 deg pre manual, 100 deg post manual 12/22/23: 115 deg pre manual, 118 deg post manual LTG Duration 10 weeks PROGRESSING Five Impairment stairs Short Term Goal (STG) Pt will be able to perform at least 10 step ups with RLE and 1 or fewer hand rail assist in order to demonstrate increased R knee ROM and strength 11/27/23: met 12/15/23: 2x10 step ups on RLE wih 1 hand assist STG Duration 6 weeks [facility] Goal (LTG) Pt will perform at least 12 stairs with reciprocal pattern and 1 or fewer hand rail assist in order to demonstrate improved BLE strength and R knee mobility to perform stairs up to apartment LTG Duration 12 weeks Four Impairment gait Short Term Goal (STG) Pt will ambulate without LRAD at least short community distances (500 ft) in order to demonstrate improved BLE strength and normalized gait mechanics, if appropriate 11/27/23: 250' with 4WW, 250' w /out 4WW. 12/15/23: pt reports that she an make 3 laps around [facility] without an AD or a cart and no increase in R knee pain STG Duration 6 weeks PROGRESSING [facility] Goal (LTG) Pt will ambulate without LRAD with normalized gait mechanics at least 1000 ft in order to demonstrate improved BLE strength, if appropriate LTG Duration 12 weeks Three Impairment transfers Short Term Goal (STG) Pt will be able to transfer on /off bed IND in order to demonstrate improved strength and less caregiver burden 11/13/23: pt able to transfer on /off bed IND with minimal pain STG Duration 3 weeks MET [facility] Goal (LTG) Pt will be able to perform at least 10 STS with or without LRAD in order to demonstrate improved BLE strength for transfers and gait LTG Duration 12 weeks Two Impairment R knee strength Short Term Goal (STG) Pt will improve R knee flex/ ext strength to at least 4-/5 MMT in order to demonstrate increased strength for gait, transfers, and functional mobility 12/15/23: 4-/5 STG Duration 8 weeks Penitentiary Goal (LTG) Pt will improve R knee flex/ ext strength to at least 4+/5 MMT in order to demonstrate increased strength for gait, transfers, and functional mobility LTG Duration 12 weeks One Impairment R knee AROM ext lacking 20 deg Short Term Goal (STG) Pt will improve R knee extension AROM to at least 10 deg in order to improve terminal extension for gait 11/13/23: lacking 10 deg ext post e-stim and manual tx 12/04/23: Deg 7 12/15/23: lacking 3 deg pre manual STG Duration 4 weeks [employer] Goal (LTG) Pt will improve R knee extension AROM to at least 3 deg in order to improve terminal extension for gait 12/22/23: lacking 2 deg of extension LTG Duration 8 weeks Assessment Summary Assessment Pt tolerated session fair, reports reduction in pain from 09/15 to 10 in R knee. Pt demos improved R knee ROM, ending with 118 deg flex (post manual tx, starting 115 deg) and lacking 3 deg of extension . Gait less antalgic, less trunk sway. Able to perform increased reps of 6 step ups, hand support only for balance and cueing for strong quad/ glute activation with controlled lowering. Trialed B squat on leg press, no knee pain and improved R knee ROM. Pt has palpable clicking at R knee with LAQ during return to eccentric start. Continues to have good feedback to flexion mobilization with distraction and scar mobilization. Has redness at proximal scar and signs of scabbing (no scab present), educated to alert/ follow up with surgeon if more redness or signs of infection occur. Pt would benefit from skilled PT for progressive R knee flexibility and strengthening in order to improve functional mobility, ability to perform standing/ ambulatory ADLs, and to improve pain management. Physical Therapy Plan Next Visit Focus/Plan Next Note Type Treatment Note Next Visit Plan No cupping. Perform manual tx w/ STM and tibiofemoral mobilization to increase knee flexion Assess hong to banded side steps. SLR, LAQ w/ band, leg press with B squat, hip 3 way vs clock taps with hand support. Balance: hurdles, foam, SLS, NBOS
--- NOTE | 2023-12-25 16:38 | PT.OTN ---
Current Diagnoses Unilateral primary osteoarthritis, right knee (12/25/23) Stiffness of right knee, not elsewhere classified (12/25/23) Other lack of coordination (12/25/23) Weakness (12/25/23) Physical Therapy Treatment Note PT-OP-A Visit Information Start: 10/30/23 07:30 Freq: Status: Active Protocol: Document 12/25/23 14:20 TS (Rec: 12/25/23 16:38 TS [id number]) Out-Patient Physical Therapy Visit Information Visit Information Visit Type Treatment Note Visit Note 04/18 post PN Visit Start Time 14:31 Visit Stop Time 15:15 Visit Number PT-OP-B Current Condition Start: 10/30/23 07:30 Freq: Status: Active Protocol: Document 10/30/23 09:03 NM (Rec: 10/30/23 09:54 NM [id number]) Current Condition History of Current Condition Onset Date DOS 10/27/23 Current Complaints pain, limited ROM and mobility History of Current Condition Pt present s/p R TKA from Dr. Abe Cordova on 10/26, [facility]. She presents with w /c, standard walker. She went to ED yesterday due to pain, she did not have her medication (oxycodone). Pt states that she had severe degeneration of her R knee, no specific AL. 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 States that she thinks she tore something in her L knee due to pain; severely hyperextends her L knee. She did not use an AD prior to surgery but had limited mobility. She is using standard walker at home, working on WB status. She is doing toe circles, ankle pumps, toe wiggles following discharge from hospital. She live with and her mom in an apartment. Pt lives in a home with an elevator, has stairs (lives on 3rd floor). Has a w/c, shower chair, FWW. Her leg is wrapped with soraya bandage, pt states has removed soraya bandage. Wearing 1 sandal . Pt is icing and elevating. Treatment Goals Patient/Caregiver Goals wants to be able to kneel, stairs PT-OP-C Subjective Start: 10/30/23 07:30 Freq: Status: Active Protocol: Document 12/25/23 14:20 TS (Rec: 12/25/23 16:38 TS [id number]) OP-PT Subjective Patient Comments Patient Comments Pt reports scar looks better today. Continues to have cracking and popping in her knee. PT-OP-F Manual Assessment Start: 10/30/23 07:30 Freq: Status: Active Protocol: Document 10/30/23 09:03 NM (Rec: 10/30/23 17:12 NM [id number]) Manual Assessments Soft Tissue Assessment Soft Tissue Mobility Assessment Increased edema along entire RLE. Decreased R heel cord length Joint Mobility Assessment Joint Mobility Assessment Decreased AROM/PROM R knee with empty end feel PT-OP-G Mobility & Gait Start: 10/30/23 07:30 Freq: Status: Active Protocol: Document 10/30/23 09:03 NM (Rec: 10/30/23 17:12 NM [id number]) OP Mobility Evaluation Bed Mobility Rolling min A to assist with RLE Supine to and from Sit min A to assist with RLE to EOB Transfers Sit to Stand CGA to steady to standard walker, RLE in front and pt NWB OP Gait Assessment Gait Gait Assistance Required: Contact Guard Assist Distance (Feet) 20 Able to Maintain Weight Bearing Status No During Gait Assistive Devices Assistive Device Gait Belt,Standard Walker Gait Deviations General Gait Pattern Antalgic,Decreased Stride Length,Step-to Gait Factors Limiting Gait Function Factors Limiting Gait Function Decreased Activity Tolerance, Decreased Strength,Difficulty Following Directions, Incoordination,Limited Range of Motion,Pain,Poor Balance Comments Gait Comments Pt NWB on RLE despite education regarding WBAT. RLE is plantarflexed PT-OP-J Posture/Palpation/Skin Start: 10/30/23 07:30 Freq: Status: Active Protocol: Document 10/30/23 09:03 NM (Rec: 10/30/23 09:54 NM [id number]) Posture Evaluation Position Standing Head/C-Spine Posture Forward Head L-Spine Posture Increased Lordosis Shoulder Posture (L) Rounded,(R) Rounded,(L) Forward,(R) Forward Pelvis Posture Anteriorly Tilted Weight Distribution Weight Shifted Left,Decreased Wt.Bear on (R) Hip Posture (L) Externally Rotated,(R) Externally Rotated Knee Posture (L) Genu Valgus,(R) Genu Valgus Patellar Posture (L) Superior,(R) Superior Ankle/Foot Posture (R) Plantarflexed Comments Posture Comments Demos strong L knee hyperextension Palpation Assessment Location R knee Palpation Findings Edema,Soft Tissue Tightness Palpation Details Increased edema entire RLE, especially near incision No tenderness along posterior calf to knee/thigh Tenderness along R knee Skin Assessment Circumference Measurement RLE Location ankle figure 8 : 54 cm Comments around patellar: 45 cm Incisional Assessment Incision Appearance/Comments Incision covered by bandage with 1 spot of blood. Otherwise, clean, dry and intact. No signs or symptoms of infection or DVT Other Assessments Skin Assessment Comments Bruising along shanna-lateral thigh, posterior calf PT-OP-K Range of Motion Start: 10/30/23 07:30 Freq: Status: Active Protocol: Document 12/15/23 12:57 NM (Rec: 12/15/23 13:48 NM [id number]) Knee Goniometric Range of Motion Knee Right Flexion Active (degrees) 102 Extension Active (degrees) 3 Comments empty end feel IE: 50 deg flex, lacking 20 deg ext Left Flexion Active (degrees) 120 Hyper-Extension Active 5 PT-OP-M Strength Start: 10/30/23 07:30 Freq: Status: Active Protocol: Document 12/15/23 12:57 NM (Rec: 12/15/23 13:48 NM [id number]) Knee Strength Knee Manual Muscle Testing Right Flexion (S2) 4- Good- Extension (L3) 4- Good- Left Flexion (S2) 4- Good- Extension (L3) 4- Good- PT-OP-Q Treatments Start: 10/30/23 07:30 Freq: Status: Active Protocol: Document 12/25/23 14:20 TS (Rec: 12/25/23 16:38 TS [id number]) Cardio Equipment Recumbent Bicycle Duration (Minutes) 5 Resistance 04 Seat Position 4 Other warm up; reports Gym Equipment Shuttle Recovery B squat Details lvl 3 latexfree band at thighs Resistance 50# (2 navy) Shuttle Recovery Platform Stable Reps/Time 2x10 Therapeutic Exercises Standing Exercises clock taps Side bilateral Reps/Minutes 2x5 Comments handrail assist wall squats Reps/Minutes 5x5 Comments fatigues quickly Manual Therapy Treatment Soft Tissue Mobilization R knee Body Location swelling management, HS, quad, calf, scar mobilization Mobilization Type Rolling,Strumming Intensity/Depth Superficial Body Position Hooklying Comments Scar looks better today. Continues have tightness in distal end of scar. Joint Mobilizations R knee Joint tibiofemoral, patellar Direction AP, PA Grade III Body Position Hooklying Reps/Duration x10 Comments Monitored for pain Neuro Re-Education Treatment Balance Activities Foam Details NBOS, eyes closed, HT's Comments Eyes closed challenging, SLS Details foam and flat floor Comments x10 secs on foam for RLE, x30 secs RLE on flat floor PT-OP-R Modalities Start: 11/02/23 09:29 Freq: Status: Active Protocol: Document 12/15/23 12:57 NM (Rec: 12/15/23 15:36 NM [id number]) Hot Pack/Cold Pack Treatment Cold Pack Location R knee Patient Position Supine Patient Tolerance Good Comments Skin assessed prior and after; monitored during modality. Gay and timer within reach. Pt has superficial redness on skin following ice x10 minutes . PT-OP-T Assessment and Plan Start: 10/30/23 07:30 Freq: Status: Active Protocol: Document 12/25/23 14:20 TS (Rec: 12/25/23 16:38 TS [id number]) Physical Therapy Assessment Goals Six Impairment R knee flexion AROM lacking; currently 50 deg Short Term Goal (STG) Pt will improve R knee flexion to at least 90 deg in order to demonstrate improved ROM for stairs and gait 11/10/23: 89D AROM 11/13/23: 98 deg post manual and wall slides 11/20/23: 100 deg prior to manual treatment 12/04/23:100D prior to treatment. STG Duration 6 weeks [facility] Goal (LTG) Pt will improve R knee flexion to at least 115 deg in order to demonstrate improved ROM for stairs and gait 12/15/23: 102 deg pre manual, 100 deg post manual 12/22/23: 115 deg pre manual, 118 deg post manual LTG Duration 10 weeks PROGRESSING Five Impairment stairs Short Term Goal (STG) Pt will be able to perform at least 10 step ups with RLE and 1 or fewer hand rail assist in order to demonstrate increased R knee ROM and strength 11/27/23: met 12/15/23: 2x10 step ups on RLE wih 1 hand assist STG Duration 6 weeks [facility] Goal (LTG) Pt will perform at least 12 stairs with reciprocal pattern and 1 or fewer hand rail assist in order to demonstrate improved BLE strength and R knee mobility to perform stairs up to apartment LTG Duration 12 weeks Four Impairment gait Short Term Goal (STG) Pt will ambulate without LRAD at least short community distances (500 ft) in order to demonstrate improved BLE strength and normalized gait mechanics, if appropriate 11/27/23: 250' with 4WW, 250' w /out 4WW. 12/15/23: pt reports that she an make 3 laps around [facility] without an AD or a cart and no increase in R knee pain STG Duration 6 weeks PROGRESSING Intermediate Goal (LTG) Pt will ambulate without LRAD with normalized gait mechanics at least 1000 ft in order to demonstrate improved BLE strength, if appropriate LTG Duration 12 weeks Three Impairment transfers Short Term Goal (STG) Pt will be able to transfer on /off bed IND in order to demonstrate improved strength and less caregiver burden 11/13/23: pt able to transfer on /off bed IND with minimal pain STG Duration 3 weeks MET [facility] Goal (LTG) Pt will be able to perform at least 10 STS with or without LRAD in order to demonstrate improved BLE strength for transfers and gait LTG Duration 12 weeks Two Impairment R knee strength Short Term Goal (STG) Pt will improve R knee flex/ ext strength to at least 4-/5 MMT in order to demonstrate increased strength for gait, transfers, and functional mobility 12/15/23: 4-/5 STG Duration 8 weeks Usability Engineer Goal (LTG) Pt will improve R knee flex/ ext strength to at least 4+/5 MMT in order to demonstrate increased strength for gait, transfers, and functional mobility LTG Duration 12 weeks One Impairment R knee AROM ext lacking 20 deg Short Term Goal (STG) Pt will improve R knee extension AROM to at least 10 deg in order to improve terminal extension for gait 11/13/23: lacking 10 deg ext post e-stim and manual tx 12/04/23: Deg 7 12/15/23: lacking 3 deg pre manual STG Duration 4 weeks Intermediate Goal (LTG) Pt will improve R knee extension AROM to at least 3 deg in order to improve terminal extension for gait 12/22/23: lacking 2 deg of extension LTG Duration 8 weeks Assessment Summary Assessment Pt continues to have a lower tolerance to ther-ex and balance acts. She fatigues quickly with balance acts on R side and reports increased soreness. Wall squats remain challenging, recommended continued mini squats. She will continue to benefit from PT to improve her R knee flexbility, functional tasks and ADL's. Physical Therapy Plan Next Visit Focus/Plan Next Note Type Treatment Note Next Visit Plan Banded sidesteps, SLR, clock taps, foam balance, SLS, mini squats, recumbent bike.
--- NOTE | 2023-12-29 16:58 | PT.OTN ---
Current Diagnoses Unilateral primary osteoarthritis, right knee (12/29/23) Stiffness of right knee, not elsewhere classified (12/29/23) Other lack of coordination (12/29/23) Weakness (12/29/23) Physical Therapy Treatment Note PT-OP-A Visit Information Start: 10/30/23 07:30 Freq: Status: Active Protocol: Document 12/29/23 13:41 TS (Rec: 12/29/23 16:55 TS [id number]) Out-Patient Physical Therapy Visit Information Visit Information Visit Type Treatment Note Visit Note 05/16 post PN Visit Start Time 13:51 Visit Stop Time 14:30 Visit Number Number of VESSEL SPECIALIST Visits 1 PT-OP-B Current Condition Start: 10/30/23 07:30 Freq: Status: Active Protocol: Document 10/30/23 09:03 NM (Rec: 10/30/23 09:54 NM [id number]) Current Condition History of Current Condition Onset Date DOS 10/27/23 Current Complaints pain, limited ROM and mobility History of Current Condition Pt present s/p R TKA from Dr. Abe Cordova on 10/26, [facility]. She presents with w /c, standard walker. She went to ED yesterday due to pain, she did not have her medication (oxycodone). Pt states that she had severe degeneration of her R knee, no specific AL. 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 States that she thinks she tore something in her L knee due to pain; severely hyperextends her L knee. She did not use an AD prior to surgery but had limited mobility. She is using standard walker at home, working on WB status. She is doing toe circles, ankle pumps, toe wiggles following discharge from hospital. She live with and her mom in an apartment. Pt lives in a home with an elevator, has stairs (lives on 3rd floor). Has a w/c, shower chair, FWW. Her leg is wrapped with soraya bandage, pt states has removed soraya bandage. Wearing 1 sandal . Pt is icing and elevating. Treatment Goals Patient/Caregiver Goals wants to be able to kneel, stairs PT-OP-C Subjective Start: 10/30/23 07:30 Freq: Status: Active Protocol: Document 12/29/23 13:41 TS (Rec: 12/29/23 16:55 TS [id number]) OP-PT Subjective Patient Comments Patient Comments Pt reports some soreness in her R knee this morning. She is allowed to drive again. PT-OP-F Manual Assessment Start: 10/30/23 07:30 Freq: Status: Active Protocol: Document 10/30/23 09:03 NM (Rec: 10/30/23 17:12 NM [id number]) Manual Assessments Soft Tissue Assessment Soft Tissue Mobility Assessment Increased edema along entire RLE. Decreased R heel cord length Joint Mobility Assessment Joint Mobility Assessment Decreased AROM/PROM R knee with empty end feel PT-OP-G Mobility & Gait Start: 10/30/23 07:30 Freq: Status: Active Protocol: Document 10/30/23 09:03 NM (Rec: 10/30/23 17:12 NM [id number]) OP Mobility Evaluation Bed Mobility Rolling min A to assist with RLE Supine to and from Sit min A to assist with RLE to EOB Transfers Sit to Stand CGA to steady to standard walker, RLE in front and pt NWB OP Gait Assessment Gait Gait Assistance Required: Contact Guard Assist Distance (Feet) 20 Able to Maintain Weight Bearing Status No During Gait Assistive Devices Assistive Device Gait Belt,Standard Walker Gait Deviations General Gait Pattern Antalgic,Decreased Stride Length,Step-to Gait Factors Limiting Gait Function Factors Limiting Gait Function Decreased Activity Tolerance, Decreased Strength,Difficulty Following Directions, Incoordination,Limited Range of Motion,Pain,Poor Balance Comments Gait Comments Pt NWB on RLE despite education regarding WBAT. RLE is plantarflexed PT-OP-J Posture/Palpation/Skin Start: 10/30/23 07:30 Freq: Status: Active Protocol: Document 10/30/23 09:03 NM (Rec: 10/30/23 09:54 NM [id number]) Posture Evaluation Position Standing Head/C-Spine Posture Forward Head L-Spine Posture Increased Lordosis Shoulder Posture (L) Rounded,(R) Rounded,(L) Forward,(R) Forward Pelvis Posture Anteriorly Tilted Weight Distribution Weight Shifted Left,Decreased Wt.Bear on (R) Hip Posture (L) Externally Rotated,(R) Externally Rotated Knee Posture (L) Genu Valgus,(R) Genu Valgus Patellar Posture (L) Superior,(R) Superior Ankle/Foot Posture (R) Plantarflexed Comments Posture Comments Demos strong L knee hyperextension Palpation Assessment Location R knee Palpation Findings Edema,Soft Tissue Tightness Palpation Details Increased edema entire RLE, especially near incision No tenderness along posterior calf to knee/thigh Tenderness along R knee Skin Assessment Circumference Measurement RLE Location ankle figure 8 : 54 cm Comments around patellar: 45 cm Incisional Assessment Incision Appearance/Comments Incision covered by bandage with 1 spot of blood. Otherwise, clean, dry and intact. No signs or symptoms of infection or DVT Other Assessments Skin Assessment Comments Bruising along shanna-lateral thigh, posterior calf PT-OP-K Range of Motion Start: 10/30/23 07:30 Freq: Status: Active Protocol: Document 12/15/23 12:57 NM (Rec: 12/15/23 13:48 NM [id number]) Knee Goniometric Range of Motion Knee Right Flexion Active (degrees) 102 Extension Active (degrees) 3 Comments empty end feel IE: 50 deg flex, lacking 20 deg ext Left Flexion Active (degrees) 120 Hyper-Extension Active 5 PT-OP-M Strength Start: 10/30/23 07:30 Freq: Status: Active Protocol: Document 12/15/23 12:57 NM (Rec: 12/15/23 13:48 NM [id number]) Knee Strength Knee Manual Muscle Testing Right Flexion (S2) 4- Good- Extension (L3) 4- Good- Left Flexion (S2) 4- Good- Extension (L3) 4- Good- PT-OP-Q Treatments Start: 10/30/23 07:30 Freq: Status: Active Protocol: Document 12/29/23 13:41 TS (Rec: 12/29/23 16:55 TS [id number]) Cardio Equipment Recumbent Bicycle Duration (Minutes) 5 Resistance 04 Seat Position 4 Other Warm up, getting easier Gym Equipment Shuttle Recovery Uni Squat Details B Resistance 25# Reps/Time 1x10 B squat Resistance 62# Reps/Time 2x10 Therapeutic Exercises Standing Exercises Heel Raise Reps/Minutes x20 Comments Has some popping in knee cap . Flexion on stair Standing Exercise Name Flexion ROM Reps/Minutes 10x3 Manual Therapy Treatment Soft Tissue Mobilization R knee Body Location swelling management, HS, quad, calf, scar mobilization Mobilization Type Rolling,Strumming Intensity/Depth Superficial Body Position Hooklying Comments Scar continues to improve, continues to have tightness in distal scar. Joint Mobilizations R knee Joint tibiofemoral, patellar Direction AP, PA Grade III Body Position Hooklying Reps/Duration x10 Comments Monitored for pain PT-OP-R Modalities Start: 11/02/23 09:29 Freq: Status: Active Protocol: Document 12/15/23 12:57 NM (Rec: 12/15/23 15:36 NM [id number]) Hot Pack/Cold Pack Treatment Cold Pack Location R knee Patient Position Supine Patient Tolerance Good Comments Skin assessed prior and after; monitored during modality. Gay and timer within reach. Pt has superficial redness on skin following ice x10 minutes . PT-OP-T Assessment and Plan Start: 10/30/23 07:30 Freq: Status: Active Protocol: Document 12/29/23 13:41 TS (Rec: 12/29/23 16:55 TS [id number]) Physical Therapy Assessment Goals Six Impairment R knee flexion AROM lacking; currently 50 deg Short Term Goal (STG) Pt will improve R knee flexion to at least 90 deg in order to demonstrate improved ROM for stairs and gait 11/10/23: 89D AROM 11/13/23: 98 deg post manual and wall slides 11/20/23: 100 deg prior to manual treatment 12/04/23:100D prior to treatment. STG Duration 6 weeks MET Rn Embedded Goal (LTG) Pt will improve R knee flexion to at least 115 deg in order to demonstrate improved ROM for stairs and gait 12/15/23: 102 deg pre manual, 100 deg post manual 12/22/23: 115 deg pre manual, 118 deg post manual LTG Duration 10 weeks PROGRESSING Five Impairment stairs Short Term Goal (STG) Pt will be able to perform at least 10 step ups with RLE and 1 or fewer hand rail assist in order to demonstrate increased R knee ROM and strength 11/27/23: met 12/15/23: 2x10 step ups on RLE wih 1 hand assist STG Duration 6 weeks MET Rn Embedded Goal (LTG) Pt will perform at least 12 stairs with reciprocal pattern and 1 or fewer hand rail assist in order to demonstrate improved BLE strength and R knee mobility to perform stairs up to apartment LTG Duration 12 weeks Four Impairment gait Short Term Goal (STG) Pt will ambulate without LRAD at least short community distances (500 ft) in order to demonstrate improved BLE strength and normalized gait mechanics, if appropriate 11/27/23: 250' with 4WW, 250' w /out 4WW. 12/15/23: pt reports that she an make 3 laps around [place] without an AD or a cart and no increase in R knee pain STG Duration 6 weeks PROGRESSING Group Home Goal (LTG) Pt will ambulate without LRAD with normalized gait mechanics at least 1000 ft in order to demonstrate improved BLE strength, if appropriate LTG Duration 12 weeks Three Impairment transfers Short Term Goal (STG) Pt will be able to transfer on /off bed IND in order to demonstrate improved strength and less caregiver burden 11/13/23: pt able to transfer on /off bed IND with minimal pain STG Duration 3 weeks MET Group Home Goal (LTG) Pt will be able to perform at least 10 STS with or without LRAD in order to demonstrate improved BLE strength for transfers and gait LTG Duration 12 weeks Two Impairment R knee strength Short Term Goal (STG) Pt will improve R knee flex/ ext strength to at least 4-/5 MMT in order to demonstrate increased strength for gait, transfers, and functional mobility 12/15/23: 4-/5 STG Duration 8 weeks Group Home Goal (LTG) Pt will improve R knee flex/ ext strength to at least 4+/5 MMT in order to demonstrate increased strength for gait, transfers, and functional mobility LTG Duration 12 weeks One Impairment R knee AROM ext lacking 20 deg Short Term Goal (STG) Pt will improve R knee extension AROM to at least 10 deg in order to improve terminal extension for gait 11/13/23: lacking 10 deg ext post e-stim and manual tx 12/04/23: Deg 7 12/15/23: lacking 3 deg pre manual STG Duration 4 weeks Group Home Goal (LTG) Pt will improve R knee extension AROM to at least 3 deg in order to improve terminal extension for gait 12/22/23: lacking 2 deg of extension LTG Duration 8 weeks Physical Therapy Plan Next Visit Focus/Plan Next Note Type Treatment Note Next Visit Plan Continue manual and scar work. Challenge balance. Assess wall squats, clock taps.
--- NOTE | 2024-01-05 16:56 | PT.OTN ---
Current Diagnoses Unilateral primary osteoarthritis, right knee (01/05/24) Stiffness of right knee, not elsewhere classified (01/05/24) Other lack of coordination (01/05/24) Weakness (01/05/24) Physical Therapy Treatment Note PT-OP-A Visit Information Start: 10/30/23 07:30 Freq: Status: Active Protocol: Document 01/05/24 13:46 TS (Rec: 01/05/24 16:56 TS [id number]) Out-Patient Physical Therapy Visit Information Visit Information Visit Type Treatment Note Visit Note 06/16 post PN Visit Start Time 13:47 Visit Stop Time 14:30 Visit Number Number of VOLLEYBALL COACH Visits 2 PT-OP-B Current Condition Start: 10/30/23 07:30 Freq: Status: Active Protocol: Document 10/30/23 09:03 NM (Rec: 10/30/23 09:54 NM [id number]) Current Condition History of Current Condition Onset Date DOS 10/27/23 Current Complaints pain, limited ROM and mobility History of Current Condition Pt present s/p R TKA from Dr. Abe Cordova on 10/26, [facility]. She presents with w /c, standard walker. She went to ED yesterday due to pain, she did not have her medication (oxycodone). Pt states that she had severe degeneration of her R knee, no specific AL. 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 States that she thinks she tore something in her L knee due to pain; severely hyperextends her L knee. She did not use an AD prior to surgery but had limited mobility. She is using standard walker at home, working on WB status. She is doing toe circles, ankle pumps, toe wiggles following discharge from hospital. She live with and her mom in an apartment. Pt lives in a home with an elevator, has stairs (lives on 3rd floor). Has a w/c, shower chair, FWW. Her leg is wrapped with soraya bandage, pt states has removed soraya bandage. Wearing 1 sandal . Pt is icing and elevating. Treatment Goals Patient/Caregiver Goals wants to be able to kneel, stairs PT-OP-C Subjective Start: 10/30/23 07:30 Freq: Status: Active Protocol: Document 01/05/24 13:46 TS (Rec: 10/29/24 16:56 TS [id number]) OP-PT Subjective Patient Comments Patient Comments Pt reports some soreness and stiffness today. PT-OP-F Manual Assessment Start: 10/30/23 07:30 Freq: Status: Active Protocol: Document 10/30/23 09:03 NM (Rec: 10/30/23 17:12 NM [id number]) Manual Assessments Soft Tissue Assessment Soft Tissue Mobility Assessment Increased edema along entire RLE. Decreased R heel cord length Joint Mobility Assessment Joint Mobility Assessment Decreased AROM/PROM R knee with empty end feel PT-OP-G Mobility & Gait Start: 10/30/23 07:30 Freq: Status: Active Protocol: Document 10/30/23 09:03 NM (Rec: 10/30/23 17:12 NM [id number]) OP Mobility Evaluation Bed Mobility Rolling min A to assist with RLE Supine to and from Sit min A to assist with RLE to EOB Transfers Sit to Stand CGA to steady to standard walker, RLE in front and pt NWB OP Gait Assessment Gait Gait Assistance Required: Contact Guard Assist Distance (Feet) 20 Able to Maintain Weight Bearing Status No During Gait Assistive Devices Assistive Device Gait Belt,Standard Walker Gait Deviations General Gait Pattern Antalgic,Decreased Stride Length,Step-to Gait Factors Limiting Gait Function Factors Limiting Gait Function Decreased Activity Tolerance, Decreased Strength,Difficulty Following Directions, Incoordination,Limited Range of Motion,Pain,Poor Balance Comments Gait Comments Pt NWB on RLE despite education regarding WBAT. RLE is plantarflexed PT-OP-J Posture/Palpation/Skin Start: 10/30/23 07:30 Freq: Status: Active Protocol: Document 10/30/23 09:03 NM (Rec: 10/30/23 09:54 NM [id number]) Posture Evaluation Position Standing Head/C-Spine Posture Forward Head L-Spine Posture Increased Lordosis Shoulder Posture (L) Rounded,(R) Rounded,(L) Forward,(R) Forward Pelvis Posture Anteriorly Tilted Weight Distribution Weight Shifted Left,Decreased Wt.Bear on (R) Hip Posture (L) Externally Rotated,(R) Externally Rotated Knee Posture (L) Genu Valgus,(R) Genu Valgus Patellar Posture (L) Superior,(R) Superior Ankle/Foot Posture (R) Plantarflexed Comments Posture Comments Demos strong L knee hyperextension Palpation Assessment Location R knee Palpation Findings Edema,Soft Tissue Tightness Palpation Details Increased edema entire RLE, especially near incision No tenderness along posterior calf to knee/thigh Tenderness along R knee Skin Assessment Circumference Measurement RLE Location ankle figure 8 : 54 cm Comments around patellar: 45 cm Incisional Assessment Incision Appearance/Comments Incision covered by bandage with 1 spot of blood. Otherwise, clean, dry and intact. No signs or symptoms of infection or DVT Other Assessments Skin Assessment Comments Bruising along shanna-lateral thigh, posterior calf PT-OP-K Range of Motion Start: 10/30/23 07:30 Freq: Status: Active Protocol: Document 12/15/23 12:57 NM (Rec: 12/15/23 13:48 NM [id number]) Knee Goniometric Range of Motion Knee Right Flexion Active (degrees) 102 Extension Active (degrees) 3 Comments empty end feel IE: 50 deg flex, lacking 20 deg ext Left Flexion Active (degrees) 120 Hyper-Extension Active 5 PT-OP-M Strength Start: 10/30/23 07:30 Freq: Status: Active Protocol: Document 12/15/23 12:57 NM (Rec: 12/15/23 13:48 NM [id number]) Knee Strength Knee Manual Muscle Testing Right Flexion (S2) 4- Good- Extension (L3) 4- Good- Left Flexion (S2) 4- Good- Extension (L3) 4- Good- PT-OP-Q Treatments Start: 10/30/23 07:30 Freq: Status: Active Protocol: Document 01/05/24 13:46 TS (Rec: 01/05/24 16:56 TS [id number]) Cardio Equipment Recumbent Bicycle Duration (Minutes) 5 Resistance 04 Seat Position 4 Other Warm up, getting easier Therapeutic Exercises Standing Exercises Heel Raise Reps/Minutes x20 Comments Has some popping in knee cap . Flexion on stair Standing Exercise Name Flexion ROM Reps/Minutes 10x3 Step ups Side bilateral Equipment Used 6 step up; flat hand for balance Reps/Minutes 15 ea Comments reports sore; cued control and level pelvis w/ eccentric lowering side steps Side bilateral Resistance level 4 band just below knees Reps/Minutes 4x10 ft Comments pain free in knee TKE Standing Exercise Name HEP Side right Resistance level 4 band at knee-latex free Equipment Used PT holding band Reps/Minutes 15x3 hold Manual Therapy Treatment Soft Tissue Mobilization R knee Body Location swelling management, HS, quad, calf, scar mobilization Mobilization Type Rolling,Strumming Intensity/Depth Superficial Body Position Hooklying Comments Scar continues to improve, continues to have tightness in distal scar. Joint Mobilizations R knee Joint tibiofemoral, patellar Direction AP, PA Grade III Body Position Hooklying Reps/Duration x10 Comments Monitored for pain PT-OP-R Modalities Start: 11/02/23 09:29 Freq: Status: Active Protocol: Document 12/15/23 12:57 NM (Rec: 12/15/23 15:36 NM [id number]) Hot Pack/Cold Pack Treatment Cold Pack Location R knee Patient Position Supine Patient Tolerance Good Comments Skin assessed prior and after; monitored during modality. Gay and timer within reach. Pt has superficial redness on skin following ice x10 minutes . PT-OP-T Assessment and Plan Start: 10/30/23 07:30 Freq: Status: Active Protocol: Document 01/05/24 13:46 TS (Rec: 01/05/24 16:56 TS [id number]) Physical Therapy Assessment Goals Six Impairment R knee flexion AROM lacking; currently 50 deg Short Term Goal (STG) Pt will improve R knee flexion to at least 90 deg in order to demonstrate improved ROM for stairs and gait 11/10/23: 89D AROM 11/13/23: 98 deg post manual and wall slides 11/20/23: 100 deg prior to manual treatment 12/04/23:100D prior to treatment. STG Duration 6 weeks MET Skilled Nursing Goal (LTG) Pt will improve R knee flexion to at least 115 deg in order to demonstrate improved ROM for stairs and gait 12/15/23: 102 deg pre manual, 100 deg post manual 12/22/23: 115 deg pre manual, 118 deg post manual LTG Duration 10 weeks PROGRESSING Five Impairment stairs Short Term Goal (STG) Pt will be able to perform at least 10 step ups with RLE and 1 or fewer hand rail assist in order to demonstrate increased R knee ROM and strength 11/27/23: met 12/15/23: 2x10 step ups on RLE wih 1 hand assist STG Duration 6 weeks MET Skilled Nursing Goal (LTG) Pt will perform at least 12 stairs with reciprocal pattern and 1 or fewer hand rail assist in order to demonstrate improved BLE strength and R knee mobility to perform stairs up to apartment LTG Duration 12 weeks Four Impairment gait Short Term Goal (STG) Pt will ambulate without LRAD at least short community distances (500 ft) in order to demonstrate improved BLE strength and normalized gait mechanics, if appropriate 11/27/23: 250' with 4WW, 250' w /out 4WW. 12/15/23: pt reports that [facility] or a cart and no increase in R knee pain STG Duration 6 weeks PROGRESSING Skilled Nursing Goal (LTG) Pt will ambulate without LRAD with normalized gait mechanics at least 1000 ft in order to demonstrate improved BLE strength, if appropriate LTG Duration 12 weeks Three Impairment transfers Short Term Goal (STG) Pt will be able to transfer on /off bed IND in order to demonstrate improved strength and less caregiver burden 11/13/23: pt able to transfer on /off bed IND with minimal pain STG Duration 3 weeks MET Care Connector Goal (LTG) Pt will be able to perform at least 10 STS with or without LRAD in order to demonstrate improved BLE strength for transfers and gait LTG Duration 12 weeks Two Impairment R knee strength Short Term Goal (STG) Pt will improve R knee flex/ ext strength to at least 4-/5 MMT in order to demonstrate increased strength for gait, transfers, and functional mobility 12/15/23: 4-/5 STG Duration 8 weeks Care Connector Goal (LTG) Pt will improve R knee flex/ ext strength to at least 4+/5 MMT in order to demonstrate increased strength for gait, transfers, and functional mobility LTG Duration 12 weeks One Impairment R knee AROM ext lacking 20 deg Short Term Goal (STG) Pt will improve R knee extension AROM to at least 10 deg in order to improve terminal extension for gait 11/13/23: lacking 10 deg ext post e-stim and manual tx 12/04/23: Deg 7 12/15/23: lacking 3 deg pre manual STG Duration 4 weeks Skilled Nursing Goal (LTG) Pt will improve R knee extension AROM to at least 3 deg in order to improve terminal extension for gait 12/22/23: lacking 2 deg of extension LTG Duration 8 weeks Assessment Summary Assessment Pt reports increased stiffness and soreness this session, felt some improvement at end of the session with stiffness. Has decreased tolerance to flexion on stairs. Physical Therapy Plan Next Visit Focus/Plan Next Note Type Treatment Note Next Visit Plan Continue manual and scar work. Challenge balance. Assess wall squats, clock taps.
--- NOTE | 2024-01-08 16:53 | PT.OTN ---
Current Diagnoses Unilateral primary osteoarthritis, right knee (01/08/24) Stiffness of right knee, not elsewhere classified (01/08/24) Other lack of coordination (01/08/24) Weakness (01/08/24) Physical Therapy Treatment Note PT-OP-A Visit Information Start: 10/30/23 07:30 Freq: Status: Active Protocol: Document 01/08/24 13:45 TS (Rec: 01/08/24 16:53 TS [id number]) Out-Patient Physical Therapy Visit Information Visit Information Visit Type Treatment Note Visit Note 07/16 post PN Visit Start Time 13:47 Visit Stop Time 14:30 Visit Number Number of HOUSEKEEPING COORDINATOR Visits 3 PT-OP-B Current Condition Start: 10/30/23 07:30 Freq: Status: Active Protocol: Document 10/30/23 09:03 NM (Rec: 10/30/23 09:54 NM [id number]) Current Condition History of Current Condition Onset Date DOS 10/27/23 Current Complaints pain, limited ROM and mobility History of Current Condition Pt present s/p R TKA from Dr. Abe Cordova on 10/26, [facility]. She presents with w /c, standard walker. She went to ED yesterday due to pain, she did not have her medication (oxycodone). Pt states that she had severe degeneration of her R knee, no specific AL. 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 States that she thinks she tore something in her L knee due to pain; severely hyperextends her L knee. She did not use an AD prior to surgery but had limited mobility. She is using standard walker at home, working on WB status. She is doing toe circles, ankle pumps, toe wiggles following discharge from hospital. She live with and her mom in an apartment. Pt lives in a home with an elevator, has stairs (lives on 3rd floor). Has a w/c, shower chair, FWW. Her leg is wrapped with soraya bandage, pt states has removed soraya bandage. Wearing 1 sandal . Pt is icing and elevating. Treatment Goals Patient/Caregiver Goals wants to be able to kneel, stairs PT-OP-C Subjective Start: 10/30/23 07:30 Freq: Status: Active Protocol: Document 01/08/24 13:45 TS (Rec: 01/08/24 16:53 TS [id number]) OP-PT Subjective Patient Comments Patient Comments Pt continues to report some soreness and stiffness in knee today. Heat provides some relief. PT-OP-F Manual Assessment Start: 10/30/23 07:30 Freq: Status: Active Protocol: Document 10/30/23 09:03 NM (Rec: 10/30/23 17:12 NM [id number]) Manual Assessments Soft Tissue Assessment Soft Tissue Mobility Assessment Increased edema along entire RLE. Decreased R heel cord length Joint Mobility Assessment Joint Mobility Assessment Decreased AROM/PROM R knee with empty end feel PT-OP-G Mobility & Gait Start: 10/30/23 07:30 Freq: Status: Active Protocol: Document 10/30/23 09:03 NM (Rec: 10/30/23 17:12 NM [id number]) OP Mobility Evaluation Bed Mobility Rolling min A to assist with RLE Supine to and from Sit min A to assist with RLE to EOB Transfers Sit to Stand CGA to steady to standard walker, RLE in front and pt NWB OP Gait Assessment Gait Gait Assistance Required: Contact Guard Assist Distance (Feet) 20 Able to Maintain Weight Bearing Status No During Gait Assistive Devices Assistive Device Gait Belt,Standard Walker Gait Deviations General Gait Pattern Antalgic,Decreased Stride Length,Step-to Gait Factors Limiting Gait Function Factors Limiting Gait Function Decreased Activity Tolerance, Decreased Strength,Difficulty Following Directions, Incoordination,Limited Range of Motion,Pain,Poor Balance Comments Gait Comments Pt NWB on RLE despite education regarding WBAT. RLE is plantarflexed PT-OP-J Posture/Palpation/Skin Start: 10/30/23 07:30 Freq: Status: Active Protocol: Document 10/30/23 09:03 NM (Rec: 10/30/23 09:54 NM [id number]) Posture Evaluation Position Standing Head/C-Spine Posture Forward Head L-Spine Posture Increased Lordosis Shoulder Posture (L) Rounded,(R) Rounded,(L) Forward,(R) Forward Pelvis Posture Anteriorly Tilted Weight Distribution Weight Shifted Left,Decreased Wt.Bear on (R) Hip Posture (L) Externally Rotated,(R) Externally Rotated Knee Posture (L) Genu Valgus,(R) Genu Valgus Patellar Posture (L) Superior,(R) Superior Ankle/Foot Posture (R) Plantarflexed Comments Posture Comments Demos strong L knee hyperextension Palpation Assessment Location R knee Palpation Findings Edema,Soft Tissue Tightness Palpation Details Increased edema entire RLE, especially near incision No tenderness along posterior calf to knee/thigh Tenderness along R knee Skin Assessment Circumference Measurement RLE Location ankle figure 8 : 54 cm Comments around patellar: 45 cm Incisional Assessment Incision Appearance/Comments Incision covered by bandage with 1 spot of blood. Otherwise, clean, dry and intact. No signs or symptoms of infection or DVT Other Assessments Skin Assessment Comments Bruising along shanna-lateral thigh, posterior calf PT-OP-K Range of Motion Start: 10/30/23 07:30 Freq: Status: Active Protocol: Document 12/15/23 12:57 NM (Rec: 12/15/23 13:48 NM [id number]) Knee Goniometric Range of Motion Knee Right Flexion Active (degrees) 102 Extension Active (degrees) 3 Comments empty end feel IE: 50 deg flex, lacking 20 deg ext Left Flexion Active (degrees) 120 Hyper-Extension Active 5 PT-OP-M Strength Start: 10/30/23 07:30 Freq: Status: Active Protocol: Document 12/15/23 12:57 NM (Rec: 12/15/23 13:48 NM [id number]) Knee Strength Knee Manual Muscle Testing Right Flexion (S2) 4- Good- Extension (L3) 4- Good- Left Flexion (S2) 4- Good- Extension (L3) 4- Good- PT-OP-Q Treatments Start: 10/30/23 07:30 Freq: Status: Active Protocol: Document 01/08/24 13:45 TS (Rec: 01/08/24 16:53 TS [id number]) Cardio Equipment Recumbent Bicycle Duration (Minutes) 6 Resistance 04 Seat Position 4 Other Warm up, getting easier Therapeutic Exercises Standing Exercises 3 way hip Standing Exercise Name Flex, Ext, ABD Resistance LVL 4 Reps/Minutes 1x10 Bosu Lunges Reps/Minutes 2x10 wall squats Reps/Minutes 5x3 Comments fatigues quickly Heel Raise Reps/Minutes x20 side steps Side bilateral Resistance level 4 band just below knees Reps/Minutes 4x10 ft TKE Standing Exercise Name HEP Side right Resistance level 4 band at knee-latex free Reps/Minutes 15x3 hold Manual Therapy Treatment Soft Tissue Mobilization R knee Body Location swelling management, HS, quad, calf, scar mobilization Mobilization Type Rolling,Strumming Intensity/Depth Superficial Body Position Hooklying Comments Scar continues to improve, continues to have tightness in distal scar. Joint Mobilizations R knee Joint tibiofemoral, patellar Direction AP, PA Body Position Hooklying Reps/Duration x10 Comments Monitored for pain PT-OP-R Modalities Start: 11/02/23 09:29 Freq: Status: Active Protocol: Document 12/15/23 12:57 NM (Rec: 12/15/23 15:36 NM [id number]) Hot Pack/Cold Pack Treatment Cold Pack Location R knee Patient Position Supine Patient Tolerance Good Comments Skin assessed prior and after; monitored during modality. Gay and timer within reach. Pt has superficial redness on skin following ice x10 minutes . PT-OP-T Assessment and Plan Start: 10/30/23 07:30 Freq: Status: Active Protocol: Document 01/08/24 13:45 TS (Rec: 01/08/24 16:53 TS [id number]) Physical Therapy Assessment Goals Six Impairment R knee flexion AROM lacking; currently 50 deg Short Term Goal (STG) Pt will improve R knee flexion to at least 90 deg in order to demonstrate improved ROM for stairs and gait 11/10/23: 89D AROM 11/13/23: 98 deg post manual and wall slides 11/20/23: 100 deg prior to manual treatment 12/04/23:100D prior to treatment. STG Duration 6 weeks MET [employer] Crew Member Goal (LTG) Pt will improve R knee flexion to at least 115 deg in order to demonstrate improved ROM for stairs and gait 12/15/23: 102 deg pre manual, 100 deg post manual 12/22/23: 115 deg pre manual, 118 deg post manual LTG Duration 10 weeks PROGRESSING Five Impairment stairs Short Term Goal (STG) Pt will be able to perform at least 10 step ups with RLE and 1 or fewer hand rail assist in order to demonstrate increased R knee ROM and strength 11/27/23: met 12/15/23: 2x10 step ups on RLE wih 1 hand assist STG Duration 6 weeks MET [employer] Crew Member Goal (LTG) Pt will perform at least 12 stairs with reciprocal pattern and 1 or fewer hand rail assist in order to demonstrate improved BLE strength and R knee mobility to perform stairs up to apartment LTG Duration 12 weeks Four Impairment gait Short Term Goal (STG) Pt will ambulate without LRAD at least short community distances (500 ft) in order to demonstrate improved BLE strength and normalized gait mechanics, if appropriate 11/27/23: 250' with 4WW, 250' w /out 4WW. 12/15/23: pt reports that she an make 3 laps around [place]yan without an AD or a cart and no increase in R knee pain STG Duration 6 weeks PROGRESSING [employer] Install[employer] Crew Member Goal (LTG) Pt will ambulate without LRAD with normalized gait mechanics at least 1000 ft in order to demonstrate improved BLE strength, if appropriate LTG Duration 12 weeks Three Impairment transfers Short Term Goal (STG) Pt will be able to transfer on /off bed IND in order to demonstrate improved strength and less caregiver burden 11/13/23: pt able to transfer on /off bed IND with minimal pain STG Duration 3 weeks MET Correction Goal (LTG) Pt will be able to perform at least 10 STS with or without LRAD in order to demonstrate improved BLE strength for transfers and gait LTG Duration 12 weeks Two Impairment R knee strength Short Term Goal (STG) Pt will improve R knee flex/ ext strength to at least 4-/5 MMT in order to demonstrate increased strength for gait, transfers, and functional mobility 12/15/23: 4-/5 STG Duration 8 weeks Correction Goal (LTG) Pt will improve R knee flex/ ext strength to at least 4+/5 MMT in order to demonstrate increased strength for gait, transfers, and functional mobility LTG Duration 12 weeks One Impairment R knee AROM ext lacking 20 deg Short Term Goal (STG) Pt will improve R knee extension AROM to at least 10 deg in order to improve terminal extension for gait 11/13/23: lacking 10 deg ext post e-stim and manual tx 12/04/23: Deg 7 12/15/23: lacking 3 deg pre manual STG Duration 4 weeks Correction Goal (LTG) Pt will improve R knee extension AROM to at least 3 deg in order to improve terminal extension for gait 12/22/23: lacking 2 deg of extension LTG Duration 8 weeks Assessment Summary Assessment Progressed pt to bosu lunges and way hip this session. Pt fatigues with 3 way hip with lvl 4 band. Wall squats continue to be challenging for pt, holds for ~3 secs. Physical Therapy Plan Next Visit Focus/Plan Next Note Type Treatment Note Next Visit Plan Continue balance acts and joint mobs. 3 way hip with lower level band, ezra joshua.
--- NOTE | 2024-01-12 15:58 | PT.OTN ---
Current Diagnoses Unilateral primary osteoarthritis, right knee (01/12/24) Stiffness of right knee, not elsewhere classified (01/12/24) Other lack of coordination (01/12/24) Weakness (01/12/24) Physical Therapy Treatment Note PT-OP-A Visit Information Start: 10/30/23 07:30 Freq: Status: Active Protocol: Document 01/12/24 13:47 NM (Rec: 01/12/24 14:36 NM [id number]) Out-Patient Physical Therapy Visit Information Visit Information Visit Type Progress Note Visit Start Time 13:49 Visit Stop Time 14:30 Visit Number Evaluation Information Evaluation Date 10/30/23 Precautions Precautions latex allergy R TKA DOS 10/27/23 PT-OP-B Current Condition Start: 10/30/23 07:30 Freq: Status: Active Protocol: Document 10/30/23 09:03 NM (Rec: 10/30/23 09:54 NM [id number]) Current Condition History of Current Condition Onset Date DOS 10/27/23 Current Complaints pain, limited ROM and mobility History of Current Condition Pt present s/p R TKA from Dr. Abe Cordova on 10/26, [facility]. She presents with w /c, standard walker. She went to ED yesterday due to pain, she did not have her medication (oxycodone). Pt states that she had severe degeneration of her R knee, no specific AL. 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 States that she thinks she tore something in her L knee due to pain; severely hyperextends her L knee. She did not use an AD prior to surgery but had limited mobility. She is using standard walker at home, working on WB status. She is doing toe circles, ankle pumps, toe wiggles following discharge from hospital. She live with and her mom in an apartment. Pt lives in a home with an elevator, has stairs (lives on 3rd floor). Has a w/c, shower chair, FWW. Her leg is wrapped with soraya bandage, pt states has removed soraya bandage. Wearing 1 sandal . Pt is icing and elevating. Treatment Goals Patient/Caregiver Goals wants to be able to kneel, stairs PT-OP-C Subjective Start: 10/30/23 07:30 Freq: Status: Active Protocol: Document 01/12/24 13:47 NM (Rec: 01/12/24 14:36 NM [id number]) OP-PT Subjective Patient Comments Patient Comments Pt reports knee is doing better. Reports that at end of day, worse if cold or rainy which also causes more swelling and stiffness in addition to achiness. Pt reports 8/10 pain if rainy/ cold, otherwise 4-5/10. Reports achiness with ambulation (1 hr), intense housework (not light housework ). Pt reports strength improving. States that gets clicking in R knee, states MD. Sees surgeon 01/19. Reports that has made a lot of progress, wants to continue PT for more ROM and strength. PT-OP-F Manual Assessment Start: 10/30/23 07:30 Freq: Status: Active Protocol: Document 10/30/23 09:03 NM (Rec: 10/30/23 17:12 NM [id number]) Manual Assessments Soft Tissue Assessment Soft Tissue Mobility Assessment Increased edema along entire RLE. Decreased R heel cord length Joint Mobility Assessment Joint Mobility Assessment Decreased AROM/PROM R knee with empty end feel PT-OP-G Mobility & Gait Start: 10/30/23 07:30 Freq: Status: Active Protocol: Document 10/30/23 09:03 NM (Rec: 10/30/23 17:12 NM [id number]) OP Mobility Evaluation Bed Mobility Rolling min A to assist with RLE Supine to and from Sit min A to assist with RLE to EOB Transfers Sit to Stand CGA to steady to standard walker, RLE in front and pt NWB OP Gait Assessment Gait Gait Assistance Required: Contact Guard Assist Distance (Feet) 20 Able to Maintain Weight Bearing Status No During Gait Assistive Devices Assistive Device Gait Belt,Standard Walker Gait Deviations General Gait Pattern Antalgic,Decreased Stride Length,Step-to Gait Factors Limiting Gait Function Factors Limiting Gait Function Decreased Activity Tolerance, Decreased Strength,Difficulty Following Directions, Incoordination,Limited Range of Motion,Pain,Poor Balance Comments Gait Comments Pt NWB on RLE despite education regarding WBAT. RLE is plantarflexed PT-OP-J Posture/Palpation/Skin Start: 10/30/23 07:30 Freq: Status: Active Protocol: Document 10/30/23 09:03 NM (Rec: 10/30/23 09:54 NM [id number]) Posture Evaluation Position Standing Head/C-Spine Posture Forward Head L-Spine Posture Increased Lordosis Shoulder Posture (L) Rounded,(R) Rounded,(L) Forward,(R) Forward Pelvis Posture Anteriorly Tilted Weight Distribution Weight Shifted Left,Decreased Wt.Bear on (R) Hip Posture (L) Externally Rotated,(R) Externally Rotated Knee Posture (L) Genu Valgus,(R) Genu Valgus Patellar Posture (L) Superior,(R) Superior Ankle/Foot Posture (R) Plantarflexed Comments Posture Comments Demos strong L knee hyperextension Palpation Assessment Location R knee Palpation Findings Edema,Soft Tissue Tightness Palpation Details Increased edema entire RLE, especially near incision No tenderness along posterior calf to knee/thigh Tenderness along R knee Skin Assessment Circumference Measurement RLE Location ankle figure 8 : 54 cm Comments around patellar: 45 cm Incisional Assessment Incision Appearance/Comments Incision covered by bandage with 1 spot of blood. Otherwise, clean, dry and intact. No signs or symptoms of infection or DVT Other Assessments Skin Assessment Comments Bruising along shanna-lateral thigh, posterior calf PT-OP-K Range of Motion Start: 10/30/23 07:30 Freq: Status: Active Protocol: Document 01/12/24 13:47 NM (Rec: 01/12/24 14:36 NM [id number]) Knee Goniometric Range of Motion Knee Right Flexion Active (degrees) 115 Extension Active (degrees) 0 Comments IE: 50 deg flex, lacking 20 deg ext; empty end feel 01/12/24: 115 deg flex, 0 deg ext Left Flexion Active (degrees) 120 Hyper-Extension Active 5 PT-OP-M Strength Start: 10/30/23 07:30 Freq: Status: Active Protocol: Document 01/12/24 13:47 NM (Rec: 01/12/24 14:36 NM [id number]) Knee Strength Knee Manual Muscle Testing Right Flexion (S2) 4 Good Extension (L3) 4 Good Comments 01/12/24: 4/5 Left Flexion (S2) 4- Good- Extension (L3) 4- Good- PT-OP-Q Treatments Start: 10/30/23 07:30 Freq: Status: Active Protocol: Document 01/12/24 13:47 NM (Rec: 01/12/24 14:36 NM [id number]) Cardio Equipment Bicycle (Upright) Duration (Minutes) 2 Other warm up Therapeutic Exercises Sitting Exercises STS Side bilateral Equipment Used no UE support, equal WB Reps/Minutes 10 Comments no pain LAQ Side right Resistance level 4 band at ankles Reps/Minutes 15 Comments pain free but challenging Standing Exercises calf stretch Standing Exercise Name gastrocnemius, soleus Side right Equipment Used with support at stairs for balance Reps/Minutes [address] hip Standing Exercise Name Flex, Ext, ABD Resistance LVL 4 band at ankles Reps/Minutes 10 ea Comments prn hand support for balance; min cues trunk Step ups Standing Exercise Name 13 MAP stairs Side bilateral Equipment Used reciprocal, 1 hand assist Reps/Minutes 1 set Comments dec control w/ descent Other Exercises 6 MWT Reps/Minutes 1360 ft Comments no AD, mild antalgic L stance, increased gait speed knee flexion mobilization Other Exercise Name in supine Side right Resistance 1. with strap, towel behind knee, 2. w/ lvl 4 band at foot Reps/Minutes 10x5 ea Manual Therapy Treatment Consent Patient gave verbal consent for manual Yes treatment Soft Tissue Mobilization R knee Body Location swelling management, HS, quad, calf, scar mobilization Mobilization Type Rolling,Strumming Intensity/Depth Superficial Body Position Hooklying Comments Scar mobility improving but still limited distally. tightness and mild tenderness of hamstrings, quads, and hip flexors Joint Mobilizations R knee Joint tibiofemoral, patellar Direction post with slight inf distraction, inf patellar glide Grade III Body Position Hooklying Reps/Duration 4x30 ea Comments Monitored for pain. 115 deg R knee flex pre, 120 deg R knee flex post. Limited by swelling PT-OP-R Modalities Start: 11/02/23 09:29 Freq: Status: Active Protocol: Document 12/15/23 12:57 NM (Rec: 12/15/23 15:36 NM [id number]) Hot Pack/Cold Pack Treatment Cold Pack Location R knee Patient Position Supine Patient Tolerance Good Comments Skin assessed prior and after; monitored during modality. Gay and timer within reach. Pt has superficial redness on skin following ice x10 minutes . PT-OP-T Assessment and Plan Start: 10/30/23 07:30 Freq: Status: Active Protocol: Document 01/12/24 13:47 NM (Rec: 01/12/24 14:36 NM [id number]) Physical Therapy Assessment Goals Six Impairment R knee flexion AROM lacking; currently 50 deg Short Term Goal (STG) Pt will improve R knee flexion to at least 90 deg in order to demonstrate improved ROM for stairs and gait 11/10/23: 89D AROM 11/13/23: 98 deg post manual and wall slides 11/20/23: 100 deg prior to manual treatment 12/04/23:100D prior to treatment. STG Duration 6 weeks MET Senior Care Goal (LTG) Pt will improve R knee flexion to at least 115 deg in order to demonstrate improved ROM for stairs and gait 12/15/23: 102 deg pre manual, 100 deg post manual 12/22/23: 115 deg pre manual, 118 deg post manual 01/12/24: 115 deg flex LTG Duration 10 weeks MET 01/12/24 Five Impairment stairs Short Term Goal (STG) Pt will be able to perform at least 10 step ups with RLE and 1 or fewer hand rail assist in order to demonstrate increased R knee ROM and strength 11/27/23: met 12/15/23: 2x10 step ups on RLE wih 1 hand assist STG Duration 6 weeks MET Senior Care Goal (LTG) Pt will perform at least 12 stairs with reciprocal pattern and 1 or fewer hand rail assist in order to demonstrate improved BLE strength and R knee mobility to perform stairs up to apartment 01/12/24: 13 stairs in MAP building with 1 hand support on rail using reciprocal pattern; decreased control with descent LTG Duration 12 weeks- 04/08/24; PARTIALLY MET 01/12/24 Four Impairment gait Short Term Goal (STG) Pt will ambulate without LRAD at least short community distances (500 ft) in order to demonstrate improved BLE strength and normalized gait mechanics, if appropriate 11/27/23: 250' with 4WW, 250' w /out 4WW. 12/15/23: pt reports that [facility] an [facility] AD or a cart and no increase in R knee pain STG Duration 6 weeks PROGRESSING Senior Care Goal (LTG) Pt will ambulate without LRAD with normalized gait mechanics at least 1000 ft in order to demonstrate improved BLE strength, if appropriate 01/12/24: 1360 ft without AD, mildly antalgic gait but due to L knee not R surgical knee but no increase in kne pain LTG Duration 12 weeks MET Three Impairment transfers Short Term Goal (STG) Pt will be able to transfer on /off bed IND in order to demonstrate improved strength and less caregiver burden 11/13/23: pt able to transfer on /off bed IND with minimal pain STG Duration 3 weeks MET Bingo Worker Goal (LTG) Pt will be able to perform at least 10 STS with or without LRAD in order to demonstrate improved BLE strength for transfers and gait 01/12/24: 10 STS without pain from standard chair ht without UE assist and no compensations LTG Duration 12 weeks MET 01/12/24 Two Impairment R knee strength Short Term Goal (STG) Pt will improve R knee flex/ ext strength to at least 4-/5 MMT in order to demonstrate increased strength for gait, transfers, and functional mobility 12/15/23: 4-/5 STG Duration 8 weeks Bingo Worker Goal (LTG) Pt will improve R knee flex/ ext strength to at least 4+/5 MMT in order to demonstrate increased strength for gait, transfers, and functional mobility 01/12/24: 4/5 knee flex/ext LTG Duration 12 weeks or 04/08/24- PROGRESSING 01/12/24 One Impairment R knee AROM ext lacking 20 deg Short Term Goal (STG) Pt will improve R knee extension AROM to at least 10 deg in order to improve terminal extension for gait 11/13/23: lacking 10 deg ext post e-stim and manual tx 12/04/23: Deg 7 12/15/23: lacking 3 deg pre manual STG Duration 4 weeks Senior Care Goal (LTG) Pt will improve R knee extension AROM to at least 3 deg in order to improve terminal extension for gait 12/22/23: lacking 2 deg of extension 01/12/24: 0 deg ext LTG Duration 8 weeks MET 01/12/24 Progress Towards Goals Progress Towards Goals Progressing Toward Goals,Slow Progress due to Attendance Issues,Slow Progress - Other, Goals Met Progress Comments 3 LTGs met, progressing toward remaining goals Assessment Summary Assessment Pt tolerated session well without any increase in R knee pain. Met several goals today . Ambulated 1360 ft without AD and minimal gait deviations, mildly antalgic but due to L stance. Still has difficulty with controlling descent on stairs due to limitations in quad strengthbut maintains level pelvis with ascent. Modified hip 3 way for continued glute strengthening, adding slight squat for greater quad control and progressed LAQ to higher level band which pt tolerates well. Educated on continued use of compression to address swelling R knee following surgery but recommended wearing during day vs at night . Physical Therapy Plan Frequency and Duration Frequency of Treatment 1x/Week Duration of treatment (weeks) 12 Plan of Care Start Date 01/12/24 Plan of Care End Date 04/08/24 Therapeutic Interventions Therapeutic Interventions Balance Training,Gait Training ,Home Exercise Program,Joint Mobilizations,Lymphedema Management,Manual Therapy, Neuromuscular Re-education, Orthotic/Prosthetic Management ,Patient/Caregiver Education, Self-Care/Home Management, Sensory Integration,Soft Tissue Mobilization, Therapeutic Activities, Therapeutic Exercises Modalities Cold Pack/Ice Massage,Electric Stimulation,Hot Packs, Ultrasound Next Visit Focus/Plan Next Note Type Treatment Note Next Visit Plan Continue with glute/quad strength. Assess tolerance to progressions with HEP. Lunges and lateral lunges. control with stair descent. leg press. Cont with knee flexion ROM and joint mobilizations as needed Balance: bosu lunges, foam squats, SLS, ball toss
--- NOTE | 2024-01-12 15:59 | PT.OPPOC ---
Physical, Occupational & Speech Therapy At [facility] Current Diagnoses Unilateral primary osteoarthritis, right knee (01/12/24) Stiffness of right knee, not elsewhere classified (01/12/24) Other lack of coordination (01/12/24) Weakness (01/12/24) Visit Care Team Role Provider Type Man Burks MD Family Provider Non-Staff Primary Care Provider Specialty: Family Practice Address: [address] [place] [address], [id number] Email: Abe Cordova DO Attending Provider Non-Staff Referring Provider Specialty: Orthopedic Surgery Address: [address] [place] [address], [id number] Email: Plan Of Care PT-OP-B Current Condition Start: 10/30/23 07:30 Freq: Status: Active Protocol: Document 10/30/23 09:03 NM (Rec: 10/30/23 09:54 NM [id number]) Current Condition History of Current Condition Onset Date DOS 10/27/23 Current Complaints pain, limited ROM and mobility History of Current Condition Pt present s/p R TKA from Dr. Abe Cordova on 10/26, [facility]. She presents with w /c, standard walker. She went to ED yesterday due to pain, she did not have her medication (oxycodone). Pt states that she had severe degeneration of her R knee, no specific AL. 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 States that she thinks she tore something in her L knee due to pain; severely hyperextends her L knee. She did not use an AD prior to surgery but had limited mobility. She is using standard walker at home, working on WB status. She is doing toe circles, ankle pumps, toe wiggles following discharge from hospital. She live with and her mom in an apartment. Pt lives in a home with an elevator, has stairs (lives on 3rd floor). Has a w/c, shower chair, FWW. Her leg is wrapped with soraya bandage, pt states has removed soraya bandage. Wearing 1 sandal . Pt is icing and elevating. Treatment Goals Patient/Caregiver Goals wants to be able to kneel, stairs PT-OP-T Assessment and Plan Start: 10/30/23 07:30 Freq: Status: Active Protocol: Document 01/12/24 13:47 NM (Rec: 01/12/24 14:36 NM [id number]) Physical Therapy Assessment Goals Six Impairment R knee flexion AROM lacking; currently 50 deg Short Term Goal (STG) Pt will improve R knee flexion to at least 90 deg in order to demonstrate improved ROM for stairs and gait 11/10/23: 89D AROM 11/13/23: 98 deg post manual and wall slides 11/20/23: 100 deg prior to manual treatment 12/04/23:100D prior to treatment. STG Duration 6 weeks MET Escrow Assistant Goal (LTG) Pt will improve R knee flexion to at least 115 deg in order to demonstrate improved ROM for stairs and gait 12/15/23: 102 deg pre manual, 100 deg post manual 12/22/23: 115 deg pre manual, 118 deg post manual 01/12/24: 115 deg flex LTG Duration 10 weeks MET 01/12/24 Five Impairment stairs Short Term Goal (STG) Pt will be able to perform at least 10 step ups with RLE and 1 or fewer hand rail assist in order to demonstrate increased R knee ROM and strength 11/27/23: met 12/15/23: 2x10 step ups on RLE wih 1 hand assist STG Duration 6 weeks MET Escrow Assistant Goal (LTG) Pt will perform at least 12 stairs with reciprocal pattern and 1 or fewer hand rail assist in order to demonstrate improved BLE strength and R knee mobility to perform stairs up to apartment 01/12/24: 13 stairs in MAP building with 1 hand support on rail using reciprocal pattern; decreased control with descent LTG Duration 12 weeks- 04/08/24; PARTIALLY MET 01/12/24 Four Impairment gait Short Term Goal (STG) Pt will ambulate without LRAD at least short community distances (500 ft) in order to demonstrate improved BLE strength and normalized gait mechanics, if appropriate 11/27/23: 250' with 4WW, 250' w /out 4WW. 12/15/23: pt reports that she an make 3 laps around [employer] without an AD or a cart and no increase in R knee pain STG Duration 6 weeks PROGRESSING Escrow Assistant Goal (LTG) Pt will ambulate without LRAD with normalized gait mechanics at least 1000 ft in order to demonstrate improved BLE strength, if appropriate 01/12/24: 1360 ft without AD, mildly antalgic gait but due to L knee not R surgical knee but no increase in kne pain LTG Duration 12 weeks MET Three Impairment transfers Short Term Goal (STG) Pt will be able to transfer on /off bed IND in order to demonstrate improved strength and less caregiver burden 11/13/23: pt able to transfer on /off bed IND with minimal pain STG Duration 3 weeks MET Escrow Assistant Goal (LTG) Pt will be able to perform at least 10 STS with or without LRAD in order to demonstrate improved BLE strength for transfers and gait 01/12/24: 10 STS without pain from standard chair ht without UE assist and no compensations LTG Duration 12 weeks MET 01/12/24 Two Impairment R knee strength Short Term Goal (STG) Pt will improve R knee flex/ ext strength to at least 4-/5 MMT in order to demonstrate increased strength for gait, transfers, and functional mobility 12/15/23: 4-/5 STG Duration 8 weeks Escrow Assistant Goal (LTG) Pt will improve R knee flex/ ext strength to at least 4+/5 MMT in order to demonstrate increased strength for gait, transfers, and functional mobility 01/12/24: 4/5 knee flex/ext LTG Duration 12 weeks or 04/08/24- PROGRESSING 01/12/24 One Impairment R knee AROM ext lacking 20 deg Short Term Goal (STG) Pt will improve R knee extension AROM to at least 10 deg in order to improve terminal extension for gait 11/13/23: lacking 10 deg ext post e-stim and manual tx 12/04/23: Deg 7 12/15/23: lacking 3 deg pre manual STG Duration 4 weeks Escrow Assistant Goal (LTG) Pt will improve R knee extension AROM to at least 3 deg in order to improve terminal extension for gait 12/22/23: lacking 2 deg of extension 01/12/24: 0 deg ext LTG Duration 8 weeks MET 01/12/24 Progress Towards Goals Progress Towards Goals Progressing Toward Goals,Slow Progress due to Attendance Issues,Slow Progress - Other, Goals Met Progress Comments 3 LTGs met, progressing toward remaining goals Assessment Summary Assessment Pt has attended x16 visits since initial evaluation in October 2023 s/p R TKA. Pt is progressing well toward PT goals, meeting several. She continues to have limitations in R knee flexion AROM, usually maintains 115 deg but varies depending on pt pain levels. ROM is limited by swelling; PT has educated pt on use of compression and elevation since evaluation, but pt has been partially compliant with carryover. Pt's pain management is improved compared to initial evaluation ; however, she continues to report that she has discomfort with standing or sitting for extended periods, in addition to achiness with ambulation. Pt's R knee strength has improved but she continues to demonstrate quad weakness with testing and observable glute weakness with exercise. Pt is compliant with HEP. She still reports limitations with ability to perform ADLs/IADLs; however, reports improvement via LEFS score 43/80 ( evaluation ). Pt would continue to benefit from skilled PT for strengthening and balance training. 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 In order to improve pt's ability to participate more fully in heavy-duty ADLs/IADLs and functional mobility, pt would benefit from further skilled PT for progressive strengthening and balance training. Physical Therapy Plan Frequency and Duration Frequency of Treatment 1x/Week Duration of treatment (weeks) 12 Plan of Care Start Date 01/12/24 Plan of Care End Date 04/08/24 Therapeutic Interventions Therapeutic Interventions Balance Training,Gait Training ,Home Exercise Program,Joint Mobilizations,Lymphedema Management,Manual Therapy, Neuromuscular Re-education, Orthotic/Prosthetic Management ,Patient/Caregiver Education, Self-Care/Home Management, Sensory Integration,Soft Tissue Mobilization, Therapeutic Activities, Therapeutic Exercises Modalities Cold Pack/Ice Massage,Electric Stimulation,Hot Packs, Ultrasound Next Visit Focus/Plan Next Note Type Treatment Note Next Visit Plan Continue with glute/quad strength. Assess tolerance to progressions with HEP. Lunges and lateral lunges. control with stair descent. leg press. Cont with knee flexion ROM and joint mobilizations as needed Balance: bosu lunges, foam squats, SLS, ball toss Plan of Care Dates Plan of Care Start Date 01/12/24 Plan of Care End Date 04/08/24 Electronically Signed by: Esperanza Resendiz, PT 01/12/24 [id number] If you are in agreement with this Plan of Care, please return a signed and dated copy. I have reviewed this Plan of Care and certify that the skilled therapy services above are required to meet the patient?s needs. Physician Signature Date Printed Name and Credentials Clinical Instructor Signature Printed Name and Credentials
--- NOTE | 2024-01-19 16:10 | PT.OTN ---
Current Diagnoses Unilateral primary osteoarthritis, right knee (01/19/24) Stiffness of right knee, not elsewhere classified (01/19/24) Other lack of coordination (01/19/24) Weakness (01/19/24) Physical Therapy Treatment Note PT-OP-A Visit Information Start: 10/30/23 07:30 Freq: Status: Active Protocol: Document 01/19/24 13:52 NM (Rec: 01/19/24 14:31 NM [id number]) Out-Patient Physical Therapy Visit Information Visit Information Visit Type Treatment Note Visit Start Time 13:52 Visit Stop Time 14:30 Visit Number PT-OP-B Current Condition Start: 10/30/23 07:30 Freq: Status: Active Protocol: Document 10/30/23 09:03 NM (Rec: 10/30/23 09:54 NM [id number]) Current Condition History of Current Condition Onset Date DOS 10/27/23 Current Complaints pain, limited ROM and mobility History of Current Condition Pt present s/p R TKA from Dr. Abe Cordova on 10/26, [facility]. She presents with w /c, standard walker. She went to ED yesterday due to pain, she did not have her medication (oxycodone). Pt states that she had severe degeneration of her R knee, no specific AL. 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 States that she thinks she tore something in her L knee due to pain; severely hyperextends her L knee. She did not use an AD prior to surgery but had limited mobility. She is using standard walker at home, working on WB status. She is doing toe circles, ankle pumps, toe wiggles following discharge from hospital. She live with and her mom in an apartment. Pt lives in a home with an elevator, has stairs (lives on 3rd floor). Has a w/c, shower chair, FWW. Her leg is wrapped with soraya bandage, pt states has removed soraya bandage. Wearing 1 sandal . Pt is icing and elevating. Treatment Goals Patient/Caregiver Goals wants to be able to kneel, stairs PT-OP-C Subjective Start: 10/30/23 07:30 Freq: Status: Active Protocol: Document 01/19/24 13:52 NM (Rec: 01/19/24 14:31 NM [id number]) OP-PT Subjective Patient Comments Patient Comments Pt reports a little knee stiffness and 7-8/10 R knee following cleaning yesterday and rearranging her entire house. She follows up with surgeon. Did not bring exericse sheet. Reports medium hard wiht exercise. Has been wearing compression sleeve during day, which is helping with swelling. will be starting work on [employer] in upcoming weeks PT-OP-F Manual Assessment Start: 10/30/23 07:30 Freq: Status: Active Protocol: Document 10/30/23 09:03 NM (Rec: 10/30/23 17:12 NM [id number]) Manual Assessments Soft Tissue Assessment Soft Tissue Mobility Assessment Increased edema along entire RLE. Decreased R heel cord length Joint Mobility Assessment Joint Mobility Assessment Decreased AROM/PROM R knee with empty end feel PT-OP-G Mobility & Gait Start: 10/30/23 07:30 Freq: Status: Active Protocol: Document 10/30/23 09:03 NM (Rec: 10/30/23 17:12 NM [id number]) OP Mobility Evaluation Bed Mobility Rolling min A to assist with RLE Supine to and from Sit min A to assist with RLE to EOB Transfers Sit to Stand CGA to steady to standard walker, RLE in front and pt NWB OP Gait Assessment Gait Gait Assistance Required: Contact Guard Assist Distance (Feet) 20 Able to Maintain Weight Bearing Status No During Gait Assistive Devices Assistive Device Gait Belt,Standard Walker Gait Deviations General Gait Pattern Antalgic,Decreased Stride Length,Step-to Gait Factors Limiting Gait Function Factors Limiting Gait Function Decreased Activity Tolerance, Decreased Strength,Difficulty Following Directions, Incoordination,Limited Range of Motion,Pain,Poor Balance Comments Gait Comments Pt NWB on RLE despite education regarding WBAT. RLE is plantarflexed PT-OP-J Posture/Palpation/Skin Start: 10/30/23 07:30 Freq: Status: Active Protocol: Document 10/30/23 09:03 NM (Rec: 10/30/23 09:54 NM [id number]) Posture Evaluation Position Standing Head/C-Spine Posture Forward Head L-Spine Posture Increased Lordosis Shoulder Posture (L) Rounded,(R) Rounded,(L) Forward,(R) Forward Pelvis Posture Anteriorly Tilted Weight Distribution Weight Shifted Left,Decreased Wt.Bear on (R) Hip Posture (L) Externally Rotated,(R) Externally Rotated Knee Posture (L) Genu Valgus,(R) Genu Valgus Patellar Posture (L) Superior,(R) Superior Ankle/Foot Posture (R) Plantarflexed Comments Posture Comments Demos strong L knee hyperextension Palpation Assessment Location R knee Palpation Findings Edema,Soft Tissue Tightness Palpation Details Increased edema entire RLE, especially near incision No tenderness along posterior calf to knee/thigh Tenderness along R knee Skin Assessment Circumference Measurement RLE Location ankle figure 8 : 54 cm Comments around patellar: 45 cm Incisional Assessment Incision Appearance/Comments Incision covered by bandage with 1 spot of blood. Otherwise, clean, dry and intact. No signs or symptoms of infection or DVT Other Assessments Skin Assessment Comments Bruising along shanna-lateral thigh, posterior calf PT-OP-K Range of Motion Start: 10/30/23 07:30 Freq: Status: Active Protocol: Document 01/12/24 13:47 NM (Rec: 01/12/24 14:36 NM [id number]) Knee Goniometric Range of Motion Knee Right Flexion Active (degrees) 115 Extension Active (degrees) 0 Comments IE: 50 deg flex, lacking 20 deg ext; empty end feel 01/12/24: 115 deg flex, 0 deg ext Left Flexion Active (degrees) 120 Hyper-Extension Active 5 PT-OP-M Strength Start: 10/30/23 07:30 Freq: Status: Active Protocol: Document 01/12/24 13:47 NM (Rec: 01/12/24 14:36 NM [id number]) Knee Strength Knee Manual Muscle Testing Right Flexion (S2) 4 Good Extension (L3) 4 Good Comments 01/12/24: 4/5 Left Flexion (S2) 4- Good- Extension (L3) 4- Good- PT-OP-Q Treatments Start: 10/30/23 07:30 Freq: Status: Active Protocol: Document 01/19/24 13:52 NM (Rec: 01/19/24 14:31 NM [id number]) Gym Equipment Shuttle Recovery Uni Squat Details R only; cued no knee valgus- v . challenging Resistance 37# Reps/Time 10 Therapeutic Exercises Supine Exercises SLR Supine Exercise Name HEP Side right Reps/Minutes 2x5 with brief pause at top Comments challenging; good quad activation; cued ankle DF full activate whole ROM Sitting Exercises knee flexion stretch Sitting Exercise Name with towel behind leg for post gap: 1. AROM w/ stretch, 2. HSC Side right Reps/Minutes 1. 10x5, 2. 15 w/ level 3 band at ankles (PT hold band) Standing Exercises lunges Standing Exercise Name mini-lunges Side bilateral Equipment Used 2 hand support (facing rail) Reps/Minutes 10 ea Comments tactile cues at hips to limit rot; improved w/ reps Heel Raise Standing Exercise Name eccentric heel raise (2>1) Side bilateral Equipment Used with B hand support for balance Reps/Minutes 10 ea Manual Therapy Treatment Consent Patient gave verbal consent for manual Yes treatment Soft Tissue Mobilization R knee Body Location swelling management, HS, quad, calf, scar mobilization Mobilization Type Rolling,Strumming Intensity/Depth Superficial Body Position Hooklying Comments Scar mobility improving but still limited distally. tightness and mild tenderness of hamstrings, quads, and hip flexors Joint Mobilizations R knee Joint tibiofemoral, patellar Direction post with slight inf distraction, inf patellar glide Grade III Body Position Hooklying Reps/Duration 4x30 ea Comments Monitored for pain. 110 deg R knee flex pre, 1 deg R knee flex post. Limited by swelling Neuro Re-Education Treatment Balance Activities tandem Reps/Duration 2x30 ea SLS Equipment close SBA Comments 15 sec RLE 4x30 SLS w/ prn hand support but after 20 PT-OP-R Modalities Start: 11/02/23 09:29 Freq: Status: Active Protocol: Document 12/15/23 12:57 NM (Rec: 12/15/23 15:36 NM [id number]) Hot Pack/Cold Pack Treatment Cold Pack Location R knee Patient Position Supine Patient Tolerance Good Comments Skin assessed prior and after; monitored during modality. Gay and timer within reach. Pt has superficial redness on skin following ice x10 minutes . PT-OP-T Assessment and Plan Start: 10/30/23 07:30 Freq: Status: Active Protocol: Document 01/19/24 13:52 NM (Rec: 01/19/24 14:31 NM [id number]) Physical Therapy Assessment Goals Six Impairment R knee flexion AROM lacking; currently 50 deg Short Term Goal (STG) Pt will improve R knee flexion to at least 90 deg in order to demonstrate improved ROM for stairs and gait 11/10/23: 89D AROM 11/13/23: 98 deg post manual and wall slides 11/20/23: 100 deg prior to manual treatment 12/04/23:100D prior to treatment. STG Duration 6 weeks MET [employer] Goal (LTG) Pt will improve R knee flexion to at least 115 deg in order to demonstrate improved ROM for stairs and gait 12/15/23: 102 deg pre manual, 100 deg post manual 12/22/23: 115 deg pre manual, 118 deg post manual 01/12/24: 115 deg flex LTG Duration 10 weeks MET 01/12/24 Five Impairment stairs Short Term Goal (STG) Pt will be able to perform at least 10 step ups with RLE and 1 or fewer hand rail assist in order to demonstrate increased R knee ROM and strength 11/27/23: met 12/15/23: 2x10 step ups on RLE wih 1 hand assist STG Duration 6 weeks MET [employer] Goal (LTG) Pt will perform at least 12 stairs with reciprocal pattern and 1 or fewer hand rail assist in order to demonstrate improved BLE strength and R knee mobility to perform stairs up to apartment 01/12/24: 13 stairs in MAP building with 1 hand support on rail using reciprocal pattern; decreased control with descent LTG Duration 12 weeks- 04/08/24; PARTIALLY MET 01/12/24 Four Impairment gait Short Term Goal (STG) Pt will ambulate without LRAD at least short community distances (500 ft) in order to demonstrate improved BLE strength and normalized gait mechanics, if appropriate 11/27/23: 250' with 4WW, 250' w /out 4WW. 12/15/23: pt reports that she an make [address] [facility] without an AD or a cart and no increase in R knee pain STG Duration 6 weeks PROGRESSING Retirement Goal (LTG) Pt will ambulate without LRAD with normalized gait mechanics at least 1000 ft in order to demonstrate improved BLE strength, if appropriate 01/12/24: 1360 ft without AD, mildly antalgic gait but due to L knee not R surgical knee but no increase in kne pain LTG Duration 12 weeks MET Three Impairment transfers Short Term Goal (STG) Pt will be able to transfer on /off bed IND in order to demonstrate improved strength and less caregiver burden 11/13/23: pt able to transfer on /off bed IND with minimal pain STG Duration 3 weeks MET Retirement Goal (LTG) Pt will be able to perform at least 10 STS with or without LRAD in order to demonstrate improved BLE strength for transfers and gait 01/12/24: 10 STS without pain from standard chair ht without UE assist and no compensations LTG Duration 12 weeks MET 01/12/24 Two Impairment R knee strength Short Term Goal (STG) Pt will improve R knee flex/ ext strength to at least 4-/5 MMT in order to demonstrate increased strength for gait, transfers, and functional mobility 12/15/23: 4-/5 STG Duration 8 weeks [employer] Goal (LTG) Pt will improve R knee flex/ ext strength to at least 4+/5 MMT in order to demonstrate increased strength for gait, transfers, and functional mobility 01/12/24: 4/5 knee flex/ext LTG Duration 12 weeks or 04/08/24- PROGRESSING 01/12/24 One Impairment R knee AROM ext lacking 20 deg Short Term Goal (STG) Pt will improve R knee extension AROM to at least 10 deg in order to improve terminal extension for gait 11/13/23: lacking 10 deg ext post e-stim and manual tx 12/04/23: Deg 7 12/15/23: lacking 3 deg pre manual STG Duration 4 weeks [employer] Goal (LTG) Pt will improve R knee extension AROM to at least 3 deg in order to improve terminal extension for gait 12/22/23: lacking 2 deg of extension 01/12/24: 0 deg ext LTG Duration 8 weeks MET 01/12/24 Assessment Summary Assessment Pt improved R knee flexion from 110 deg to 116 deg. PT reports reduction in pain at end of session, but reports soreness following exercises. Quad and glute strength continue to be limited for pt; challenged by single leg squat on leg press, but able to tolerate increased resistance. Pt unable to tolerate extensive reps with exercise today. Better quad activation; initiated SLR, which is challenging for pt but able to maintain quad activation throughout 75% of reps. Improved SLS time on RLE , can maintain stability longer than LLe. Pt would continue to benefit from skilled PT for progressive R knee strengthening in order to improve symptom management and standing tolerance during ADLs. Physical Therapy Plan Frequency and Duration Frequency of Treatment 1x/Week Duration of treatment (weeks) 12 Plan of Care Start Date 01/12/24 Plan of Care End Date 04/08/24 Therapeutic Interventions Therapeutic Interventions Balance Training,Gait Training ,Home Exercise Program,Joint Mobilizations,Lymphedema Management,Manual Therapy, Neuromuscular Re-education, Orthotic/Prosthetic Management ,Patient/Caregiver Education, Self-Care/Home Management, Sensory Integration,Soft Tissue Mobilization, Therapeutic Activities, Therapeutic Exercises Modalities Cold Pack/Ice Massage,Electric Stimulation,Hot Packs, Ultrasound Next Visit Focus/Plan Next Note Type Treatment Note Next Visit Plan Continue with glute/quad strength elisabeth on leg press, stairs, and Squat/SL motion. standing HSC. Cont with balance/proprioception. KNee flexion AROM Assess tolerance to progressions with HEP. Lunges and lateral lunges. control with stair descent. leg press. Cont with knee flexion ROM and joint mobilizations as needed Balance: bosu lunges, foam squats, SLS, ball toss
--- NOTE | 2024-04-14 11:59 | PT.OPDS ---
Current Diagnoses Unilateral primary osteoarthritis, right knee (01/19/24) Stiffness of right knee, not elsewhere classified (01/19/24) Other lack of coordination (01/19/24) Weakness (01/19/24) Visit Care Team Role Provider Type Man Burks MD Family Provider Non-Staff Primary Care Provider Specialty: Family Practice Address: [address] [place] [address], [id number] Email: Abe Cordova DO Attending Provider Non-Staff Referring Provider Specialty: Orthopedic Surgery Address: [address] [place] [address], [phone] Email: Visit Number Visit Number Discharge Summary PT-OP-B Current Condition Start: 10/30/23 07:30 Freq: Status: Active Protocol: Document 10/30/23 09:03 NM (Rec: 10/30/23 09:54 NM [id number]) Current Condition History of Current Condition Onset Date DOS 10/27/23 Current Complaints pain, limited ROM and mobility History of Current Condition Pt present s/p R TKA from Dr. Abe Cordova on 10/26, [facility]. She presents with w /c, standard walker. She went to ED yesterday due to pain, she did not have her medication (oxycodone). Pt states that she had severe degeneration of her R knee, no specific AL. 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 States that she thinks she tore something in her L knee due to pain; severely hyperextends her L knee. She did not use an AD prior to surgery but had limited mobility. She is using standard walker at home, working on WB status. She is doing toe circles, ankle pumps, toe wiggles following discharge from hospital. She live with and her mom in an apartment. Pt lives in a home with an elevator, has stairs (lives on 3rd floor). Has a w/c, shower chair, FWW. Her leg is wrapped with soraya bandage, pt states has removed soraya bandage. Wearing 1 sandal . Pt is icing and elevating. Treatment Goals Patient/Caregiver Goals wants to be able to kneel, stairs PT-OP-C Subjective Start: 10/30/23 07:30 Freq: Status: Active Protocol: Document 01/19/24 13:52 NM (Rec: 01/19/24 14:31 NM [id number]) OP-PT Subjective Patient Comments Patient Comments Pt reports a little knee stiffness and 7-8/10 R knee following cleaning yesterday and rearranging her entire house. She follows up with surgeon. Did not bring exericse sheet. Reports medium hard wiht exercise. Has been wearing compression sleeve during day, which is helping with swelling. will be starting work on [employer] in upcoming weeks PT-OP-F Manual Assessment Start: 10/30/23 07:30 Freq: Status: Active Protocol: Document 10/30/23 09:03 NM (Rec: 10/30/23 17:12 NM [id number]) Manual Assessments Soft Tissue Assessment Soft Tissue Mobility Assessment Increased edema along entire RLE. Decreased R heel cord length Joint Mobility Assessment Joint Mobility Assessment Decreased AROM/PROM R knee with empty end feel PT-OP-G Mobility & Gait Start: 10/30/23 07:30 Freq: Status: Active Protocol: Document 10/30/23 09:03 NM (Rec: 10/30/23 17:12 NM [id number]) OP Mobility Evaluation Bed Mobility Rolling min A to assist with RLE Supine to and from Sit min A to assist with RLE to EOB Transfers Sit to Stand CGA to steady to standard walker, RLE in front and pt NWB OP Gait Assessment Gait Gait Assistance Required: Contact Guard Assist Distance (Feet) 20 Able to Maintain Weight Bearing Status No During Gait Assistive Devices Assistive Device Gait Belt,Standard Walker Gait Deviations General Gait Pattern Antalgic,Decreased Stride Length,Step-to Gait Factors Limiting Gait Function Factors Limiting Gait Function Decreased Activity Tolerance, Decreased Strength,Difficulty Following Directions, Incoordination,Limited Range of Motion,Pain,Poor Balance Comments Gait Comments Pt NWB on RLE despite education regarding WBAT. RLE is plantarflexed PT-OP-J Posture/Palpation/Skin Start: 10/30/23 07:30 Freq: Status: Active Protocol: Document 10/30/23 09:03 NM (Rec: 10/30/23 09:54 NM [id number]) Posture Evaluation Position Standing Head/C-Spine Posture Forward Head L-Spine Posture Increased Lordosis Shoulder Posture (L) Rounded,(R) Rounded,(L) Forward,(R) Forward Pelvis Posture Anteriorly Tilted Weight Distribution Weight Shifted Left,Decreased Wt.Bear on (R) Hip Posture (L) Externally Rotated,(R) Externally Rotated Knee Posture (L) Genu Valgus,(R) Genu Valgus Patellar Posture (L) Superior,(R) Superior Ankle/Foot Posture (R) Plantarflexed Comments Posture Comments Demos strong L knee hyperextension Palpation Assessment Location R knee Palpation Findings Edema,Soft Tissue Tightness Palpation Details Increased edema entire RLE, especially near incision No tenderness along posterior calf to knee/thigh Tenderness along R knee Skin Assessment Circumference Measurement RLE Location ankle figure 8 : 54 cm Comments around patellar: 45 cm Incisional Assessment Incision Appearance/Comments Incision covered by bandage with 1 spot of blood. Otherwise, clean, dry and intact. No signs or symptoms of infection or DVT Other Assessments Skin Assessment Comments Bruising along shanna-lateral thigh, posterior calf PT-OP-K Range of Motion Start: 10/30/23 07:30 Freq: Status: Active Protocol: Document 01/12/24 13:47 NM (Rec: 01/12/24 14:36 NM [id number]) Knee Goniometric Range of Motion Knee Right Flexion Active (degrees) 115 Extension Active (degrees) 0 Comments IE: 50 deg flex, lacking 20 deg ext; empty end feel 01/12/24: 115 deg flex, 0 deg ext Left Flexion Active (degrees) 120 Hyper-Extension Active 5 PT-OP-M Strength Start: 10/30/23 07:30 Freq: Status: Active Protocol: Document 01/12/24 13:47 NM (Rec: 01/12/24 14:36 NM [id number]) Knee Strength Knee Manual Muscle Testing Right Flexion (S2) 4 Good Extension (L3) 4 Good Comments 01/12/24: 4/5 Left Flexion (S2) 4- Good- Extension (L3) 4- Good- PT-OP-T Assessment and Plan Start: 10/30/23 07:30 Freq: Status: Active Protocol: Document 04/14/24 11:55 NM (Rec: 04/14/24 11:59 NM [id number]) Physical Therapy Assessment Goals Six Impairment R knee flexion AROM lacking; currently 50 deg Short Term Goal (STG) Pt will improve R knee flexion to at least 90 deg in order to demonstrate improved ROM for stairs and gait 11/10/23: 89D AROM 11/13/23: 98 deg post manual and wall slides 11/20/23: 100 deg prior to manual treatment 12/04/23:100D prior to treatment. STG Duration 6 weeks MET Shelter Goal (LTG) Pt will improve R knee flexion to at least 115 deg in order to demonstrate improved ROM for stairs and gait 12/15/23: 102 deg pre manual, 100 deg post manual 12/22/23: 115 deg pre manual, 118 deg post manual 01/12/24: 115 deg flex LTG Duration 10 weeks MET 01/12/24 Five Impairment stairs Short Term Goal (STG) Pt will be able to perform at least 10 step ups with RLE and 1 or fewer hand rail assist in order to demonstrate increased R knee ROM and strength 11/27/23: met 12/15/23: 2x10 step ups on RLE wih 1 hand assist STG Duration 6 weeks MET Licensed Marriage And Family Therapist Goal (LTG) Pt will perform at least 12 stairs with reciprocal pattern and 1 or fewer hand rail assist in order to demonstrate improved BLE strength and R knee mobility to perform stairs up to apartment 01/12/24: 13 stairs in MAP building with 1 hand support on rail using reciprocal pattern; decreased control with descent LTG Duration 12 weeks- 04/08/24; PARTIALLY MET 01/12/24 Four Impairment gait Short Term Goal (STG) Pt will ambulate without LRAD at least short community distances (500 ft) in order to demonstrate improved BLE strength and normalized gait mechanics, if appropriate 11/27/23: 250' with 4WW, 250' w /out 4WW. 12/15/23: pt reports that she an make 3 laps around [place] without an AD or a cart and no increase in R knee pain STG Duration 6 weeks PROGRESSING Shelter Goal (LTG) Pt will ambulate without LRAD with normalized gait mechanics at least 1000 ft in order to demonstrate improved BLE strength, if appropriate 01/12/24: 1360 ft without AD, mildly antalgic gait but due to L knee not R surgical knee but no increase in kne pain LTG Duration 12 weeks MET Three Impairment transfers Short Term Goal (STG) Pt will be able to transfer on /off bed IND in order to demonstrate improved strength and less caregiver burden 11/13/23: pt able to transfer on /off bed IND with minimal pain STG Duration 3 weeks MET Licensed Marriage And Family Therapist Goal (LTG) Pt will be able to perform at least 10 STS with or without LRAD in order to demonstrate improved BLE strength for transfers and gait 01/12/24: 10 STS without pain from standard chair ht without UE assist and no compensations LTG Duration 12 weeks MET 01/12/24 Two Impairment R knee strength Short Term Goal (STG) Pt will improve R knee flex/ ext strength to at least 4-/5 MMT in order to demonstrate increased strength for gait, transfers, and functional mobility 12/15/23: 4-/5 STG Duration 8 weeks Shelter Goal (LTG) Pt will improve R knee flex/ ext strength to at least 4+/5 MMT in order to demonstrate increased strength for gait, transfers, and functional mobility 01/12/24: 4/5 knee flex/ext LTG Duration 12 weeks or 04/08/24- PROGRESSING 01/12/24 One Impairment R knee AROM ext lacking 20 deg Short Term Goal (STG) Pt will improve R knee extension AROM to at least 10 deg in order to improve terminal extension for gait 11/13/23: lacking 10 deg ext post e-stim and manual tx 12/04/23: Deg 7 12/15/23: lacking 3 deg pre manual STG Duration 4 weeks Licensed Marriage And Family Therapist Goal (LTG) Pt will improve R knee extension AROM to at least 3 deg in order to improve terminal extension for gait 12/22/23: lacking 2 deg of extension 01/12/24: 0 deg ext LTG Duration 8 weeks MET 01/12/24 Assessment Summary Assessment Pt evaluated in October s/p R TKA. She attended x18 visits. Pt progressed well toward goals, slowly with limited activity tolerance. Pt planning to go back to work at last progress note for holiday season; she canceled scheduled appt during time period and did not make further appt. Physical Therapy Plan Frequency and Duration Frequency of Treatment 1x/Week Duration of treatment (weeks) 12 Plan of Care Start Date 01/12/24 Plan of Care End Date 04/08/24 Therapeutic Interventions Therapeutic Interventions Balance Training,Gait Training ,Home Exercise Program,Joint Mobilizations,Lymphedema Management,Manual Therapy, Neuromuscular Re-education, Orthotic/Prosthetic Management ,Patient/Caregiver Education, Self-Care/Home Management, Sensory Integration,Soft Tissue Mobilization, Therapeutic Activities, Therapeutic Exercises Modalities Cold Pack/Ice Massage,Electric Stimulation,Hot Packs, Ultrasound Discharge Physical Therapy Discharge Reasons No Longer Attending PT Discharge Comments Pt has not been seen in clinic since 01/19/24. Pt canceled appt scheduled and did not make further appt. Progressing toward goals, meeting several but not all. Pt plan of care now . She will need new referral to return if needed. Next Visit Focus/Plan Next Note Type Discharge Summary Next Visit Plan discharge from PT
== END 2024-04-15 12:25 | disposition home or self-care (01) ==
LOC: PHYS 13:45
PROVIDERS: Family Provider Family Medicine; PCP Family Medicine; Referring Provider Orthopaedic Surgery; Visit Provider Orthopaedic Surgery
DX: M17.11 Unilateral primary osteoarthritis, right knee (principal); R53.1 Weakness; R27.8 Other lack of coordination; M25.661 Stiffness of right knee, not elsewhere classified
CPT/HCPCS: 97010; 97032; 97110; 97112; 97116; 97140; 97161; 97535